=== PATIENT | male | born 1955 | race Caucasian/White ===

== ENCOUNTER 2016-07-07 05:55 | Inpatient (IN) | payer MEDICARE, OTHER ==
[2016-07-07] VITALS (13 sets, daily range): BP systolic 113–231; BP diastolic 31–101; PULSE 92–121; RESP 11–19; O2SAT 95–100
[~2016-07-07] VITALS: Ht 185.4 cm; Wt 85.2 kg
[~2016-07-07 05:55] MED LIST: CALC500T9 PO; HYDR2TAB28 PO; PANT40TA3 PO; SUCR1TAB PO; ZOF8 PO
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
[2016-07-07] MEDS ORDERED: Pantoprazole Inj 80 MG, Pharmacy To Mix 1 EA in 0.9% Sodium Chloride 80 ML IV ONE ×2 (06:10)
[2016-07-07] MEDS ORDERED: Pantoprazole 4 mg/mL 10 mL Inj IVPUSH ONE (06:10)
[2016-07-07] MEDS ORDERED: Promethazine 25 mg/mL Inj IM ONE (06:25)
[2016-07-07] MEDS ORDERED: Ondansetron 8 mg ODT Tablet PO ONE (06:25)
[2016-07-07] MEDS ORDERED: HYDROmorphone 1 mg/mL Inj IM ONE (06:25)
[2016-07-07] MEDS ORDERED: HYDROmorphone 1 mg/mL Inj IVPUSH PRN (07:15)
[2016-07-07 07:30] LABS: BASOPHILS % (AUTO) 0.1 % (0-3); EOSINOPHILS % (AUTO) 0 % (0-5); MONOCYTES % (AUTO) 3.3 % (4-12); Mean Corpuscular Hemoglobin 31.6 pg (27.0-35.0); Mean Corpuscular Volume 96.1 fL (81-100); NEUTROPHILS % (AUTO) 94.3 % (40-74); Platelet Count 327 bil/L (150-400)
[2016-07-07 07:43] LABS: INR 0.98 ratio
[2016-07-07] MEDS ORDERED: Labetalol 5 mg/mL 4 mL Inj IVPUSH ONE (07:45)
[2016-07-07 08:00] LABS: Magnesium 2.3 mg/dL (1.6-2.6)
[2016-07-07] MEDS: Labetalol 5 mg/mL 4 mL Inj IVPUSH ONE ×2 (08:23→08:42)
[2016-07-07] MEDS ORDERED: cloNIDine 0.1 mg Tablet PO ONE (09:00)
--- NOTE | 2016-07-07 09:23 | DRSVH ---
PROCEDURE: X-RAY CHEST ONE VIEW, PORTABLE ([id number]) INDICATIONS: vomiting TECHNIQUE: One view of the chest was acquired. COMPARISON: [facility], CR, XR CHEST 1VW (PORTABLE), 04/05/2016, 3:06. FINDINGS: Surgical changes and devices: tree inspector leads are seen over the chest. Lungs and pleura: No pleural effusions or pneumothorax. Lungs are clear. Vague density over the ce ntral aspect of the left upper lung field is attributed to the first rib. Mediastinum: Mediastinal contours appear normal. Heart size is normal. Bones and chest wall: No suspicious bony lesions. Overlying soft tissues appear unremarkable. IMPRESSION: Acute disease it is not seen in the upright portable chest. Dictated by: Konstantin Alan M.D. on 07/07/2016 at 9:21 Approved by: Konstantin Alan M.D. on 07/07/2016 at 9:21
[2016-07-07] MEDS ORDERED: VIT1TABL57 PO (10:16)
[2016-07-07] MEDS: Ondansetron 2 mg/mL 2 mL Inj IVPUSH PRN ×3 (10:31→21:08)
[2016-07-07] MEDS ORDERED: Ondansetron 2 mg/mL 2 mL Inj IVPUSH PRN (10:40)
[2016-07-07] MEDS ORDERED: Alum-Mag Hydrox-Simeth 30 mL Suspension PO PRN ×2 (10:40→15:35)
[2016-07-07] MEDS ORDERED: hydrALAZINE 20 mg/mL Inj IV ONE (12:25)
--- NOTE | 2016-07-07 12:47 | NUR ---
Admit Pt on unit at 1145, able to transfer self from gurney to bed. Pt actively vomiting brown/bile. Pt has right EJ connected to IV Protonix. Pt's BP is 227/100, will notify . C/o abd pain /, A&O, x3, MURRAY. Declines to remove pants at this time for skin assessment and wants to sleep. 1230 Medication given for BP and pt is sleeping, but awakens to voice. Will continue to monitor. Pt has call light in reach.
[2016-07-07] MEDS ORDERED: Polyethylene Glycol (PEG) 17 Gm Powder PO PRN (15:35)
[2016-07-07] MEDS ORDERED: hydrALAZINE 20 mg/mL Inj IV PRN (16:20)
--- NOTE | 2016-07-07 18:01 | NUR ---
BP/HR 1650 Pt's BP is 200/94. paged and new order for medications given. Meds given and at 1735 BP is 183/73. HR per tele is sinus tachy 109. Pt resting comfortably, no s/s of CP. Pt has history of hypertension. Will continue to monitor.
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
--- NOTE | 2016-07-07 18:41 | NUR ---
Desating Pt sleeping after pain medications given, snoring and O2 desating to high 80's on RA. KIMMIE r/f 4. Pt has YARD DRIVER in place and placed on 3L NC, sating 94-97%. HR still tachy at 100. Continue to monitor
[2016-07-07] MEDS: Pantoprazole 4 mg/mL 10 mL Inj IVPUSH SCH (21:08)
[2016-07-07] MEDS: Insulin Human REGular 300 Unit/3 mL Inj SUBQ SCH (23:10)
[2016-07-08] VITALS (8 sets, daily range): BP systolic 142–184; BP diastolic 68–88; PULSE 86–102; RESP 18; O2SAT 94–100
[2016-07-08] MEDS: Ondansetron 2 mg/mL 2 mL Inj IVPUSH PRN ×6 (00:45→22:26)
--- NOTE | 2016-07-08 04:19 | NUR ---
Pain / activity Continues to have mild nausea and moderate pain adequately controlled with prn Zofran and morphine approx every three hours. Pt is alert, restless in bed, steady on feet when OOB with SBA. Continues to require O2 via NC to keep sats > 92%. Hourly rounding ongoing.
[2016-07-08 07:05] LABS: Magnesium 2.2 mg/dL (1.6-2.6)
[2016-07-08] MEDS: Insulin Human REGular 300 Unit/3 mL Inj SUBQ SCH ×4 (07:30→22:00)
[2016-07-08 08:22] LABS: Mean Corpuscular Hemoglobin 32.1 pg (27.0-35.0); Mean Corpuscular Volume 95.3 fL (81-100)
[2016-07-08] MEDS: Pantoprazole 4 mg/mL 10 mL Inj IVPUSH SCH ×2 (10:43→21:04)
--- NOTE | 2016-07-08 14:17 | NUR ---
[facility] for dialysis: Patient arrived to [facility] via bed for ordered dialysis per tv news director Cheryl. Report received from primary RN. Patient awake, alert, and comfortable. Will continue to monitor. Addendum: 07/08/16 at 1422 by DENA TELLEZ RN semiconductor manufacturing technician called and notified that patient is in room 243-1 for dialysis.
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
--- NOTE | 2016-07-08 14:29 | NUR ---
Off [facility] to Dialysis on MOC Pt taken to [facility] at 1330 for dialysis. Pain better controlled with 2mg IV Morphine and nausea controlled with Zofran. Pt has been hypertensive with BP of 182/85 prior to leaving. Pt refused Hydralazine at this time because of dialysis, report passed to RN who will monitor.
--- NOTE | 2016-07-08 14:40 | NUR ---
Social Work Initial Assessment Attempt: SW attempted to meet with patient at bedside to discuss discharge plan. Patient currently off unit in HD at this time. Patient is a 61 year old male admitted inpatient for upper GI bleed and gastroparesis. Patient payer listed as Medicare and [facility]. Patient has no listed PCP. Patient current with HD on //. Per previous admit notes, Pt resides at home with his son where he remains independent with ADls. Pt uses no DME at baseline and does drive. Pt has no HH history, but has been to [facility] in the past. SW to confirm information upon patient return to unit. SW to follow. PLAN: Initial assessment pending completion. Current with HD. Possible home, no anticipated discharge needs. Vida RODRÍGUEZ
--- NOTE | 2016-07-08 17:15 | PCM.PNMED ---
Subjective Date of Service Jul 08, 2016 Subjective continues to have some nausea but has not had any further vomiting. tolerating clear liquid diet and requesting advancing to full. Exam Vital Signs Vital Sign - Last Date Time Temp Pulse Resp B/P Pulse Ox O2 Delivery O2 Flow Rate FiO2 07/08/16 13:17 182/85 07/08/16 09:46 36.9 102 18 94 Nasal Cannula 2.00 Intake and Output 07/07/16 07/07/16 07/08/16 Cumulative From/Thru 15:00 23:00 07:00 07/07/16 06:08 - 07/08/16 06:21 Intake Total 1000 ml 440 ml 550 ml 1990 ml Output Total 250 ml 0 ml 250 ml Balance 1000 ml 190 ml 550 ml 1740 ml Intake Oral 400 ml 550 ml 950 ml IV Total 1000 ml 40 ml 1040 ml Output Urine Total 0 ml 0 ml 0 ml Emesis 250 ml 250 ml # Bowel Movements 0 0 Exam General: Alert, Cooperative, No Acute Distress Head: Normal Eyes: Scleral Anicteric Nose: Mucous Membr Moist/[place] Mouth: Mucous Membr Moist/[place] Neck: Supple Chest & Lungs: Chest Wall Normal, Clear to auscultation bilat Cardiovascular: Regular Rate/Rhythm Abdomen: Non-tender, Non-distended, Normoactive bowel tones, Soft Extremities: No cyanosis/clubbing/edema bilat Neurological: Grossly Neurologically Intact, Normal Speech IVs and Medications Medications Reviewed: Medications were reviewed in detail Lab and Diagnostics Result Diagram: 07/08/16 0603 07/08/16 0603 X-Rays, CTs and MRIs Date of Service: 07/07/16 0610 PROCEDURE: X-RAY CHEST ONE VIEW, PORTABLE ([id number]) IMPRESSION: Acute disease it is not seen in the upright portable chest. Dictated by: Konstantin Alan M.D. on 07/07/2016 at 9:21 Approved by: Konstantin Alan M.D. on 07/07/2016 at 9:21 Assessment & Plan 60 year old male with multiple co-morbid conditions admitted with nausea, vomiting with possible hematemesis. # Acute on chronic intractable nausea, vomiting with reported hematemesis - h/o multiple admission in past for UGIB - last upper EGD 03/2016 - 1. Severe erosive esophagitis from 32 to 40 cm from the incisors with a small, adherent clot at the distal esophagus 2. Mild nonerosive gastritis.3. Mild duodenitis at the bulb. - h/h remaining stable - c/w PPI - advance diet to full liquid - Consider GI evaluation as inpatient if symptoms persist or h/h trending down otherwise will likely defer further f/u as outpatient. # Acute on somewhat chronic leukocytosis. poa. - ? if reactive to stress of vomiting - Afebrile with stable vital signs. No respiratory symptoms. No other focal symptoms. The patient has a history of leukocytosis in response to stress episodes such as acute abdominal pain, vomiting. - f/u labs # ESRD on Hemodialysis - HD on M/W/F - appreciate Nephrology consult. will f/u w/ recs # Hypertension, chronic. poorly controlled - doesn't seem to be on any BP meds at home! Need to verify - cover with prn IV Hydralazine for now - will f/u w/ nephrology consult for further BP recs # History of diabetes mellitus - c/w ISS Dispo: 2-3 days GI Prophylaxis: Proton Pump Inhibitor VTE Mechanical Devices: Intermittant Pneumatic CD Resuscitation Status: CPR: Attempt Resuscitation (discussed and verified with patient) Aries Arshad Jul 08, 2016 17:15
--- NOTE | 2016-07-08 17:23 | NUR ---
Pain: Patient requesting 2 mg of Morphine During dialysis patient stated 1 mg of Morphine IV ineffective for abdominal pain 11/06. Administered another 1 mg for a total of 2 mg. Will continue to monitor.
--- NOTE | 2016-07-08 18:00 | NUR ---
Dialysis Note: 4 hr tx. Right graft accessed without difficulty, 15 g needles. 400mL/hr NS IV to prevent clotting system, Citrasate used as well. Pt tolerated tx well, requested pain meds and zofran 3 hrs into tx, pain 5/10; floor RN notified and gave morphine and zofran. QB 400, Net UF goal 600. Please see DTR for complete record of VS.
[2016-07-09 00:03] VITALS: BP 168/75; PULSE 76; RESP 20; O2SAT 96
--- NOTE | 2016-07-09 05:47 | NUR ---
Pain / O2 sat Pt returned from dialysis at 1930, stable and alert. Pain and nausea adequately controlled with prn use of morphine and zofran around the clock. Wears O2 at night but still can desat due to apnea; oxygen sat rebounds immediately into high 90s. Hourly rounding ongoing.
[2016-07-09 05:56] VITALS: BP 179/76; PULSE 87; RESP 20; O2SAT 100
[2016-07-09] MEDS: Ondansetron 2 mg/mL 2 mL Inj IVPUSH PRN (06:21)
[2016-07-09] MEDS: Pantoprazole 4 mg/mL 10 mL Inj IVPUSH SCH (06:21)
[2016-07-09] MEDS: Insulin Human REGular 300 Unit/3 mL Inj SUBQ SCH ×2 (07:30→11:30)
[2016-07-09 08:00] VITALS: PULSE 82
[2016-07-09 09:51] VITALS: BP 135/78; PULSE 99; RESP 16; O2SAT 98
--- NOTE | 2016-07-09 10:23 | PCM.DIMED ---
Discharge Instructions Date of Service Jul 09, 2016 Dates of Hospitalization Jul 07, 2016 at 09:10 Discharge Diagnosis Discharge Diagnosis # Acute on chronic intractable nausea, vomiting with possible presenting hematemesis but with stable H/H count. present on admission. Almost resolved. # Acute on somewhat chronic leukocytosis. present on admission. ongoing. Suspect possibly reactive to stress of vomiting # ESRD on Hemodialysis # Hypertension, chronic. present on admission and exacerbated by stress of nausea and vomiting. Improved # History of diabetes mellitus, diet controlled. - HgA1C 6 Diet Low fat, Low Sodium, Heart Healthy, Diabetic Activity No restrictions Call your provider Fever or Chills, Shortness of breath, Bleeding, Chest pain, Vomitting Patient Instructions Seek immediate medical attention if any new or worsening signs or symptoms occur. Follow-up plan 1. Followup with primary care provider / executive secretary social welfare in 3-7 days and for consideration of further gastroenterology referral as outpatient. 2. Resume your outpatient hemodialysis as before Follow-up Provider: Benny Hitchcock MD, Masoud Jul 09, 2016 10:23
--- NOTE | 2016-07-09 13:07 | NUR ---
discharged ate regular lunch without any problems, denied nausea or abd pain. No new Rx, pt will have f/u with Irrigation System Operator and PCP, and GI if needed. His ride will be here at 1500.
--- NOTE | 2016-07-09 15:17 | NUR ---
Social Work initial Assessment D: EMR reviewed. See initial assessment. Pt is a 61Yold male admitted for Upper Gi Bleed and Gastroparesis. Insurance is Medicare and [facility]. PCP is not listed. Readmission score is 5/8-High. SW met with Pt at bedside, SW role explained. Pt lives at home with his son where he remains independent. Pt does not use DME. He does rely on other for transportation. Pt has no HH history. Pt was at [facility] in 2013. Pt receives HD MWF at the [facility]. SW anticipates Pt to discharge home via POV when medically stable, with friend to drive. No discharge needs identified. If needs arise, SW to address. A: Pt who is independent at baseline, HD MWF P:SW anticipates Pt to discharge home via POV when medically stable, with friend to drive. No discharge needs identified. If needs arise, [place] to address. Alfred Addendum: 07/09/16 at 1519 by ALFRED DAY Amended: Links added. Addendum: 07/09/16 at 1519 by ALFRED DAY Pt discharged home via POV. NO needs.
--- NOTE | 2016-07-09 18:14 | PCM.DC.MED ---
Discharge Summary Date of Service Jul 09, 2016 Dates of Hospitalization Date of Hospital Admission Jul 07, 2016 at 09:10 Date of Discharge: Jul 09, 2016 Providers: Admitting Physician: Aries Arshad Primary Care Physician: Chester Attending Physician: Aries Arshad Diagnosis at Time of Discharge Diagnosis at Time of Discharge # Acute on chronic intractable nausea, vomiting with possible presenting hematemesis but with stable H/H count. present on admission. Almost resolved. # Acute on somewhat chronic leukocytosis. present on admission. ongoing. Suspect possibly reactive to stress of vomiting # ESRD on Hemodialysis # Hypertension, chronic. present on admission and exacerbated by stress of nausea and vomiting. Improved # History of diabetes mellitus, diet controlled. - HgA1C 6 Consultations 1. Nephrology Procedures XRay, CTs & MRIs Date of Service: 07/07/16 0610 PROCEDURE: X-RAY CHEST ONE VIEW, PORTABLE ([id number]) IMPRESSION: Acute disease it is not seen in the upright portable chest. Dictated by: Konstantin Alan M.D. on 07/07/2016 at 9:21 Approved by: Konstantin Alan M.D. on 07/07/2016 at 9:21 Brief History 61 year old male with a history of gastroparesis, ERSD on dialysis, diabetes, pancreatitis, and hypertension who has had multiple hospitalizations for recurrent episodes of nausea/vomiting and occasional hematemesis presents again today with complaint of epigastric abdominal pain, nausea, and vomiting. In the ED patient's emesis was noted to be coffee-ground appearing and given concern for GI bleed and other underlying comorbidities he is being admitted to the hospitalist service. patient reports acute onset of these episodes yesterday but significantly worse this morning. He denies noting any red blood in emesis and has not noted any hematochezia or melena. Hospital Course # Acute on chronic intractable nausea, vomiting with reported hematemesis - h/o multiple admission in past for UGIB - last upper EGD 03/2016 - 1. Severe erosive esophagitis from 32 to 40 cm from the incisors with a small, adherent clot at the distal esophagus 2. Mild nonerosive gastritis.3. Mild duodenitis at the bulb. - h/h remaining stable - pt tolerating advanced diet and requesting discharge home today. - Consider GI evaluation as outpatient. # Acute on somewhat chronic leukocytosis. poa. - ? if reactive to stress of vomiting - Afebrile with stable vital signs. No respiratory symptoms. No other focal symptoms. The patient has a history of leukocytosis in response to stress episodes such as acute abdominal pain, vomiting. - f/u labs # ESRD on Hemodialysis - HD on M/W/F - appreciate Nephrology consult. will f/u w/ recs # Hypertension, chronic. - doesn't seem to be on any BP meds at home - cover with prn IV Hydralazine for now - pt notes that BP at home is under good control and is worse when having acute GI symptoms. # History of diabetes mellitus. diet controlled - c/w ISS by day of d/c abdomen is soft, nt, nd, +bs Exam Vital Signs (Last) Date Time Temp Pulse Resp B/P Pulse Ox O2 Delivery O2 Flow Rate FiO2 07/09/16 09:51 36.9 99 16 135/78 98 Room Air 07/08/16 09:46 2.00 Test 07/07/16 07:05 07/07/16 23:15 07/08/16 06:03 Neutrophils (%) (Auto) 94.3% (40-74) Lymphocytes (%) (Auto) 2.2% (14-46) Monocytes (%) (Auto) 3.3% (4-12) Eosinophils (%) (Auto) 0% (0-5) Basophils (%) (Auto) 0.1% (0-3) Prothrombin Time 10.5sec (8.1-12.5) Prothromb Time International Ratio 0.98ratio Total Bilirubin 0.3mg/dL (0.0-1.2) Aspartate Amino Transf (AST/SGOT) 19U/L (0-50) Alanine Aminotransferase (ALT/SGPT) 11U/L (0-44) Alkaline Phosphatase 93U/L (25-160) Total Protein 7.9g/dL (6.4-8.4) Albumin 4.2g/dL (3.4-5.0) Hold [place]ana Top Tube Received (Received) Hemoglobin A1c 6.0% (4.8-5.6) White Blood Count 18.1th/mm3 (3.8-10.1) Red Blood Count 3.43mil/mm3 (4.40-5.80) Hemoglobin 11.0g/dL (13.8-17.2) Hematocrit 32.7% (41.0-50.0) Mean Corpuscular Volume 95.3fL (81-100) Mean Corpuscular Hemoglobin 32.1pg (27.0-35.0) Mean Corpuscular Hemoglobin Concent 33.6% (32.0-37.0) Red Cell Distribution Width 13.4% (12.3-15.4) Platelet Count 308bil/L (150-400) Sodium Level 136mEq/L (134-144) Potassium Level 4.6mEq/L (3.5-5.2) Chloride Level 86mEq/L (97-108) Carbon Dioxide Level 26mmol/L (18-29) Blood Urea Nitrogen 65mg/dL (8-27) Creatinine 8.64mg/dL (0.76-1.27) Estimat Glomerular Filtration Rate 7mL/min (>59) Glucose Level 145mg/dL (60-99) Calcium Level 8.5mg/dL (8.5-10.1) Magnesium Level 2.2mg/dL (1.6-2.6) Discharge Medications Discharge Medications Vit B Cmplx 3/FA/Vit C/Biotin (Starla-Triston Rx Tablet) 1 Each Tablet 1 TABLET PO DAILY (Reported) As needed Calcium Carbonate (Tums) 500 Mg Tab.chew 1,000 MG PO PRN PRN PRN For Indigestion (Reported) Hydromorphone (Hydromorphone) 2 Mg Tablet 2 MG PO Q4H PRN PRN Pain (Reported) Ondansetron (Zofran) 8 Mg Tablet 8 MG PO Q4H PRN PRN For Nausea (Reported) Followup Plan Disposition: Home Follow-up plan 1. Followup with primary care provider / architectural engineering teacher in 3-7 days and for consideration of further gastroenterology referral as outpatient. 2. Resume your outpatient hemodialysis as before Discharge Diet: Low fat, Low Sodium, Heart Healthy, Diabetic Discharge Activity: No restrictions Patient Instructions Seek immediate medical attention if any new or worsening signs or symptoms occur. Follow-up Provider: Benny Hitchcock MD Time spent 35 min copies to: Benny Hitchcock MD, Masoud Jul 09, 2016 18:13
[2016-10-16] MEDS ORDERED: LIDO5CRE17 TOPICAL (17:57)
== END 2016-07-09 13:30 | disposition home or self-care (01) | DRG 377 ==
LOC: SED 05:55 → OSC 09:10
PROVIDERS: ADMIT Internal Medicine; ATTEND Internal Medicine
PROC: 05HP33Z Insertion of Infusion Device into Right External Jugular Vein, Percutaneous Approach (ICD-10-PCS; 2016-07-07)
PROC: 5A1D00Z (ICD-10-PCS; principal; 2016-07-08)
DX: K92.0 Hematemesis (principal); N18.6 End stage renal disease; I12.0 Hypertensive chronic kidney disease with stage 5 chronic kidney disease or end stage renal disease; D72.829 Elevated white blood cell count, unspecified; E11.43 Type 2 diabetes mellitus with diabetic autonomic (poly)neuropathy; E11.29 Type 2 diabetes mellitus with other diabetic kidney complication; Z99.2 Dependence on renal dialysis; Z89.429 Acquired absence of other toe(s), unspecified side; Z87.891 Personal history of nicotine dependence

== ENCOUNTER 2016-10-17 00:05 | Day surgery (SDC) | payer MEDICARE, OTHER ==
[2016-10-17] VITALS (8 sets, daily range): BP systolic 126–151; BP diastolic 61–68; PULSE 74–92; RESP 12–17; O2SAT 94–99
[~2016-10-17] VITALS: Ht 185.4 cm; Wt 84.0 kg
[~2016-10-17 00:05] MED LIST changes: +LIDO5CRE17 TOPICAL; -PANT40TA3 PO; -SUCR1TAB PO; +VIT1TABL57 PO
[2016-10-17] MEDS ORDERED: HEPARIN 1000 UNIT/ML ONE (00:06)
--- NOTE | 2016-10-17 07:00 | NUR ---
ADMISSION NOTE MALE PT ADMITTED FOR FISTULOGRAM. DISCUSSED PLAN OF CARE WITH PT. SEE ADMIT AND FLOW SHEET
[2016-10-17] MEDS ORDERED: Heparin 5,000 Units/500 mL NS Premix IV ONE (08:50)
[2016-10-17] MEDS ORDERED: fentaNYL-PF 50 mCg/mL 2 mL Inj ONE (09:01)
--- NOTE | 2016-10-17 09:45 | NUR ---
POST PROCEDURE NOTE RETURNED FROM RETORT UNLOADER. SEE FLOW SHEET
--- NOTE | 2016-10-17 11:21 | DRSVH ---
PROCEDURE: 1. AV fistulogram. 2. Angioplasty of graft-vein anastomosis. 3. Conscious sedation x39 minutes. 4. Limited ultrasound of the left upper extremity arteriovenous fistula. INDICATIONS: Malfunctioning arteriovenous fistula. COMPARISON: [facility], XA, ARTERIO VENOUS FISTULOGRAM (PNL), 09/20/2015, 10:54. TECHNIQUE: Informed, written consent from the patient was obtained prior to the procedure. Patient wa s brought to the angiography suite, and conscious sedation was administered intravenously by usp staff, while continuous cardiorespiratory monitoring was performed. Maximal sterile barrier t echnique, hand hygiene, skin preparation, and sterile ultrasound technique (if ultrasound was utilize d) was followed. A mask, sterile gown, sterile gloves, a large sterile sheet, hand hygiene, and 2% ch lorhexidine or iodine was utilized for skin antisepsis. The left upper extremity was prepped and drap ed sterilely, and the skin and subcutaneous tissues overlying the peripheral aspect of the dialysis g raft were infused with lidocaine. Limited ultrasound of the left upper extremity arteriovenous fistul a was performed. The peripheral aspect of the dialysis graft was accessed antegrade with a micropunct ure set. Contrast was injected for arteriovenous fistulogram. A Glidewire was advanced into the venou s limb, over which a 6 [place] sheath was advanced. Intravenous heparin was administered. A 40 mm long balloon was expanded to 8.2 mm diameter at the graft-venous anastomosis, followed by repeat arteriov enous fistulogram. Sheath was removed and the venotomy was closed with pursestring closure technique. FLUOROSCOPY TIME: 1.8 minutes FINDINGS: The arterial-graft anastomosis is patent by ultrasound and by arteriovenous fistulogram. T here is high-grade stenosis of the graft vein anastomosis, resolved following 8.2 mm angioplasty. The re is no change in chronic, well collateralized left brachiocephalic vein occlusion. IMPRESSION: 1. High-grade stenosis at the graft-venous anastomosis, resolved following 8.2 mm angioplasty. 2. No change in chronic, well collateralized central venous occlusion. Dictated by: Georgi Gottlieb M.D. on 10/17/2016 at 11:14 Approved by: Georgi Gottlieb M.D. on 10/17/2016 at 11:19
--- NOTE | 2016-10-17 12:15 | NUR ---
DISCHARGED, INSTRUCTIONS GIVEN
== END 2016-10-17 23:59 | disposition home or self-care (01) ==
LOC: SOUO 00:05
PROVIDERS: ATTEND Radiology Diagnostic Radiology
DX: T82.858A Stenosis of other vascular prosthetic devices, implants and grafts, initial encounter (principal); Y83.2 Surgical operation with anastomosis, bypass or graft as the cause of abnormal reaction of the patient, or of later complication, without mention of misadventure at the time of the procedure; I12.0 Hypertensive chronic kidney disease with stage 5 chronic kidney disease or end stage renal disease; E11.29 Type 2 diabetes mellitus with other diabetic kidney complication; N18.6 End stage renal disease; Z99.2 Dependence on renal dialysis; D63.1 Anemia in chronic kidney disease; N25.0 Renal osteodystrophy; Z87.891 Personal history of nicotine dependence
CPT/HCPCS: 36902; 99152; 99153; C1725; C1769; C1894; J1644; J2250; J3010; Q9967

== ENCOUNTER 2016-11-09 23:23 | Inpatient (IN) | payer MEDICARE, OTHER ==
[~2016-11-09] VITALS: Ht 185.4 cm; Wt 85.9 kg
[~2016-11-09 23:23] MED LIST changes: -LIDO5CRE17 TOPICAL
[2016-11-09 23:26] VITALS: BP 194/86; PULSE 111; RESP 21; O2SAT 97
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
[2016-11-09] MEDS ORDERED: 0.9% Sodium Chloride 1,000 ML IV ONE (23:38)
[2016-11-09] MEDS ORDERED: Ondansetron 2 mg/mL 2 mL Inj IVPUSH ONE (23:40)
[2016-11-09] MEDS ORDERED: Pantoprazole 4 mg/mL 10 mL Inj IVPUSH ONE (23:40)
[2016-11-10] VITALS (19 sets, daily range): BP systolic 112–227; BP diastolic 53–99; PULSE 83–119; RESP 16–22; O2SAT 95–100
[2016-11-10] MEDS: HYDROmorphone 1 mg/mL Inj IVPUSH PRN ×5 (00:11→20:29)
[2016-11-10 00:58] LABS: INR 0.99 ratio
[2016-11-10 01:03] LABS: BASOPHILS % (AUTO) 0.2 % (0-3); EOSINOPHILS % (AUTO) 0 % (0-5); MONOCYTES % (AUTO) 3.3 % (4-12); NEUTROPHILS % (AUTO) 94.3 % (40-74); Platelet Count 335 bil/L (150-400)
[2016-11-10 01:09] LABS: Magnesium 1.9 mg/dL (1.6-2.6)
[2016-11-10] MEDS ORDERED: Ondansetron 2 mg/mL 2 mL Inj IVPUSH ONE (01:30)
[2016-11-10] MEDS ORDERED: Haloperidol 5 mg/mL Inj IVPUSH ONE (03:00)
[2016-11-10] MEDS ORDERED: Alum-Mag Hydrox-Simeth 30 mL Suspension PO PRN (03:25)
[2016-11-10] MEDS ORDERED: Polyethylene Glycol (PEG) 17 Gm Powder PO PRN (03:25)
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
--- NOTE | 2016-11-10 06:22 | NUR ---
Admit note Pt arrived to [facility] at 0400. Placed pt on tele. Pt's BP 227/93, repeat BP 209/91. Pt refused admit questions at this time. Pt stating just wanted to sleep. Call light within reach, frequent rounding, bed alarm for safety. Pt's BP continues to be elevated 206/87, paged, orders received for IV labetalol.
[2016-11-10 06:56] LABS: BASOPHILS % (AUTO) 0.2 % (0-3); EOSINOPHILS % (AUTO) 0.1 % (0-5); MONOCYTES % (AUTO) 2.5 % (4-12); Mean Corpuscular Hemoglobin 31.1 pg (27.0-35.0); Mean Corpuscular Volume 91.3 fL (81-100); NEUTROPHILS % (AUTO) 95.2 % (40-74); Platelet Count 333 bil/L (150-400)
[2016-11-10 07:45] LABS: Phosphorus 5.4 mg/dL (2.5-4.9)
[2016-11-10] MEDS: Labetalol 5 mg/mL 4 mL Inj IVPUSH PRN ×2 (07:45→20:32)
[2016-11-10] MEDS: Ondansetron 2 mg/mL 2 mL Inj IVPUSH PRN ×3 (08:04→20:29)
[2016-11-10] MEDS ORDERED: Insulin Human REGular 300 Unit/3 mL Inj IV ONE (08:05)
--- NOTE | 2016-11-10 09:49 | DRSVH ---
PROCEDURE: X-RAY ACUTE ABDOMINAL SERIES ([id number]) INDICATIONS: nausea and vomiting TECHNIQUE: One view chest and two views of the abdomen were acquired. COMPARISON: [facility], CR, XR CHEST 1VW (PORTABLE), 07/07/2016, 6:36. [facility] pital, CR, XR ABD ACUTE SERIES 3VW, 10/27/2015, 8:13. FINDINGS: Surgical changes and devices: None. Chest: Lungs are clear. Heart size is normal. No pleural effusions. No pneumoperitoneum. Abdomen: Bowel gas pattern demonstrates a paucity of small bowel gas. No abnormal dilated bowel loo ps or air-fluid levels. There is gas and stool throughout the colon including the rectum. No suspic ious calcifications. Bones: No suspicious bony lesions. IMPRESSION: 1. Paucity of small bowel gas but no definite evidence of bowel obstruction. Dictated by: Quinton Medina M.D. on 11/10/2016 at 9:41 Approved by: Quinton Medina M.D. on 11/10/2016 at 9:42
--- NOTE | 2016-11-10 09:50 | NUR ---
Hypertension, hyperglycemia, and dark emesis BP 213/92 early in the morning. PRN Labetalol 20 mg IV given. Repeat BP 180/[address] Gaspar aware of repeat BP reading, no further treatment at this point. Bedside BG > 300. 10 units Regular Insulin SQ given as ordered. Vomiting x1 in the morning. Emesis was dark liquid. Sample sent to lab for culture as instructed by Dr. Gaspar. Addendum: 11/10/16 at 1835 by ANITA RTAN RN Pt. is on Labetalol 200 mg PO TID now. BP is controlled. Las BP 128/53. Total 2 emesis since this am. Continue to manage nausea and vomiting with PRN IV Zofran.
--- NOTE | 2016-11-10 13:44 | CONS ---
[address] [address] CONSULTATION REPORT PATIENT: ELYSSA VILLA : 1955 MR#: [id number] ADMIT: 11/10/2016 JOB ID: [id number] DATE OF SERVICE: HISTORY: The patient is a very pleasant, 61-year-old, white male, who has a history of end-stage renal disease. He was admitted to [facility] for recurrent nausea and vomiting along with abdominal pain secondary to chronic diabetic gastroparesis. Renal consultation is being sought for further evaluation and management of his end-stage renal disease. The patient has been on dialysis for a number of years. The etiology of his renal failure is due to longstanding diabetes which has been complicated by peripheral neuropathy, peripheral vascular disease, diabetic renal disease and severe gastroparesis. He has had a number of admissions to our hospital for abdominal pain and intractable vomiting over the last several years. Recently he has had some improvement in his symptomatology with some manipulations of his diet and medication. He states that several days ago he began to have some intermittent sharp mid epigastric pain and cramping. This was associated with nausea and vomiting. He also states that he has felt some fever but no chills. He has had very little he has been able to hold down. The pain is nonradiating. He has not had a bowel movement in several days in part due to lack of oral intake. He denies any nasal congestion, sore throat, cough, wheezing, headache, chest pain, shortness of breath, or lower extremity edema. He normally dialyzes on Friday, Friday, and Friday. His last dialysis was this past Friday and he is scheduled for dialysis tomorrow. PAST MEDICAL HISTORY: Significant for type 2 diabetes with multiple end-organ involvement including gastroparesis, peripheral vascular disease, neuropathy, and diabetic renal disease. He also has a history of hypertension with hypertensive heart disease and hypertensive nephrosclerosis, hyperlipidemia, congestive heart failure, pancreatitis, left upper extremity lymphedema secondary to vascular occlusion, GERD, and osteoarthritis. PAST SURGICAL HISTORY: Is remarkable for a cardiac catheterization, multiple surgeries to both lower extremities, amputation of the great right toe, several dialysis catheters and several fistulas. ALLERGIES: He is allergic to CEPHALOSPORINS. SOCIAL HISTORY: He denies the current use of alcohol or tobacco. He did have a history of tobacco use but states that he quit 17 years ago. He does use marijuana intermittently which may be adding to his vomiting. He normally is able to perform his activities of daily living without significant problems or restriction. MEDICATIONS: At time of my evaluation, include labetalol, Zofran, and Dilaudid. FAMILY HISTORY: Noncontributory. REVIEW OF SYSTEMS: Detailed above. Otherwise is noncontributory. PHYSICAL EXAMINATION: Revealed a well-developed, somewhat pale-appearing, 61-year-old, white male who was alert and oriented x3 and in some mild distress due to his abdominal pain. His blood pressure this morning was 170/74 with a heart rate of 104. HEENT examination is remarkable for pale sclerae. Cornea, conjunctivae, pupils and extraocular muscles were unremarkable. Neck is supple without adenopathy, thyromegaly, or jugular venous distention. Lungs are clear to auscultation. Heart is regular and rhythmical with a soft systolic murmur. Abdomen is soft, with diminished bowel sounds. There is some mild epigastric tenderness which is nonradiating. There was no rebound and some mild guarding was noted. There was no evidence of any hepatosplenomegaly or any masses. Extremities do not show any evidence of any clubbing, cyanosis, or edema. Skin turgor is good. LABORATORY EXAMINATION: This morning, his white count is 12.0, hemoglobin of 11.1, hematocrit 32.6, red cells indices and platelet count are normal. His differential was remarkable for 95 segs. Sodium was 136, potassium 5.4, chloride of 89, bicarbonate 26, BUN and creatinine were 58 and 6.54 respectively. His glucose is 318. Liver function studies are unremarkable and his phosphorus is 5.4. Acute abdominal x-ray series was remarkable only for some small amounts of gas but no evidence of an obstruction. IMPRESSION: 1. Diabetic gastroparesis. 2. End-stage renal disease. 3. Hypertension with hypertensive heart disease and hypertensive nephrosclerosis. 4. Diabetic nephropathy. RECOMMENDATION: I will make arrangements for his dialysis in the morning. I would also like to start him on labetalol 200 mg orally as tolerated every 8 hours Once again, I would like to thank you for allowing me to participate in the care of this most pleasant and interesting patient. I will be following him closely with you.
--- NOTE | 2016-11-10 13:47 | NUR ---
IP status effective today, [facility] signed
[2016-11-10] MEDS ORDERED: Glucose 40% Oral Gel 15 Gm Tube PO PRN (15:05)
[2016-11-10] MEDS: Insulin LISPRO 300 Unit/3 mL Inj SUBQ SCH ×2 (16:59→22:21)
[2016-11-11] VITALS (11 sets, daily range): BP systolic 139–192; BP diastolic 65–89; PULSE 81–98; RESP 18; O2SAT 95–98
[2016-11-11] MEDS: HYDROmorphone 1 mg/mL Inj IVPUSH PRN ×7 (00:23→21:58)
[2016-11-11] MEDS: Ondansetron 2 mg/mL 2 mL Inj IVPUSH PRN ×6 (00:23→21:58)
[2016-11-11] MEDS: Labetalol 5 mg/mL 4 mL Inj IVPUSH PRN ×2 (04:24→21:04)
[2016-11-11 07:15] LABS: Mean Corpuscular Hemoglobin 30.4 pg (27.0-35.0); Mean Corpuscular Volume 93.7 fL (81-100)
[2016-11-11] MEDS: Insulin LISPRO 300 Unit/3 mL Inj SUBQ SCH ×4 (07:49→21:56)
--- NOTE | 2016-11-11 08:34 | NUR ---
Transferred to Dialysis Patient transferred to dialysis at 0800.
--- NOTE | 2016-11-11 11:14 | PCM.PNNEPH ---
Subjective Date of Service November 11, 2016 Subjective Patient is seen during HD. c/o nausea, received IV zofran. BP on the low side during HD, ~ 118/60. Denies cramps, CP, SOB. Exam Vital Signs Vital Sign - Last Date Time Temp Pulse Resp B/P Pulse Ox O2 Delivery O2 Flow Rate FiO2 11/11/16 10:03 81 11/11/16 04:27 163/82 Room Air 11/11/16 03:47 36.9 18 98 Intake and Output 11/10/16 11/10/16 11/11/16 Cumulative From/Thru 15:00 23:00 07:00 11/09/16 23:26 - 11/11/16 05:33 Intake Total 0 ml 400 ml 900 ml Output Total 420 ml 25 ml 445 ml Balance -420 ml 375 ml 455 ml Intake Oral 0 ml 400 ml 400 ml IV Total 500 ml Output Urine Total 0 ml 0 ml 0 ml Emesis 420 ml 25 ml 445 ml # Bowel Movements 1 1 Exam GA: AAOx3, NAD. HEENT: mild pallor,no adenopathy, thyromegaly, or jugular venous distention. Heart: RRR, S1/S2. Lungs: CTA, B/L, no wheezing no rhonchi. Abdomen: soft without any tenderness, rebound, guarding, masses, or hepatosplenomegaly. Extremities:No clubbing or cyanosis. Left AVF with good thrill and bruit. Lab and Diagnostics Result Diagram: 11/11/16 0636 11/11/16 0636 12-lead ECG EKG: Sinus rhythm, heart rate 97, normal axis, prolonged QTC at 483 ms otherwise normal intervals, first-degree AV block, no pathological Q waves or acute ischemic changes suggested elevation or depression. . Plan Impression 1. ESRD - 4 hr, 2K, 35HCO3, DFR 600, BFR 400 Revaclear Max, left AVF, 0 ml UF. 2. DM-2 with gastroparesis, neuropathy and nephropathy. 3. H/o Juana-Griffith tear and esophageal ulcers. 4. HTN with hypertensive nephrosclerosis. 5. Anemia of CKD. 6. Renal osteodystrophy. Plan: Continue HD Q MWF. Repeat Hb after HD. Continue labetalol. May need to add losartan or amlodipine if BP remains elevated. Isabella Pepper MD November 11, 2016 11:14
--- NOTE | 2016-11-11 13:11 | NUR ---
Dialysis note: 4 hr tx. Net UF 800. Accessed left UA fistula by Elena bautista, without difficulty. Pt was nauseous when he arrived and reported pain to floor RN, given zofran and dilaudid by floor RN, Jazmin. Pt stable throughout tx, QB 400. Please see DTR for complete record of VS. Pt returned to floor stable.
[2016-11-11 14:13] LABS: Mean Corpuscular Hemoglobin 30.7 pg (27.0-35.0); Mean Corpuscular Volume 93.5 fL (81-100)
--- NOTE | 2016-11-11 14:23 | NUR ---
Social Work: Initial Assessment Data & Assessment: See Initial assessment. EMR reviewed. Patient is a 61 year old male that admitted on 11/10/16 for ABD pain, Gastroparesis and hematemesis. Patient's does not have a current PCP. Patient's insurance is Medicare and [facility]. Patient does not have an Advance Directive/ DPOA and declined the information. Patient's re-admit score is 5 high risk. Patient CHANELLE is his son Orville Kaplan [phone]. Patient has no LTC or VA benefits. Patient lives independently at home with his family and does not drive at baseline. Patient's home is a three story home with 2 steps to enter and about 24 steps on the inside. [facility] and has no [facility] history. [facility]. Patient reports use occasional THC use, but declined CD assessment and CD resources. Patient did not have any current questions or concerns. Patient does not have any current discharge needs.SW will continue to follow and assist patient throughout stay. Plan: Patient will most likely discharge home no needs via POV when medically ready. SW will continue to follow and assist patient throughout stay. Nida Seay LMSW, FRANCO Addendum: 11/11/16 at 1439 by NIDA SEAY Amended: Links added. Addendum: 11/11/16 at 1446 by NIDA DAY Patient declined assistance with helping to locate a PCP.
--- NOTE | 2016-11-11 15:16 | NUR ---
[place] [facility] [place] [facility] at 1510. Gave report to YOLIS Bunn. Patient left floor via wheelchair with no signs of distress.
--- NOTE | 2016-11-11 15:30 | NUR ---
MOC Assumed patient @15:30, A/O x3. Independent in his room. Oriented to room and unit. Denies any discomfort at this time.
--- NOTE | 2016-11-11 19:36 | NUR ---
GI Patient is complaining of 7/10 abdominal pain that is unlike anything he has experienced accompanied with nausea and vomiting. Patient is requesting to speak with physician. paged
--- NOTE | 2016-11-11 19:38 | PCM.PNMED ---
Subjective Date of Service November 11, 2016 Subjective Patient was seen and examined at bedside today. Patient denies any chest pain, shortness of breath, nausea, vomiting, diarrhea. The patient states that his nausea and vomiting have improved however he is feeling very lethargic at this time. Overnight events: None Exam Vital Signs Vital Sign - Last Date Time Temp Pulse Resp B/P Pulse Ox O2 Delivery O2 Flow Rate FiO2 11/11/16 14:49 37.1 91 18 145/68 95 Room Air Intake and Output 11/10/16 11/10/16 11/11/16 Cumulative From/Thru 15:00 23:00 07:00 11/09/16 23:26 - 11/11/16 05:33 Intake Total 0 ml 400 ml 900 ml Output Total 420 ml 25 ml 445 ml Balance -420 ml 375 ml 455 ml Intake Oral 0 ml 400 ml 400 ml IV Total 500 ml Output Urine Total 0 ml 0 ml 0 ml Emesis 420 ml 25 ml 445 ml # Bowel Movements 1 1 IVs and Medications IV Fluids Physical Exam: GEN: Patient was awake, alert, responding appropriately to questions HEENT: Pupils equal round and reactive to light, extraocular eye muscles intact , Neck soft supple, trachea midline, nomocephalic/atraumatic CV: +S1/S2, regular rate and rhythm, systolic murmur auscultated Respiratory: Decreased, no wheezes, rales, rhonchi GI: +bowel sounds x4, soft, compressible, nontender to palpation EXT: no clubbing, cyanosis, edema, palpable thrill in the left upper extremity secondary to fistula Neuro: Cranial nerves II-XII grossly intact Psych: mood and affect were appropriate Medications Reviewed: Medications were reviewed in detail Lab and Diagnostics Result Diagram: 11/11/16 1408 11/11/16 0636 12-lead ECG EKG: Sinus rhythm, heart rate 97, normal axis, prolonged QTC at 483 ms otherwise normal intervals, first-degree AV block, no pathological Q waves or acute ischemic changes suggested elevation or depression. . Assessment & Plan Orville Kaplan is a 61-year-old male with a past medical history significant for gastroparesis, diabetes mellitus, non-insulin using, and end-stage renal disease on HD 3 times a week presented to [facility] emergency department complaining of intractable nausea and vomiting x 1 day. Acute intractable nausea and vomiting, present on admission. Active. - Patient presented with intractable nausea and vomiting x 1 day with reported coffee ground emesis with associated lower abdominal pain, fever, and chills. - Likely secondary to gastroparesis. - Low threshold for CT abdomen and pelvis with contrast if pain or Sx acutely worsen. - Lipase normal. - Ordered Zofran 4-8 mg every 4 hours as needed. add metoclopramide PRN after acute abd series resulted and no concern for SBO - Monitor for hematemesis - Avoid narcotics as this will likely worsen gastroparesis and symptoms. -May consider consult GI tomorrow if the patient's H&H is stable Acute leukocytosis, present on admission. Active. - Likely secondary to stress response versus infectious process. - May consider stool PCR if he develops diarrhea. - Low threshold for CT abdomen and pelvis with contrast if pain or Sx acutely worsen. Hyponatremia, acute, POA (resolved) - mild decrease in sodium - monitor with am labs ESRD on HD, chronic.Stable. - Patient due for next HD on Friday. - Monitor renal function and electrolytes daily. -Nephrology following Diabetes mellitus type II, non-insulin using, chronic. Stable. - Hemoglobin A1c 6.0 06/2016. - Ordered low dose correctional insulin. - Ordered heart healthy/carbohydrate consistent diet. -Lantus 10 units daily at bedtime Hypertension, chronic. Stable. - Not medically treated. - Patient given one dose of clonidine in ED. - Ordered PRN labetalol 20 mg IV for SBP >160. Hyperlipidemia, chronic. Presumed stable. - Not medically treated. Anemia, chronic. Stable. - Secondary to anemia of chronic disease. - The patient denies hematochezia or melena. The patient reportedly had coffee ground emesis, however, there are no overt signs of bleeding. - Hemoglobin 11.0. - Monitor H&H daily. GERD, chronic. Stable. - Continue Protonix 40 mg IV twice daily. PRN antiemetics: Zofran and Maalox. PRN bowel regimen: Senna and MiraLAX. PRN analgesics: Tylenol. Patient is now an inpatient as he will stay greater than 2 midnights and requires dialysis. There are now some concerns for the patient having an aspiration pneumonia secondary to the chronic nausea and vomiting as he does have a white count now. We will work the patient up for possible aspiration pneumonia. VTE Mechanical Devices: Venous Foot Pump Resuscitation Status: CPR: Attempt Resuscitation Sara Gaspar DO November 11, 2016 19:38
[2016-11-11] MEDS ORDERED: LidocaineVisc 2%:Antacid 1:1 10 mL Syringe PO ONE (19:50)
[2016-11-11] MEDS ORDERED: Pantoprazole Inj 80 MG in 0.9% Sodium Chloride 100 ML IV ONE (19:50)
[2016-11-11 20:10] LABS: BASOPHILS % (AUTO) 0.2 % (0-3); EOSINOPHILS % (AUTO) 0.1 % (0-5); MONOCYTES % (AUTO) 7.4 % (4-12); Mean Corpuscular Hemoglobin 30.7 pg (27.0-35.0); Mean Corpuscular Volume 93.9 fL (81-100); NEUTROPHILS % (AUTO) 85.5 % (40-74); Platelet Count 303 bil/L (150-400)
--- NOTE | 2016-11-11 20:29 | DRSVH ---
PROCEDURE: CT ABDOMEN AND PELVIS WITHOUT CONTRAST ([id number]) INDICATIONS: worsening abd pain, free air, hemoperitoneum? TECHNIQUE: Noncontrast 5 mm thick sections acquired from the diaphragms to the symphysis. 5 mm coronal and sagi ttal reformats were then performed. For radiation dose reduction, the following was used: automated exposure control, adjustment of mA and/or kV according to patient size. COMPARISON: [facility], CT, CT ABD PELVIS W CON, 12/06/2015, 10:02. FINDINGS: Image quality: Excellent. ABDOMEN: Lung bases: Small left hiatal hernia. Lung bases are otherwise clear. Heart size is normal. Solid organs: Liver and spleen are normal in size. The low-density focus within the right hepatic l obe laterally has increased slightly in size, currently measuring 27 mm. Gallbladder is within normal limits. Pancreas is normal in contours. No adrenal nodules. Kidneys are normal in size, without h ydronephrosis or nephrolithiasis. Peritoneum and bowel: A small hiatal hernia is present. There is moderate gastric distention. Unenha nced bowel loops demonstrate otherwise normal wall thickness and caliber. No free fluid or air. Maritza endix is within normal limits. Nodes and vessels: No retroperitoneal or mesenteric adenopathy by size criteria. Aorta and inferior vena cava are normal in caliber. Miscellaneous: No ventral hernias. PELVIS: Genitourinary: Bladder wall thickness is normal. Miscellaneous: No inguinal hernias or adenopathy. Bones: No suspicious bony lesions. No vertebral body compression fractures. IMPRESSION: 1. Moderate gastric distention, possibly indicating gastric outlet obstruction. 2. No pneumoperitoneum. 3. Normal appendix. 4. Small hiatal hernia. 5. Slight increase in size of low-density focus within the right hepatic lobe, which could be further assessed with nonemergent ultrasound, if clinically indicated. Dictated by: Georgi Gottlieb M.D. on 11/11/2016 at 20:22 Approved by: Georgi Gottlieb M.D. on 11/11/2016 at 20:27
--- NOTE | 2016-11-11 20:30 | NUR ---
OFF UNIT Pt off unit via wheelchair with Oswaldo from CT at 2000. Addendum: 11/12/16 at 0139 by KENDELL HINES RN Pt back on unit at 2019.
[2016-11-11] MEDS: Insulin GLARgine 100 Unit/mL Syringe SUBQ SCH (21:00)
[2016-11-12] VITALS (11 sets, daily range): BP systolic 115–185; BP diastolic 51–88; PULSE 72–100; RESP 16–20; O2SAT 95–98
[2016-11-12] MEDS: Ondansetron 2 mg/mL 2 mL Inj IVPUSH PRN ×5 (00:59→18:05)
[2016-11-12] MEDS: HYDROmorphone 1 mg/mL Inj IVPUSH PRN ×2 (00:59→04:24)
[2016-11-12] MEDS: Labetalol 5 mg/mL 4 mL Inj IVPUSH PRN (05:14)
[2016-11-12 07:13] LABS: BASOPHILS % (AUTO) 0 % (0-3); EOSINOPHILS % (AUTO) 0 % (0-5); MONOCYTES % (AUTO) 4.8 % (4-12); Mean Corpuscular Hemoglobin 30.5 pg (27.0-35.0); Mean Corpuscular Volume 94.9 fL (81-100); NEUTROPHILS % (AUTO) 91.5 % (40-74); Platelet Count 262 bil/L (150-400)
[2016-11-12] MEDS ORDERED: Propofol 10,000 mCg/mL 20 mL Inj ONE (08:56)
[2016-11-12] MEDS: HYDROmorphone 0.5 mg/0.5 mL iSecure Syringe IVPUSH PRN ×5 (09:08→20:55)
[2016-11-12] MEDS: Insulin LISPRO 300 Unit/3 mL Inj SUBQ SCH ×4 (09:09→21:44)
[2016-11-12] MEDS: Piperacillin-Tazo 3.375 Gm Inj 3.375 GM in Dextrose 5% Minibag Plus 50 ML IV SCH ×2 (09:09→20:34)
--- NOTE | 2016-11-12 10:06 | NUR ---
Social Work-readiness for discharge: Data:EMR Reviewed. Pt is on day 2 of hospitalization for gastroparesis per H&P. Pt is not medically stable anticipate 1-2 more days. Pt resides at home with his family. Pt goes to dialysis and declines any CD or PCP resources. Pt's family to provide transport home at discharge. per RN notes, pt has been up independent in his room. No anticipated discharge needs. SW will continue to follow if needs arise. Assessment:Pt who is independent at baseline. Plan:Pt to discharge home when medically stable via POV. No anticipated discharge needs. SW will continue to follow if needs arise. MARCOS Duval
[2016-11-12] MEDS ORDERED: Promethazine Inj 25 MG in Dextrose 5%-Pha MIX 50 ML IV PRN (10:10)
--- NOTE | 2016-11-12 10:46 | PCM.PNNEPH ---
Subjective Date of Service November 12, 2016 Subjective Nausea persists. C/o abd pain, fair appetite. Just received IV dilaudid and zofran. Exam Vital Signs Vital Sign - Last Date Time Temp Pulse Resp B/P Pulse Ox O2 Delivery O2 Flow Rate FiO2 11/12/16 06:09 73 120/53 11/12/16 05:09 36.9 20 96 Room Air Intake and Output 11/11/16 11/11/16 11/12/16 Cumulative From/Thru 15:00 23:00 07:00 11/09/16 23:26 - 11/12/16 05:36 Intake Total 380 ml 340 ml 1620 ml Output Total 800 ml 0 ml 0 ml 1245 ml Balance -800 ml 380 ml 340 ml 375 ml Intake Oral 350 ml 100 ml 850 ml IV Total 240 ml 740 ml Tube Irrigant 30 ml 30 ml Output Urine Total 0 ml 0 ml 0 ml Emesis 445 ml Ultrafiltrate 800 ml 800 ml # Voids 0 0 # Bowel Movements 0 1 Exam GA: AAOx3, NAD. HEENT: mild pallor, no adenopathy, thyromegaly, or jugular venous distention. Heart: RRR, S1/S2. Lungs: CTA, B/L, no wheezing no rhonchi. Abdomen: soft without any tenderness, rebound, guarding, masses, or hepatosplenomegaly. Extremities:No clubbing or cyanosis. Left arm sweling, left AVF with good thrill and bruit. Lab and Diagnostics Result Diagram: 11/12/16 0630 11/12/16 0630 12-lead ECG EKG: Sinus rhythm, heart rate 97, normal axis, prolonged QTC at 483 ms otherwise normal intervals, first-degree AV block, no pathological Q waves or acute ischemic changes suggested elevation or depression. . Plan Impression 1. ESRD, HD dependent. 2. DM-2 with gastroparesis, neuropathy and nephropathy. 3. H/o Juana-Griffith tear and esophageal ulcers. 4. HTN with hypertensive nephrosclerosis. 5. Anemia of CKD. 6. Renal osteodystrophy. Plan: Supportive treatment. Continue HD Q MWF. Continue Labetalol. Isabella Pepper MD November 12, 2016 10:46
[2016-11-12] MEDS ORDERED: 0.9% Sodium Chloride 500 ML IV ONE ×2 (11:00→16:11)
--- NOTE | 2016-11-12 12:51 | NUR ---
IV IV went was leaking badly, unsure of how much medication was actually getting through. New IV started thanks to IV therapy, pt requested re dose of dilaudid as the recent dose likely leaked out. Awaiting response from Dr Gaspar. Addendum: 11/12/16 at 1257 by GUILLERMO HERNANDEZ RN Ok from dr gaspar to give new dilaudid dose.
--- NOTE | 2016-11-12 15:38 | PCM.PNMED ---
Subjective Date of Service November 12, 2016 Subjective Patient was seen and examined at bedside today. Patient denies any chest pain, shortness of breath, diarrhea. The patient states that he had had a bowel movement however he has had significant abdominal pain and his nausea and vomiting have returned. Overnight events: Patient started having a new onset of abdominal pain and a CT was done for concerns of possible perforation. No perforations were found but the patient was found to have an increase in gastroparesis with a possible gastric outlet obstruction Exam Vital Signs Vital Sign - Last Date Time Temp Pulse Resp B/P Pulse Ox O2 Delivery O2 Flow Rate FiO2 11/12/16 10:42 80 11/12/16 08:33 36.9 18 165/74 98 Room Air Intake and Output 11/11/16 11/11/16 11/12/16 Cumulative From/Thru 15:00 23:00 07:00 11/09/16 23:26 - 11/12/16 05:36 Intake Total 380 ml 340 ml 1620 ml Output Total 800 ml 0 ml 0 ml 1245 ml Balance -800 ml 380 ml 340 ml 375 ml Intake Oral 350 ml 100 ml 850 ml IV Total 240 ml 740 ml Tube Irrigant 30 ml 30 ml Output Urine Total 0 ml 0 ml 0 ml Emesis 445 ml Ultrafiltrate 800 ml 800 ml # Voids 0 0 # Bowel Movements 0 1 Exam Physical Exam: GEN: Patient was awake, alert, responding appropriately to questions HEENT: Pupils equal round and reactive to light, extraocular eye muscles intact , Neck soft supple, trachea midline, nomocephalic/atraumatic CV: +S1/S2, regular rate and rhythm, systolic murmur auscultated Respiratory: CTAB, no wheezes, rales, rhonchi GI: +bowel sounds x4, soft, compressible, mild tenderness to palpation EXT: no clubbing, cyanosis, edema Neuro: Cranial nerves II-XII grossly intact Psych: mood and affect were appropriate IVs and Medications Medications Reviewed: Medications were reviewed in detail Lab and Diagnostics Result Diagram: 11/12/1662911/12/16629 12-lead ECG EKG: Sinus rhythm, heart rate 97, normal axis, prolonged QTC at 483 ms otherwise normal intervals, first-degree AV block, no pathological Q waves or acute ischemic changes suggested elevation or depression. . Assessment & Plan Orville Kaplan is a 61-year-old male with a past medical history significant for gastroparesis, diabetes mellitus, non-insulin using, and end-stage renal disease on HD 3 times a week presented to [facility] emergency department complaining of intractable nausea and vomiting x 1 day. Acute intractable nausea and vomiting, present on admission. Active. - Patient presented with intractable nausea and vomiting x 1 day with reported coffee ground emesis with associated lower abdominal pain, fever, and chills. - Likely secondary to gastroparesis. -CT abdomen and pelvis showed worsening gastroparesis with possible gastric outlet obstruction -Patient scheduled for EGD later today -Consider starting Protonix twice a day and sucralfate depending on study findings and recommendations from GI after EGD - Lipase normal. - Ordered Zofran 4-8 mg every 4 hours as needed. -Phenergan 25 mg every 6 when necessary nausea vomiting - Continue to monitor for further hematemesis -0.5 mg of Dilaudid every 6 when necessary pain -GI consulted (Dr. Kelly) Acute leukocytosis, present on admission. Active. -Most likely secondary to aspiration pneumonia - Viral PCR - Continue Zosyn Hyponatremia, acute, POA - mild decrease in sodium - 500 mL bolus of IV fluids ran it 200 mL an hour - monitor with am labs ESRD on HD, chronic.Stable. - Patient due for next HD on Friday - Monitor renal function and electrolytes daily. -Nephrology following Diabetes mellitus type II, non-insulin using, chronic. Stable. - Hemoglobin A1c 6.0 06/2016 - Ordered low dose correctional insulin. - Ordered heart healthy/carbohydrate consistent diet. -Lantus 10 units daily at bedtime Hypertension, chronic. Stable. - Not medically treated. - Patient given one dose of clonidine in ED. -Continue labetalol 200 mg 3 times a day - Ordered PRN labetalol 20 mg IV for SBP >160. Hyperlipidemia, chronic. Presumed stable. - Not medically treated. - Follow-up lipid panel Anemia, chronic. Stable. - Secondary to anemia of chronic disease from chronic renal failure. -Positive hematemesis yesterday - Hemoglobin trending down - Monitor H&H daily. GERD, chronic. Stable. - Continue Protonix 40 mg IV twice daily. PRN antiemetics: Zofran and Maalox. PRN bowel regimen: Senna and MiraLAX. PRN analgesics: Tylenol. The patient is being treated for possible aspiration pneumonia at this time. The patient will also have an EGD done later today for possible workup as to the continued nausea and vomiting to ensure there is nothing other than gastroparesis involved. VTE Mechanical Devices: Venous Foot Pump Resuscitation Status: CPR: Attempt Resuscitation Sara Gaspar DO November 12, 2016 15:38
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
[2016-11-12] MEDS ORDERED: Lactated Ringer's 1,000 ML IV SCH (17:17)
--- NOTE | 2016-11-12 17:17 | PCM.ANEP1 ---
Post Anesthesia Phase 1 PACU Phase 1 Assessment Date of Service: November 12, 2016 Vital Signs Vital Signs Date Time Temp Pulse Resp B/P Pulse Ox O2 Delivery O2 Flow Rate FiO2 11/12/16 16:39 36.7 92 16 178/88 98 Room Air 11/12/16 10:42 80 Anesthetic Administered: GA Level of Alertness: Awake, talking MURRAY's with Equal Strength: Yes Pain: No Nausea or Vomiting: No Oxygen Delivery: Room Air Lungs: Clear to Auscultation Complications: No Follow up Care: No Dashawn Garcia MD November 12, 2016 17:17
[2016-11-12] MEDS: Pantoprazole 4 mg/mL 10 mL Inj IVPUSH SCH (18:05)
[2016-11-12] MEDS: MetoCLOpramide 5 mg/mL 2 mL Inj IVPUSH PRN (20:55)
[2016-11-12] MEDS: Insulin GLARgine 100 Unit/mL Syringe SUBQ SCH (21:00)
--- NOTE | 2016-11-12 21:50 | NUR ---
Insulin Pt. refused Lantus this shift, BG was 167, notified via [employer] paging. Will continue to monitor.
--- NOTE | 2016-11-12 23:54 | ENDO ---
[address] [address] ENDOSCOPY PROCEDURE PATIENT: ELYSSA VILLA : 1955 MR#: [id number] ADMIT: 11/10/2016 JOB ID: [id number] PROCEDURE: Esophagogastroduodenoscopy. INDICATIONS: Nausea and vomiting. Please see Dr. Dashawn Garcia' anesthesia report for details regarding ASA classification, Mallampati score, and medications. INSTRUMENT USED: GIF H 180 J. PROCEDURE DETAILS: After informed consent was obtained, the patient was brought to the gastrointestinal suite where he was placed on oxygen via nasal cannula and monitored with continuous pulse oximeter, telemetry, and blood pressure monitoring. A time-out was performed, then he was placed in a left lateral decubitus position and medications were administered for sedation. A bite block was placed. Standard EGD scope was then inserted through the bite block and advanced under direct visualization to the second portion of the duodenum without difficulty. FINDINGS: 1. Normal-appearing 2nd and 1st portion of duodenum. 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 2. Normal-appearing pylorus. In the antrum and body of the stomach, there were flecks of old blood that we irrigated. We were able to clear. Retroflexed views in the gastric body revealed a normal-appearing cardia and fundus. 3. No active bleeding was seen in the stomach and following clearing of old blood, no further evidence of blood was seen. 4. The diaphragmatic hiatus was at approximately 41 cm. The GE junction was at 37 cm. Extending from the GE junction at 37 cm to 30 cm proximally, the esophagus was ulcerated and friable. Appearance was consistent with ulcerative esophagitis. Multiple biopsies were obtained. IMPRESSION: LA class D ulcerative esophagitis. RECOMMENDATIONS: 1. PPI b.i.d. 2. Consider starting Reglan 30 minutes before meals and at bedtime. COMPLICATIONS: None. ESTIMATED BLOOD LOSS: Less than 5 mL.
[2016-11-13] VITALS (7 sets, daily range): BP systolic 116–178; BP diastolic 51–83; PULSE 80–95; RESP 16; O2SAT 97–98
[2016-11-13] MEDS: HYDROmorphone 0.5 mg/0.5 mL iSecure Syringe IVPUSH PRN ×4 (00:28→13:01)
[2016-11-13] MEDS: Ondansetron 2 mg/mL 2 mL Inj IVPUSH PRN ×5 (00:29→21:38)
[2016-11-13] MEDS: Insulin LISPRO 300 Unit/3 mL Inj SUBQ SCH ×4 (08:06→21:57)
[2016-11-13] MEDS: Pantoprazole 4 mg/mL 10 mL Inj IVPUSH SCH ×2 (08:06→17:40)
[2016-11-13] MEDS: Piperacillin-Tazo 3.375 Gm Inj 3.375 GM in Dextrose 5% Minibag Plus 50 ML IV SCH ×2 (08:06→22:17)
[2016-11-13] MEDS: Polyethylene Glycol (PEG) 17 Gm Powder PO SCH ×2 (08:30→20:30)
[2016-11-13 08:40] LABS: Mean Corpuscular Volume 93.6 fL (81-100)
[2016-11-13] MEDS: MetoCLOpramide 5 mg/mL 2 mL Inj IVPUSH PRN (08:51)
[2016-11-13] MEDS ORDERED: DEXTROSE 5% IM PRN (09:09)
[2016-11-13] MEDS ORDERED: PROMETHAZINE IM PRN (09:09)
[2016-11-13] MEDS ORDERED: PHA MIX IM PRN (09:09)
[2016-11-13 09:23] LABS: Phosphorus 5.1 mg/dL (2.5-4.9); Unsaturated Iron Binding 130.6 ug/dL
--- NOTE | 2016-11-13 10:31 | PCM.PNNEPH ---
Subjective Date of Service November 13, 2016 Subjective s/p EGD showed ulcerative colitis, status post biopsy, no active bleeding identified. Patient is seen during dialysis. He complains of being nauseated. Doing about the same, no improvement so far Exam Vital Signs Vital Sign - Last Date Time Temp Pulse Resp B/P Pulse Ox O2 Delivery O2 Flow Rate FiO2 11/13/16 10:20 80 11/13/16 06:07 36.8 16 154/70 98 Room Air Intake and Output 11/12/16 11/12/16 11/13/16 Cumulative From/Thru 15:00 23:00 07:00 11/09/16 23:26 - 11/13/16 05:59 Intake Total 515 ml 870 ml 3005 ml Output Total 0 ml 1245 ml Balance 515 ml 870 ml 1760 ml Intake Oral 180 ml 50 ml 1080 ml IV Total 335 ml 820 ml 1895 ml Tube Irrigant 30 ml Output Urine Total 0 ml Emesis 0 ml 445 ml Ultrafiltrate 800 ml # Voids 4 4 # Bowel Movements 0 1 Exam GA: AAOx3, NAD. HEENT: mild pallor, no adenopathy, thyromegaly, or jugular venous distention. Heart: RRR, S1/S2. Lungs: CTA, B/L, no wheezing no rhonchi. Abdomen: soft, mild tenderness on the epigastric area, no rebound, guarding, masses, or hepatosplenomegaly. Extremities:No clubbing or cyanosis. Left arm swelling, left AVF with good thrill and bruit. Lab and Diagnostics Result Diagram: 11/13/1680411/13/16 08 12-lead ECG EKG: Sinus rhythm, heart rate 97, normal axis, prolonged QTC at 483 ms otherwise normal intervals, first-degree AV block, no pathological Q waves or acute ischemic changes suggested elevation or depression. . Plan Impression 1. ESRD, HD dependent. 2. DM-2 with gastroparesis, neuropathy and nephropathy. 3. H/o [place] tear and esophageal ulcers. s/p EGD on 11/12: ulcerative esophagitis. 4. HTN with hypertensive nephrosclerosis. 5. Anemia of CKD. 6. Renal osteodystrophy. 7. High-grade stenosis at the graft-venous anastomosis, s/p angioplasty on 10/17. Plan: HD per schedule. Follow GI recommendation. Continue current antihypertensive medications. Will give IV Aranesp 60 mcg during HD treatment. Repeat ferritin level. Isabella Pepper MD November 13, 2016 10:30
[2016-11-13] MEDS ORDERED: Darbepoetin Alfa 60 mCg/0.3 mL Inj IV ONE (10:35)
--- NOTE | 2016-11-13 10:47 | PCM.PNMED ---
Subjective Date of Service November 13, 2016 Subjective Patient was mildly nauseous but did not have any vomiting Patient denied epigastric pain Explained the result of the endoscopy Started full liquid diet HD today Exam Vital Signs Vital Sign - Last Date Time Temp Pulse Resp B/P Pulse Ox O2 Delivery O2 Flow Rate FiO2 11/13/16 10:20 80 11/13/16 06:07 36.8 16 154/70 98 Room Air Intake and Output 11/12/16 11/12/16 11/13/16 Cumulative From/Thru 15:00 23:00 07:00 11/09/16 23:26 - 11/13/16 05:59 Intake Total 515 ml 870 ml 3005 ml Output Total 0 ml 1245 ml Balance 515 ml 870 ml 1760 ml Intake Oral 180 ml 50 ml 1080 ml IV Total 335 ml 820 ml 1895 ml Tube Irrigant 30 ml Output Urine Total 0 ml Emesis 0 ml 445 ml Ultrafiltrate 800 ml # Voids 4 4 # Bowel Movements 0 1 Exam NAD, comfortably laying down on the bed no JVD, MMM, no LAD RRR, nl s1, s2 no mrg CTAB, no w,c S,ND,NT,normoactive BS+ warm, no edema, pulses 2/2 IVs and Medications Medications Reviewed: Medications were reviewed in detail Lab and Diagnostics Result Diagram: 11/13/1680411/13/16804 12-lead ECG EKG: Sinus rhythm, heart rate 97, normal axis, prolonged QTC at 483 ms otherwise normal intervals, first-degree AV block, no pathological Q waves or acute ischemic changes suggested elevation or depression. . Assessment & Plan Orville Kaplan is a 61-year-old male with a past medical history significant for gastroparesis, diabetes mellitus, non-insulin using, and end-stage renal disease on HD 3 times a week presented to [facility] emergency department complaining of intractable nausea and vomiting x 1 day. acute, active Acute intractable nausea and vomiting, likely due to ulcerative esophagitis, possible gastroparesis with uncontrolled DM, present on admission, EGD 11/12 showed ulcerative esophagitis, likely due to underlying GERD. biopsy in progress , no pathognomic findings for viral/fungal/cancerous lesions found. -continue PPI bid, -zofran 4-8mg q4h prn, Phenergan 25 mg q6h prn, likely to switch to PO once pt tolerate diet, sx controlled -appreciate further recs from Dr. Kelly) Acute leukocytosis, present on admission. Active. suspected Most likely secondary to aspiration pneumonia, Viral PCR not done, pt started on Zosyn for 2days -given no high suspicion of PNA, no respiratory sx, good oxygenation, will stop zosyn today and watch -trends wbc, PCT, fever curve Hyponatremia, acute, POA, s/p 500 mL bolus, , likely GI fluid loss, trends for now chronic, stable, resolved, ESRD on HD, chronic.Stable. continue HD as scheduled Friday - Monitor renal function and electrolytes daily. -Nephrology following Diabetes mellitus type II, non-insulin using, chronic. Stable. - Hemoglobin A1c 6.0 06/2016 - Ordered low dose correctional insulin. - Ordered heart healthy/carbohydrate consistent diet. -Lantus 10 units daily at bedtime Hypertension, chronic. Stable. - Not medically treated. - Patient given one dose of clonidine in ED. -Continue labetalol 200 mg 3 times a day - Ordered PRN labetalol 20 mg IV for SBP >160. Hyperlipidemia, chronic. Presumed stable. - Not medically treated. - Follow-up lipid panel Anemia, chronic. Stable. - Secondary to anemia of chronic disease from chronic renal failure. -Positive hematemesis yesterday - Hemoglobin trending down - Monitor H&H daily. GERD, chronic. Stable. - Continue Protonix 40 mg IV twice daily. dispo: likely 1-2more days diet; slowly advance diet Full code VTE Mechanical Devices: Venous Foot Pump Resuscitation Status: CPR: Attempt Resuscitation Time spent 35 minutes Brina Sol MD November 13, 2016 10:47
--- NOTE | 2016-11-13 13:50 | NUR ---
Dialysis note: 4 hrs tx 1000 ml net UF FELISA graft, accessed w/ no problems Pls see DTR for VS details Qb 400 No heparin given, Citrasate used instead + NS @ 300 ml/hr given O2 @ 2L via NC on during tx Phenergan IV given at start of tx Aranesp 60 mcg IV given as ordered PRN Dilaudid 0.5 mg IV + Zofran 8 mg IV given for pain and nausea Tolerated tx, slept at intervals Graft needle sites clotted w/in 10 min Stable condition at end of tx Report given to Jose LAGOS
[2016-11-13] MEDS: HYDROmorphone 1 mg/mL Inj IVPUSH PRN ×2 (17:41→21:41)
--- NOTE | 2016-11-13 19:48 | NUR ---
Pain/Nausea Pt has had decent pain and nausea management today, pt reports that reglan is ineffective, and that promethazine doesn't work well either, only zofran. Pain has been increased today, dilaudid barely keeping the pain down.
[2016-11-13] MEDS: Insulin GLARgine 100 Unit/mL Syringe SUBQ SCH ×2 (21:00→21:56)
--- NOTE | 2016-11-13 21:32 | NUR ---
Refused Meds Pt refused Lantus "these aren't my docs, I won't take it". I explained that his blood sugar has been high, so it is standard for an evening dose of Lantus to provide longer coverage. Pt also refused Miralax, but will take both stool softeners. "I can refuse to have diarrhea, can't I?". Absolutely, Orville. This nurse did explain that these are subtle medications. Addendum: 11/13/16 at 2202 by ADRIAN ORDOÑEZ RN UPDATE Pt reconsidered Lantus and accepted it. He stated that in the past, his blood sugar dropped too much overnight. I informed him I would be checking at night to make sure he doesn't get too low.
[2016-11-14] MEDS: Ondansetron 2 mg/mL 2 mL Inj IVPUSH PRN (02:15)
[2016-11-14] MEDS: HYDROmorphone 1 mg/mL Inj IVPUSH PRN (02:16)
--- NOTE | 2016-11-14 03:27 | NUR ---
Pain/Nausea Pt reported Pain and Nausea early on shift. 1 dose of Dilaudid and Zofran administered to relief of patient. Pt relaxed and comfortable. Several hours later, symptoms returned another dosage of both helped to relief symptoms. Pt uses call light appropriately, hourly rounding continues.
[2016-11-14 03:30] VITALS: BP 125/64; PULSE 68; RESP 16; O2SAT 97
[2016-11-14 05:29] VITALS: PULSE 80
[2016-11-14 05:40] VITALS: PULSE 91
[2016-11-14 05:52] LABS: BASOPHILS % (AUTO) 0.3 % (0-3); EOSINOPHILS % (AUTO) 1.1 % (0-5); Mean Corpuscular Hemoglobin 30.9 pg (27.0-35.0); Mean Corpuscular Volume 94.7 fL (81-100); NEUTROPHILS % (AUTO) 67.8 % (40-74); Platelet Count 247 bil/L (150-400)
[2016-11-14 06:37] LABS: Magnesium 1.8 mg/dL (1.6-2.6); Phosphorus 3.1 mg/dL (2.5-4.9)
[2016-11-14 07:56] VITALS: BP 135/63; PULSE 74; RESP 12; O2SAT 97
[2016-11-14 08:00] VITALS: PULSE 73
[2016-11-14] MEDS: Pantoprazole 4 mg/mL 10 mL Inj IVPUSH SCH (08:01)
[2016-11-14] MEDS: Insulin LISPRO 300 Unit/3 mL Inj SUBQ SCH ×2 (08:01→11:46)
[2016-11-14] MEDS: Polyethylene Glycol (PEG) 17 Gm Powder PO SCH (08:02)
[2016-11-14] MEDS ORDERED: LABE200T PO (08:34)
[2016-11-14] MEDS ORDERED: PANT40TA2 PO (08:34)
[2016-11-14] MEDS ORDERED: METO10TA3 PO (08:34)
--- NOTE | 2016-11-14 11:12 | NUR ---
Pat ELIZABETH requests that micro resp viral swab not be collected.
--- NOTE | 2016-11-14 11:52 | PCM.DIMED ---
Discharge Instructions Date of Service November 14, 2016 Dates of Hospitalization November 10, 2016 at 03:31 Discharge Diagnosis Discharge Diagnosis Acute intractable nausea and vomiting, likely due to ulcerative esophagitis, possible gastroparesis with uncontrolled DM Acute leukocytosis, likely reactive Hyponatremia, likely GI fluid loss Medication Instructions you can take zofran, Reglan 30minute prior to meals to prevent nausea, vomiting as needed Please continue to take Protonix 40mg twice a day Please note that Labetalol 200mg three times added to your blood pressure regimen. Please continue it. Diet Renal Diet, Other (please eat small and frequent amount of food) Activity No restrictions Call your provider Shortness of breath, Chest pain, Excessive diarrhea Patient Instructions You were hospitalized with intractable nausea, vomiting, found to have ulcer in you esophagus, it's likely that esophagus ulcer was contributing to your symptoms, as well as your diabetes and gastroparesis, Please note that you need follow up on biopsy result with or , Please follow up medicine instruction, dialysis as scheduled Follow-up Provider: Benny Hitchcock MD Follow-up with PCP in: 1 week Brina Sol MD November 14, 2016 11:52
--- NOTE | 2016-11-14 12:42 | NUR ---
Discharge Pt dc'd ambulatory to meet daughter at ED lot at 1222. All discharge paperwork and instructions reviewed. Pt verbalized understanding of instructions and new medications/ follow up needs. All belongings with pt. IV dc'd w/o complications.
--- NOTE | 2016-11-14 14:55 | PCM.DC.MED ---
Discharge Summary Date of Service November 14, 2016 Dates of Hospitalization Date of Hospital Admission November 10, 2016 at 03:31 Date of Discharge: November 14, 2016 Providers: Admitting Physician: Willa Saldivar DO Primary Care Physician: Nopcp Attending Physician: Willa Saldivar DO Diagnosis at Time of Discharge Diagnosis at Time of Discharge acute dx Acute intractable nausea and vomiting, likely due to ulcerative esophagitis, possible gastroparesis with uncontrolled DM Acute leukocytosis, likely reactive Hyponatremia, likely GI fluid loss chronic dx ESRD on HD, Diabetes mellitus type II, Hypertension Hyperlipidemia Anemia, Consultations GI Procedures XRay, CTs & MRIs PROCEDURE: CT ABDOMEN AND PELVIS WITHOUT CONTRAST ([id number]) INDICATIONS: worsening abd pain, free air, hemoperitoneum? TECHNIQUE: Noncontrast 5 mm thick sections acquired from the diaphragms to the symphysis. 5 mm coronal and sagittal reformats were then performed. For radiation dose reduction, the following was used: automated exposure control, adjustment of mA and/or kV according to patient size. COMPARISON: [facility], CT, CT ABD PELVIS W CON, 12/06/2015, 10:02. FINDINGS: Image quality: Excellent. ABDOMEN: Lung bases: Small left hiatal hernia. Lung bases are otherwise clear. Heart size is normal. Solid organs: Liver and spleen are normal in size. The low-density focus within the right hepatic lobe laterally has increased slightly in size, currently measuring 27 mm. Gallbladder is within normal limits. Pancreas is normal in contours. No adrenal nodules. Kidneys are normal in size, without hydronephrosis or nephrolithiasis. Peritoneum and bowel: A small hiatal hernia is present. There is moderate gastric distention. Unenhanced bowel loops demonstrate otherwise normal wall thickness and caliber. No free fluid or air. Appendix is within normal limits. Nodes and vessels: No retroperitoneal or mesenteric adenopathy by size criteria. Aorta and inferior vena cava are normal in caliber. Miscellaneous: No ventral hernias. PELVIS: Genitourinary: Bladder wall thickness is normal. Miscellaneous: No inguinal hernias or adenopathy. Bones: No suspicious bony lesions. No vertebral body compression fractures. IMPRESSION: 1. Moderate gastric distention, possibly indicating gastric outlet obstruction. 2. No pneumoperitoneum. 3. Normal appendix. 4. Small hiatal hernia. 5. Slight increase in size of low-density focus within the right hepatic lobe, which could be further assessed with nonemergent ultrasound, if clinically indicated. Dictated by: Georgi Gottlieb M.D. on 11/11/2016 at 20:22 Approved by: Georgi Gottlieb M.D. on 11/11/2016 at 20:27 ECG 12 Lead EKG: Sinus rhythm, heart rate 97, normal axis, prolonged QTC at 483 ms otherwise normal intervals, first-degree AV block, no pathological Q waves or acute ischemic changes suggested elevation or depression. . Invasive Procedures ENDOSCOPY PROCEDURE PATIENT: ORVILLE KAPLAN : 1955 MR#: [id number] ADMIT: 11/10/2016 JOB ID: [id number] PROCEDURE: Esophagogastroduodenoscopy. INDICATIONS: Nausea and vomiting. Please see Dr. Dashawn Garcia' anesthesia report for details regarding ASA classification, Mallampati score, and medications. INSTRUMENT USED: GIF H 180 J. PROCEDURE DETAILS: After informed consent was obtained, the patient was brought to the gastrointestinal suite where he was placed on oxygen via nasal cannula and monitored with continuous pulse oximeter, telemetry, and blood pressure monitoring. A time-out was performed, then he was placed in a left lateral decubitus position and medications were administered for sedation. A bite block was placed. Standard EGD scope was then inserted through the bite block and advanced under direct visualization to the second portion of the duodenum without difficulty. FINDINGS: 1. Normal-appearing 2nd and 1st portion of duodenum. 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 2. Normal-appearing pylorus. In the antrum and body of the stomach, there were flecks of old blood that we irrigated. We were able to clear. Retroflexed views in the gastric body revealed a normal-appearing cardia and fundus. 3. No active bleeding was seen in the stomach and following clearing of old blood, no further evidence of blood was seen. 4. The diaphragmatic hiatus was at approximately 41 cm. The GE junction was at 37 cm. Extending from the GE junction at 37 cm to 30 cm proximally, the esophagus was ulcerated and friable. Appearance was consistent with ulcerative esophagitis. Multiple biopsies were obtained. IMPRESSION: LA class D ulcerative esophagitis. RECOMMENDATIONS: 1. PPI b.i.d. 2. Consider starting Reglan 30 minutes before meals and at bedtime. COMPLICATIONS: None. ESTIMATED BLOOD LOSS: Less than 5 mL. Barb Kelly MD 11/12/16 5473 Brief History HPI obtained by on 09/10 Orville Kaplan is a 61-year-old male with a past medical history significant for gastroparesis, diabetes mellitus, non-insulin using, and end-stage renal disease on HD 3 times a week who presented to [facility] emergency department complaining of nausea and vomiting x 1 day. The patient reports that 1-2 days ago he began having nausea and vomiting. He reports that he has accompanying lower abdominal pain that is aching and throbbing in quality with intermittent sharpness. He rates his abdominal pain as a +6 out of 10 on a pain scale. He endorses associated subjective fever, chills, diaphoresis. He has had coffee ground emesis as well. He denies hematochezia or melena, vision changes, lightheadedness, dysuria, or diarrhea. He does have a chronic cough productive of clear sputum, as well as, chronic constipation. He has had similar symptoms previously. Vital signs in the ER: Temperature 36.4. Pulse 111. Respiratory rate 21. Blood pressure 194/86. Pulse ox 97% on room air. He received Protonix 40 mg IV 1, NS 1 L 1, Zofran 8 mg 1, and hydromorphone 1 mg IV 1. No PCP. . Hospital Course Orville Kaplan is a 61-year-old male with a past medical history significant for gastroparesis, diabetes mellitus, non-insulin using, and end-stage renal disease on HD 3 times a week presented to [facility] emergency department complaining of intractable nausea and vomiting x 1 day. acute dx Acute intractable nausea and vomiting, likely due to ulcerative esophagitis and gastroparesis with uncontrolled DM, EGD 11/12 showed ulcerative esophagitis, likely due to underlying GERD. multiple biopsies were taken and in progress, no pathognomic findings for viral/fungal/cancerous lesions found in EGD per Leticia. Patient was given PPI bid iv, switched to oral, nausea and vomiting controlled with zofran, Phenergan. Patient tolerated diet without sx. Patient was asked to follow up with Dr.Alagugurusamy for biopsy result. continue PPI bid, also suggested to take Reglan and zofran premeal to prevent symptoms. Acute leukocytosis, present on admission. Active. initially suspected aspiration pneumonia, pt was given Zosyn for 2days. however, given no high suspicion of PNA, no respiratory sx, good oxygenation, zosyn was stopped. Hyponatremia likely GI fluid loss,, resolved with IVF 500 mL bolus chronic dx ESRD on HD, chronic.Stable. continue HD as scheduled Friday Diabetes mellitus type II, non-insulin using, chronic. Stable. Hemoglobin A1c7.0, controlled with -Lantus 10 units daily at bedtime, low dose correctional insulin. Hypertension, chronic. started on labetalol 200 mg 3 times a day Hyperlipidemia, stable diet controlled, LDL80s Anemia, chronic. Stable. Secondary to anemia of chronic disease from chronic renal failure. Exam Vital Signs (Last) Date Time Temp Pulse Resp B/P Pulse Ox O2 Delivery O2 Flow Rate FiO2 11/14/16 08:00 73 11/14/16 07:56 36.9 12 135/63 97 Room Air Exam NAD, comfortably laying down on the bed no JVD, MMM, no LAD RRR, nl s1, s2 no mrg CTAB, no w,c S,ND,NT,normoactive BS+ warm, no edema, pulses 2/2 Test 11/10/16 00:43 11/10/16 06:20 11/11/16 20:03 11/13/16 08:05 Prothrombin Time 10.6sec (8.1-12.5) Prothromb Time International Ratio 0.99ratio Lipase 35U/L (13-60) Hemoglobin A1c 7.0% (4.8-5.6) Lactic Acid Level 2.0mmol/L (0.4-2.0) Iron Level 34ug/dL (35-150) Total Iron Binding Capacity 165ug/dL (250-450) Percent Iron Saturation 21%sat (15-50) Unsaturated Iron Binding 130.6ug/dL Ferritin 810ng/mL (30-400) Triglycerides Level 144mg/dL (0-149) Cholesterol Level 153mg/dL (100-199) LDL Cholesterol, Calculated 80.200mg/dL (0-99) VLDL Cholesterol 28.800mg/dL HDL Cholesterol 44mg/dL (>39) Cholesterol/HDL Ratio 3.48 (0.0-4.4) Test 11/14/16 05:18 White Blood Count 7.3th/mm3 (3.8-10.1) Red Blood Count 2.62mil/mm3 (4.40-5.80) Hemoglobin 8.1g/dL (13.8-17.2) Hematocrit 24.8% (41.0-50.0) Mean Corpuscular Volume 94.7fL (81-100) Mean Corpuscular Hemoglobin 30.9pg (27.0-35.0) Mean Corpuscular Hemoglobin Concent 32.7% (32.0-37.0) Red Cell Distribution Width 14.4% (12.3-15.4) Platelet Count 247bil/L (150-400) Neutrophils (%) (Auto) 67.8% (40-74) Lymphocytes (%) (Auto) 16.3% (14-46) Monocytes (%) (Auto) 14.0% (4-12) Eosinophils (%) (Auto) 1.1% (0-5) Basophils (%) (Auto) 0.3% (0-3) Sodium Level 137mEq/L (134-144) Potassium Level 4.7mEq/L (3.5-5.2) Chloride Level 97mEq/L (97-108) Carbon Dioxide Level 25mmol/L (18-29) Blood Urea Nitrogen 40mg/dL (8-27) Creatinine 4.06mg/dL (0.76-1.27) Estimat Glomerular Filtration Rate 16mL/min (>59) Glucose Level 142mg/dL (60-99) Calcium Level 7.9mg/dL (8.5-10.1) Phosphorus Level 3.1mg/dL (2.5-4.9) Magnesium Level 1.8mg/dL (1.6-2.6) Total Bilirubin 0.3mg/dL (0.0-1.2) Aspartate Amino Transf (AST/SGOT) 14U/L (0-50) Alanine Aminotransferase (ALT/SGPT) 7U/L (0-44) Alkaline Phosphatase 84U/L (25-160) Total Protein 5.2g/dL (6.4-8.4) Albumin 3.0g/dL (3.4-5.0) Procalcitonin 0.36ng/mL (0.00-0.08) Discharge Medications Discharge Medications Labetalol (Labetalol) 200 Mg Tablet 200 MG PO TID Prescribed by: BRINA RAMOS MD Pantoprazole DR (Protonix) 40 Mg Tablet 40 MG PO BID Prescribed by: BRINA RAMOS MD Vit B Cmplx 3/FA/Vit C/Biotin (Starla-Triston Rx Tablet) 1 Each Tablet 1 TABLET PO DAILY (Reported) As needed Calcium Carbonate (Tums) 500 Mg Tab.chew 1,000 MG PO PRN PRN PRN For Indigestion (Reported) Hydromorphone (Hydromorphone) 2 Mg Tablet 2 MG PO Q4H PRN PRN Pain (Reported) Metoclopramide (Metoclopramide) 10 Mg Tablet 10 MG PO ACHS PRN PRN For Nausea/ Vomiting Prescribed by: BRINA RAMOS MD Ondansetron (Zofran) 8 Mg Tablet 8 MG PO Q4H PRN PRN For Nausea (Reported) Additional med instructions you can take zofran, Reglan 30minute prior to meals to prevent nausea, vomiting as needed Please continue to take Protonix 40mg twice a day Please note that Labetalol 200mg three times added to your blood pressure regimen. Please continue it. Followup Plan Disposition: home Discharge Diet: Renal Diet, Other (please eat small and frequent amount of food ) Discharge Activity: No restrictions Patient Instructions You were hospitalized with intractable nausea, vomiting, found to have ulcer in you esophagus, it's likely that esophagus ulcer was contributing to your symptoms, as well as your diabetes and gastroparesis, Please note that you need follow up on biopsy result with or , Please follow up medicine instruction, dialysis as scheduled Follow-up Provider: Benny Hitchcock MD Follow-up with PCP in: 1 week Time spent 65min Brina Ramos MD November 14, 2016 14:55
--- NOTE | 2016-11-15 10:00 | PATH ---
SURGICAL PATHOLOGY Attending Physician:Donavon Lopez CASE STATUS: Signed Out PATIENT NAME: ELYSSA VILLA PID: [id number] : 1955 DATE COLLECTED:11/12/2016 00:00 SPECIMEN: Esophagus, Biopsy CLINICAL HISTORY: 1. DISTAL ESOPHAGUS FINAL DIAGNOSIS: 1.DISTAL ESOPHAGUS BIOPSY: ESOPHAGEAL SQUAMOUS MUCOSA WITH ACTIVE ESOPHAGITIS AND ULCERATION. NEGATIVE FOR FUNGAL ORGANISMS BY GMS STAIN. Negative for intestinal metaplasia. Negative for dysplasia and malignancy. Eosinophils are not increased. ICD10 code K20.9 GROSS DESCRIPTION: The specimen is received in one formalin filled container labeled with the patient's name, sublabeled "distal esophagus" and consists of 2 portions of tissue which aggregate to 0.3 x 0.3 x 0.2 CM. The specimen is entirely submitted in one cassette. 11/13/2016 DAC MICRO DESCRIPTION: A GMS stain was performed to assess for fungal organisms and is negative. The control stain shows appropriate reactivity. ICD-9 CODES: CPT CODES: 1: 01990, 50124 Electronically Signed Out Jessica Hatfield MD [facility] [address], [place] [address] Technical component performed at [facility], [address] [place] [address] Ave[address], [place], [address]
== END 2016-11-14 12:22 | disposition home or self-care (01) | DRG 380 ==
LOC: SED 23:23 → OBSVTOIN 11-10 03:31 → MPC 11-10 03:31 → MOC 11-11 15:27
PROVIDERS: ADMIT Internal Medicine; ATTEND Internal Medicine
PROC: 5A1D60Z (ICD-10-PCS; 2016-11-11)
PROC: 0DB38ZX Excision of Lower Esophagus, Via Natural or Artificial Opening Endoscopic, Diagnostic (ICD-10-PCS; principal; 2016-11-12 15:30)
DX: K22.10 Ulcer of esophagus without bleeding (principal); N18.6 End stage renal disease; E87.1 Hypo-osmolality and hyponatremia; I13.11 Hypertensive heart and chronic kidney disease without heart failure, with stage 5 chronic kidney disease, or end stage renal disease; F11.20 Opioid dependence, uncomplicated; K92.0 Hematemesis; E21.1 Secondary hyperparathyroidism, not elsewhere classified; E11.43 Type 2 diabetes mellitus with diabetic autonomic (poly)neuropathy; K31.84 Gastroparesis; E11.65 Type 2 diabetes mellitus with hyperglycemia; Z99.2 Dependence on renal dialysis; E78.5 Hyperlipidemia, unspecified; D63.1 Anemia in chronic kidney disease; K21.9 Gastro-esophageal reflux disease without esophagitis; Z87.891 Personal history of nicotine dependence

== ENCOUNTER 2016-11-16 19:03 | Inpatient (IN) | payer MEDICARE, OTHER ==
[~2016-11-16] VITALS: Ht 185.4 cm; Wt 86.8 kg
[~2016-11-16 19:03] MED LIST changes: +LABE200T PO; +METO10TA3 PO; +PANT40TA2 PO
[2016-11-16 19:08] VITALS: BP 127/63; PULSE 116; RESP 20; O2SAT 98
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
[2016-11-16] MEDS ORDERED: Ondansetron 2 mg/mL 2 mL Inj IVPUSH ONE (19:35)
[2016-11-16] MEDS ORDERED: 0.9% Sodium Chloride 1,000 ML IV ONE (19:35)
[2016-11-16] MEDS ORDERED: Pantoprazole Inj 80 MG, Pharmacy To Mix 1 EA in 0.9% Sodium Chloride 80 ML IV ONE ×2 (19:35)
[2016-11-16] MEDS ORDERED: Pantoprazole 4 mg/mL 10 mL Inj IVPUSH ONE (19:35)
[2016-11-16 20:09] LABS: BASOPHILS % (AUTO) 0.2 % (0-3); EOSINOPHILS % (AUTO) 0.3 % (0-5); MONOCYTES % (AUTO) 7.6 % (4-12); Mean Corpuscular Hemoglobin 30.6 pg (27.0-35.0); Mean Corpuscular Volume 94.9 fL (81-100); NEUTROPHILS % (AUTO) 87.4 % (40-74); Platelet Count 300 bil/L (150-400)
[2016-11-16 20:27] LABS: INR 0.96 ratio
[2016-11-16 20:40] VITALS: BP 155/66; PULSE 105; RESP 23; O2SAT 100
[2016-11-16] MEDS ORDERED: HYDROmorphone 1 mg/mL Inj IVPUSH ONE (21:00)
[2016-11-16] MEDS ORDERED: PEG/Electrolytes 4,000 mL Solution PO ONE (22:05)
[2016-11-16 22:10] VITALS: BP 158/67; PULSE 93; RESP 12; O2SAT 96
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
[2016-11-16] MEDS ORDERED: MetoCLOpramide 5 mg/mL 2 mL Inj IVPUSH PRN (23:20)
[2016-11-16 23:30] VITALS: BP 177/72; PULSE 83; RESP 18; O2SAT 100
[2016-11-16] MEDS: HYDROmorphone 1 mg/mL Inj IVPUSH PRN (23:58)
[2016-11-17] VITALS (9 sets, daily range): BP systolic 137–204; BP diastolic 57–88; PULSE 66–88; RESP 18–20; O2SAT 96–100
[2016-11-17] MEDS ORDERED: Glucose 40% Oral Gel 15 Gm Tube PO PRN (00:20)
[2016-11-17] MEDS: Ondansetron 2 mg/mL 2 mL Inj IVPUSH PRN ×5 (02:55→22:27)
[2016-11-17] MEDS: Insulin LISPRO 300 Unit/3 mL Inj SUBQ SCH ×4 (07:57→22:00)
[2016-11-17] MEDS: HYDROmorphone 1 mg/mL Inj IVPUSH PRN ×4 (08:34→22:28)
[2016-11-17 09:55] LABS: BASOPHILS % (AUTO) 0.3 % (0-3); EOSINOPHILS % (AUTO) 1.7 % (0-5); MONOCYTES % (AUTO) 9.5 % (4-12); Mean Corpuscular Hemoglobin 30.5 pg (27.0-35.0); Mean Corpuscular Volume 95.6 fL (81-100); NEUTROPHILS % (AUTO) 82.1 % (40-74); Platelet Count 283 bil/L (150-400)
--- NOTE | 2016-11-17 10:18 | PCM.PNMED ---
Subjective Date of Service November 17, 2016 Subjective pt denied having nausea, vomiting overnight, denied vomiting blood seen by at the bedside together, looks comfortable, haven't decided whether to do colonoscopy or not Exam Vital Signs Vital Sign - Last Date Time Temp Pulse Resp B/P Pulse Ox O2 Delivery O2 Flow Rate FiO2 11/17/16 09:07 36.7 77 18 158/57 97 Room Air Intake and Output 11/16/16 11/16/16 11/17/16 Cumulative From/Thru 15:00 23:00 07:00 11/16/16 19:08 - 11/17/16 06:10 Intake Total 80 ml 80 ml Output Total 0 ml 0 ml Balance 80 ml 80 ml Intake Oral 0 ml 0 ml IV Total 80 ml 80 ml Output Urine Total 0 ml 0 ml # Voids 0 0 # Bowel Movements 0 0 Exam NAD, comfortably laying down on the bed no JVD, MMM, no LAD RRR, nl s1, s2 no mrg CTAB, no w,c S,ND,diffuse tederness,normoactive BS+ warm, no edema, pulses 2/2 IVs and Medications Medications Reviewed: Medications were reviewed in detail Lab and Diagnostics Result Diagram: 11/17/16 0930 11/16/162043 X-Rays, CTs and MRIs CT ABDOMEN AND PELVIS WITHOUT CONTRAST ([id number]) IMPRESSION: 1. Moderate gastric distention, possibly indicating gastric outlet obstruction. 2. No pneumoperitoneum. 3. Normal appendix. 4. Small hiatal hernia. 5. Slight increase in size of low-density focus within the right hepatic lobe, which could be further assessed with nonemergent ultrasound, if clinically indicated. Dictated by: Georgi Gottlieb M.D. on 11/11/2016 at 20:22 Additional Diagnostics Esophagogastroduodenoscopy IMPRESSION: LA class D ulcerative esophagitis. Barb Kelly MD 11/12/16 0482 Assessment & Plan Pt is a 61 y/o male w/ a hx of ulcerative esophagitis on EGD 2 days prior, Juana-Griffith tears, gastroparesis, ESRD on hemodialysis (MWF), CAD, NIDDM, HTN , hyperlipidemia, presenting to the [facility] ED with mild streaked hematemesis, black tarry diarrhea, abdominal pain, lightheadedness, which began 1 day prior. acute, active #presumed GIB, POA, upper with known esophagitis, lower with new source given melena. EGD on 11/12 showed LA class D ulcerative esophagitis -HD stable, h/h mildly trending down, but at baseline -continue PPI gtt for now -appreciate GI for further intervention. -if pt agrees for PEG, will start bowel prep this evening, possible C-scope tomorrow -monitor stools closely, #intractable nausea, vomiting, POA, this is recurrent problems due to know gastroparesis, non-compliance -will do reglan 5mg tid standing, zofran iv prn for now, eventually switch to oral reglan with prior to meals based on GI recs #Acute leukocytosis with new diarrhea, POA, WBC 14.7 is up from discharge two days prior WBC 7.3, Likely secondary to stress response versus infectious process. SIRS positive with Leukocytosis 14.7k, tachycardia 116 -trends fever curve, PCT, wbc, pt remained afebrile w/o abx -awaits stool PCR, prior to colonoscopy, high risks for c.diff given recent abx exposure #mild hyponatremia, POA, likely GI fluid loss, monitor for now chronic, stable 5. ESRD on HD, chronic. Stable. - Patient due for next HD on Friday. - Monitor renal function and electrolytes daily. - Nephrology consulted for possible dialysis in the future 6 Diabetes mellitus type II, non-insulin using, chronic. Stable. - Hemoglobin A1c 7.0 on 11/10/2016. - Ordered low dose correctional insulin. - diet clears overnight with concomitant GoLYTELY until 6 AM, nothing by mouth after that for GI procedure 7 Hypertension, chronic. Stable. - Ordered PRN labetalol 20 mg IV for SBP >160. 8 Hyperlipidemia, chronic. stable. - Not medically treated. 9 GERD, chronic. Stable. - Protonix drip as above dispo: likely 1-2more days, trends h/h possible GI w/u, please coordinate with GI for discharge. Of note, pt had concern for refilling his protonix, reglan, so didn't refill it after d/c from last hospitalization. appreciate SW input regarding cost issues. dvt ppx: SCD Full code GI Prophylaxis: Proton Pump Inhibitor VTE Prophylaxis: SCDs VTE Mechanical Devices: Intermittant Pneumatic CD Resuscitation Status: CPR: Attempt Resuscitation Time spent 35 minutes Brina Sol MD November 17, 2016 10:10
[2016-11-17] MEDS: MetoCLOpramide 5 mg/mL 2 mL Inj IVPUSH PRN ×2 (11:39→18:27)
--- NOTE | 2016-11-17 14:25 | PCM.PNMED ---
Subjective Date of Service November 17, 2016 Subjective patient seen again after initial consultation interview this morning with Dr Sol Mr Kaplan reports no bleeding since vomiting up small streak of blood around midnight. He has not had a bowel movement since 12 noon yesterday. Exam Vital Signs Vital Sign - Last Date Time Temp Pulse Resp B/P Pulse Ox O2 Delivery O2 Flow Rate FiO2 11/17/16 09:07 36.7 77 18 158/57 97 Room Air Intake and Output 11/16/16 11/16/16 11/17/16 Cumulative From/Thru 15:00 23:00 07:00 11/16/16 19:08 - 11/17/16 06:10 Intake Total 80 ml 80 ml Output Total 0 ml 0 ml Balance 80 ml 80 ml Intake Oral 0 ml 0 ml IV Total 80 ml 80 ml Output Urine Total 0 ml 0 ml # Voids 0 0 # Bowel Movements 0 0 Exam Gen- sleeping upon arrival to room, easily arousable, apprpritae answers to questions HEENT- mild pallor Resp- clear CVS-RRR abdomen- soft, non tender, bowel sounds present Lab and Diagnostics Result Diagram: 11/17/16 0930 11/17/16 0930 X-Rays, CTs and MRIs CT ABDOMEN AND PELVIS WITHOUT CONTRAST ([id number]) IMPRESSION: 1. Moderate gastric distention, possibly indicating gastric outlet obstruction. 2. No pneumoperitoneum. 3. Normal appendix. 4. Small hiatal hernia. 5. Slight increase in size of low-density focus within the right hepatic lobe, which could be further assessed with nonemergent ultrasound, if clinically indicated. Dictated by: Georgi Gottlieb M.D. on 11/11/2016 at 20:22 Additional Diagnostics Esophagogastroduodenoscopy IMPRESSION: LA class D ulcerative esophagitis. Barb Kelly MD 11/12/16 9416 Assessment & Plan Possible upper GI bleed -AM H/H down a bit -recommend following H/H Q8, transfuse PRBC as needed -type and cross and have 2 units on hold -2 peripheral IV -continue protonix drip -prep for colonoscopy starting later today -he decide not to prep yesterday as he was concerned about his fluid status and that he might get fluid overloaded with colon prep -plan for EGD and possible colonoscopy tomorrow with anesthesia as he takes chronic pain medications. Gastroparesis -recommend scheduled metoclopramide Anemia -stable -check iron studies -suspect multifactorial, GI bleed, ESRD, frequent blood draws ESRD -per Nephrology team GI Prophylaxis: Proton Pump Inhibitor VTE Prophylaxis: SCDs VTE Mechanical Devices: Intermittant Pneumatic CD Resuscitation Status: CPR: Attempt Resuscitation Barb Kelly MD November 17, 2016 14:25
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
[2016-11-17] MEDS: Labetalol 5 mg/mL 4 mL Inj IVPUSH PRN (15:10)
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
[2016-11-17] MEDS ORDERED: PEG/Electrolytes 4,000 mL Solution PO ONE (17:00)
[2016-11-17] MEDS: Pantoprazole 8 mg/Hr Infusion IV SCH ×2 (22:38)
[2016-11-18] VITALS (11 sets, daily range): BP systolic 104–197; BP diastolic 48–93; PULSE 71–96; RESP 16–18; O2SAT 94–100
[2016-11-18] MEDS: Labetalol 5 mg/mL 4 mL Inj IVPUSH PRN (00:06)
[2016-11-18] MEDS: Ondansetron 2 mg/mL 2 mL Inj IVPUSH PRN ×6 (04:19→22:46)
[2016-11-18] MEDS: HYDROmorphone 1 mg/mL Inj IVPUSH PRN ×5 (04:20→22:49)
[2016-11-18 06:24] LABS: Magnesium 2.1 mg/dL (1.6-2.6); Phosphorus 5.7 mg/dL (2.5-4.9)
[2016-11-18 06:37] LABS: Mean Corpuscular Hemoglobin 31.5 pg (27.0-35.0); Mean Corpuscular Volume 95.8 fL (81-100); NEUTROPHILS % (AUTO) 75.6 % (40-74); Platelet Count 315 bil/L (150-400)
[2016-11-18 06:41] LABS: BASOPHILS % (AUTO) 0.4 % (0-3); EOSINOPHILS % (AUTO) 2.6 % (0-5); MONOCYTES % (AUTO) 10.1 % (4-12)
[2016-11-18] MEDS: Pantoprazole 8 mg/Hr Infusion IV SCH ×4 (07:30→18:01)
[2016-11-18] MEDS: Insulin LISPRO 300 Unit/3 mL Inj SUBQ SCH ×4 (07:45→22:00)
[2016-11-18] MEDS ORDERED: fentaNYL-PF 50 mCg/mL 2 mL Inj ONE (07:46)
[2016-11-18] MEDS ORDERED: Propofol 10,000 mCg/mL 20 mL Inj ONE (07:46)
--- NOTE | 2016-11-18 10:29 | PCM.PNNEPH ---
Subjective Date of Service November 18, 2016 Subjective The patient still has some ongoing nausea and vomiting but states he feels a bit better today. His oral intake has been somewhat limited because of this. Otherwise he denies any headache, chest pain, or shortness of breath. Swallowing his sodium is 133, potassium 4.6, chloride 92, bicarbonate 25, BUN/ creatinine were 55 and 7.32 respectively. Exam Vital Signs Vital Sign - Last Date Time Temp Pulse Resp B/P Pulse Ox O2 Delivery O2 Flow Rate FiO2 11/18/16 09:10 72 11/18/16 06:15 36.8 18 135/67 94 Room Air Intake and Output 11/17/16 11/17/16 11/18/16 Cumulative From/Thru 15:00 23:00 07:00 11/16/16 19:08 - 11/18/16 06:41 Intake Total 200 ml 455 ml 735 ml Output Total 0 ml 25 ml 25 ml Balance 200 ml 430 ml 710 ml Intake Oral 200 ml 400 ml 600 ml IV Total 55 ml 135 ml Output Urine Total 0 ml 25 ml 25 ml # Voids 0 # Bowel Movements 0 Exam Lungs are clear to auscultation. Heart is regular and rhythmical with a soft systolic murmur. Abdomen is soft without any tenderness or rebound guarding masses or hepatosplenomegaly. Extremities do not show any evidence of any clubbing, cyanosis, or edema. Skin turgor is good. Lab and Diagnostics Result Diagram: 11/18/16 0532 11/18/16 0532 X-Rays, CTs and MRIs CT ABDOMEN AND PELVIS WITHOUT CONTRAST ([id number]) IMPRESSION: 1. Moderate gastric distention, possibly indicating gastric outlet obstruction. 2. No pneumoperitoneum. 3. Normal appendix. 4. Small hiatal hernia. 5. Slight increase in size of low-density focus within the right hepatic lobe, which could be further assessed with nonemergent ultrasound, if clinically indicated. Dictated by: Georgi Gottlieb M.D. on 11/11/2016 at 20:22 Additional Diagnostics Esophagogastroduodenoscopy IMPRESSION: LA class D ulcerative esophagitis. Barb Kelly MD 11/12/16 1835 Plan Impression Impression #1 end-stage renal disease dialysis dependent number to diabetic nephropathy #3 severe diabetic gastroparesis with recurrent vomiting which appears to be stable number for hypertension with hypertensive heart disease and hypertensive nephrosclerosis. Recommendation #1 patient to be dialyzed today for 4 hours on a Steve Trina max dialyzer. He will also be dialyzed on a 3 potassium bath standard heparin and try to take 2-3 L of fluid off. Dewayne Lynn DO November 18, 2016 10:29
[2016-11-18] MEDS: MetoCLOpramide 5 mg/mL 2 mL Inj IVPUSH PRN (11:33)
[2016-11-18] MEDS ORDERED: Lactated Ringer's 1,000 ML IV ONE (12:26)
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
[2016-11-18] MEDS ORDERED: Lactated Ringer's 1,000 ML IV SCH (15:12)
[2016-11-18] MEDS ORDERED: MetoCLOpramide 5 mg/mL 2 mL Inj IVPUSH PRN (15:15)
[2016-11-18] MEDS ORDERED: 0.9% Sodium Chloride 1,000 ML IV ONE (15:15)
--- NOTE | 2016-11-18 15:58 | PCM.ANEP1 ---
Post Anesthesia PACU Phase 1 Assessment Vital Signs Vital Signs Date Time Temp Pulse Resp B/P Pulse Ox O2 Delivery O2 Flow Rate FiO2 11/18/16 15:29 77 16 121/52 100 Room Air 11/18/16 15:19 36.8 78 16 104/48 98 Room Air 11/18/16 13:55 36.6 71 16 158/75 98 Room Air 11/18/16 09:10 72 11/18/16 08:56 75 Anesthetic Administered: GA Level of Alertness: Awake, talking MURRAY's with Equal Strength: Yes Pain: Yes (tolerable) Pain Scale Score: 5 Nausea or Vomiting: No CV Function and Hydration: Yes Airway Device: Oxygen Delivery: Room Air Lungs: Normal Air Movement PACU Phase 2 Assessment Complications: No Follow up Care: No Patient Instructions Provided: N/A Dashawn Garcia MD November 18, 2016 15:58
--- NOTE | 2016-11-18 19:59 | PCM.PNMED ---
Subjective Date of Service November 18, 2016 Subjective Patient was gone for dialysis and EGD for the better part of the day. His back and tells me he wants to go home tomorrow. He is hungry we are feeding him a full liquid diet. He has had no further episodes of hematemesis. He has had no nausea vomiting no chest pain, no dyspnea. Exam Vital Signs Vital Sign - Last Date Time Temp Pulse Resp B/P Pulse Ox O2 Delivery O2 Flow Rate FiO2 11/18/16 16:09 36.8 80 18 160/66 99 Room Air Intake and Output 11/17/16 11/17/16 11/18/16 Cumulative From/Thru 15:00 23:00 07:00 11/16/16 19:08 - 11/18/16 06:41 Intake Total 200 ml 455 ml 735 ml Output Total 0 ml 25 ml 25 ml Balance 200 ml 430 ml 710 ml Intake Oral 200 ml 400 ml 600 ml IV Total 55 ml 135 ml Output Urine Total 0 ml 25 ml 25 ml # Voids 0 # Bowel Movements 0 Exam Gen.- A+ O 3 no apparent distress. Eyes- open conjunctiva clear, pupils equal nonicteric ENT- ears normal, nose normal, hearing intact Neck- supple/trach midline CVS-normal rate Lungs-regular nonlabored GI-generous pannus Musc- moving 4 no obvious deformity Neuro- cranial nerves II through XII intact to gross examination, nonfocal Skin- warm and dry, no rashes/lesions/wounds noted Psych- pleasant and appropriate, Lab and Diagnostics Result Diagram: 11/18/16 0532 11/18/16 0532 X-Rays, CTs and MRIs CT ABDOMEN AND PELVIS WITHOUT CONTRAST ([id number]) IMPRESSION: 1. Moderate gastric distention, possibly indicating gastric outlet obstruction. 2. No pneumoperitoneum. 3. Normal appendix. 4. Small hiatal hernia. 5. Slight increase in size of low-density focus within the right hepatic lobe, which could be further assessed with nonemergent ultrasound, if clinically indicated. Dictated by: Georgi Gottlieb M.D. on 11/11/2016 at 20:22 Additional Diagnostics Esophagogastroduodenoscopy IMPRESSION: LA class D ulcerative esophagitis. Barb Kelly MD 11/12/16 7063 Assessment & Plan 61-year-old male with a history of bleeding issues and end-stage renal disease admitted 11/16 for workup of hemoptysis. 11/18 I am meeting this medically complex patient for the first time. We will find out GI recommendations discussed with nephrology patient wants to go home and I am pretty sure he will be able to go home 11/19. Possible upper GI bleed -H/H stable patient had endoscopy today 11/18 was told he could go home tomorrow from GI perspective. GI findings/recommendations are pending. -I have discontinued his PPI drip, and apparently GI has given him a full liquid diet. Gastroparesis- cont metoclopramide Anemia- suspect multifactorial, GI bleed, ESRD, ESRD- dialysis as per Nephrology team GI Prophylaxis: Proton Pump Inhibitor VTE Prophylaxis: SCDs VTE Mechanical Devices: Intermittant Pneumatic CD Resuscitation Status: CPR: Attempt Resuscitation Ricardo Bernal MD November 18, 2016 19:59 -per Nephrology team GI Prophylaxis: Proton Pump Inhibitor VTE Prophylaxis: SCDs VTE Mechanical Devices: Intermittant Pneumatic CD Resuscitation Status: CPR: Attempt Resuscitation Ricardo Bernal MD November 18, 2016 19:59
--- NOTE | 2016-11-18 22:19 | ENDO ---
[address] [address] ENDOSCOPY PROCEDURE PATIENT: ELYSSA VILLA : 1955 MR#: [id number] ADMIT: 11/16/2016 JOB ID: [id number] DATE OF PROCEDURE: PROCEDURE: Esophagogastroduodenoscopy. INDICATION: Hematemesis. SEDATION: Patient's ASA classification, Mallampati score and medications as per Dr. Dashawn Garcia' anesthesia report. INSTRUMENT USED: [id number]. PROCEDURE INFORMATION: After informed consent was obtained, the patient was brought into the GI suite, where he was placed on oxygen via nasal cannula and monitored with continuous pulse oximeter, telemetry, and blood pressure monitoring. A time-out was performed. Then, he was placed in the left lateral decubitus position and medications were administered for sedation. A bite block was placed. The standard EGD scope was then inserted through the bite block and advanced under direct visualization to second portion of duodenum without difficulty. FINDINGS: 1. Normal appearing second and first portion of duodenum. In the duodenal bulb there were findings suggestive of Gerda's gland hyperplasia. 2. Normal appearing pylorus, antrum and gastric body. 3. Retroflexed views in the gastric body revealed a normal appearing cardia and fundus. 4. No old or fresh blood was seen on exam from the stomach to the duodenum. A single biopsy was obtained for H. pylori. 5. In the distal esophagus there was ulceration and friable mucosa consistent with LA class D ulcerative esophagitis. This extended to approximately 5 cm proximally. Proximal to that, the mucosa appeared otherwise unremarkable. IMPRESSION: LA class B ulcerative esophagitis. RECOMMENDATIONS: 1. Change PPI to p.o. b.i.d. daily. 2. Consider scheduled Reglan 10 mg 30 minutes before meals and at bedtime. 3. Small frequent meals. If melena should continue and there should be a drop in H and H we may need to consider colonoscopy to further evaluate. COMPLICATIONS: None. ESTIMATED BLOOD LOSS: Less than 5 mL.
[2016-11-19 00:49] VITALS: BP 142/73; PULSE 89; RESP 18; O2SAT 100
[2016-11-19] MEDS: Ondansetron 2 mg/mL 2 mL Inj IVPUSH PRN ×2 (03:09→08:56)
[2016-11-19] MEDS: HYDROmorphone 1 mg/mL Inj IVPUSH PRN (03:09)
[2016-11-19 05:07] VITALS: BP 149/68; PULSE 89; RESP 18; O2SAT 97
[2016-11-19 06:09] LABS: BASOPHILS % (AUTO) 0.4 % (0-3); MONOCYTES % (AUTO) 13.8 % (4-12); Mean Corpuscular Hemoglobin 31.2 pg (27.0-35.0); Mean Corpuscular Volume 96.2 fL (81-100); NEUTROPHILS % (AUTO) 73.4 % (40-74); Platelet Count 318 bil/L (150-400)
[2016-11-19] MEDS ORDERED: Pantoprazole 40 mg ER24 Tablet PO SCH (07:30)
[2016-11-19] MEDS: Insulin LISPRO 300 Unit/3 mL Inj SUBQ SCH (07:57)
[2016-11-19 10:48] VITALS: PULSE 87
--- NOTE | 2016-11-19 10:48 | PCM.PNNEPH ---
Subjective Date of Service November 19, 2016 Subjective The patient is considerably better today. He has much less nausea, vomiting, or pyrosis. He is tolerating his meals and states he feels comfortable going home today. Exam Vital Signs Vital Sign - Last Date Time Temp Pulse Resp B/P Pulse Ox O2 Delivery O2 Flow Rate FiO2 11/19/16 05:07 36.9 89 18 149/68 97 Room Air Intake and Output 11/18/16 11/18/16 11/19/16 Cumulative From/Thru 15:00 23:00 07:00 11/16/16 19:08 - 11/19/16 05:36 Intake Total 500 ml 200 ml 1435 ml Output Total 2700 ml 20 ml 175 ml 2920 ml Balance -2700 ml 480 ml 25 ml -1485 ml Intake Oral 400 ml 200 ml 1200 ml IV Total 100 ml 235 ml Output Urine Total 20 ml 175 ml 220 ml Ultrafiltrate 2700 ml 2700 ml # Voids 0 # Bowel Movements 0 0 Exam Neck is supple without adenopathy, thyromegaly, or jugular venous distention. Lungs are clear to auscultation. Heart is regular and rhythmical with a soft systolic murmur. Abdomen is soft without any tenderness rebound guarding masses or hepatosplenomegaly. She evidence of any clubbing cyanosis or edema. Lab and Diagnostics Result Diagram: 11/19/1652211/19/16522 X-Rays, CTs and MRIs CT ABDOMEN AND PELVIS WITHOUT CONTRAST ([id number]) IMPRESSION: 1. Moderate gastric distention, possibly indicating gastric outlet obstruction. 2. No pneumoperitoneum. 3. Normal appendix. 4. Small hiatal hernia. 5. Slight increase in size of low-density focus within the right hepatic lobe, which could be further assessed with nonemergent ultrasound, if clinically indicated. Dictated by: Georgi Gottlieb M.D. on 11/11/2016 at 20:22 Additional Diagnostics Esophagogastroduodenoscopy IMPRESSION: LA class D ulcerative esophagitis. Barb Kelly MD 11/12/16 7767 Plan Impression Impression #1 end-stage renal disease dialysis dependent number to diabetic nephropathy #3 hypertension with hypertensive heart disease and hypertensive nephrosclerosis #5 gastroparesis and peptic ulcer disease. Recommendations #1 she can be discharged today and he is scheduled for his routine dialysis at the dialysis center tomorrow. Dewayne Lynn DO November 19, 2016 10:48
--- NOTE | 2016-11-19 10:53 | PCM.DIMED ---
Discharge Instructions Date of Service November 19, 2016 Dates of Hospitalization November 16, 2016 at 21:58 Discharge Diagnosis Discharge Diagnosis Gastroparesis, GERD, esophagitis Diet Discharge Diet: Heart Healthy, Diabetic, Renal Diet Activity Discharge Activity: No restrictions Call your provider Call your provider for: Fever or Chills, Other (or throwing up blood or black stools) Patient Instructions Patient Instructions Try Reglan/metoclopramide. Stop taking it if you have motion abnormalities or if he finds that it is not decreasing need for Zofran/ondansetron. Contact multifocal button generator if you start further coughing up of blood or black stools. 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
[2016-11-19] MEDS ORDERED: PANT40TA3 PO (10:56)
[2016-11-19] MEDS ORDERED: ONDA4TAB12 PO (10:56)
[2016-11-19] MEDS ORDERED: METO10TA3 PO (10:56)
[2016-11-19 11:20] VITALS: BP 182/77; RESP 18; O2SAT 100
--- NOTE | 2016-11-19 12:13 | PCM.PNMED ---
Subjective Date of Service November 19, 2016 Subjective GI progress note History patient went for EGD with normal gastric and duodenal examination and biopsy taken; however there was a LA class D ulcerative esophagitis. This morning patient states that he has no chest pain, difficulty swallowing, abdominal pain, nausea/vomiting, hematochezia/melena, or dizziness. Patient was tolerating a renal diet well so far. He wishes to go home. Denies all other review of systems. Exam Vital Signs Vital Sign - Last Date Time Temp Pulse Resp B/P Pulse Ox O2 Delivery O2 Flow Rate FiO2 11/19/16 11:20 18 182/77 100 Room Air 11/19/16 10:48 87 11/19/16 05:07 36.9 Intake and Output 11/18/16 11/18/16 11/19/16 Cumulative From/Thru 15:00 23:00 07:00 11/16/16 19:08 - 11/19/16 05:36 Intake Total 500 ml 200 ml 1435 ml Output Total 2700 ml 20 ml 175 ml 2920 ml Balance -2700 ml 480 ml 25 ml -1485 ml Intake Oral 400 ml 200 ml 1200 ml IV Total 100 ml 235 ml Output Urine Total 20 ml 175 ml 220 ml Ultrafiltrate 2700 ml 2700 ml # Voids 0 # Bowel Movements 0 0 Exam Gen.: No acute distress, awake and alert HEENT: Mucous membranes moist, neck supple, very mild pallor Cardiac: Regular rate and rhythm Respiratory: CTA bilaterally Abdomen: Soft, nontender, nondistended, positive bowel sounds Extremities: Left foot has chronic skin changes from what appears to be a prior injury IVs and Medications Medications Reviewed: Medications were reviewed in detail Lab and Diagnostics Result Diagram: 11/19/16 0523 11/19/1623 X-Rays, CTs and MRIs CT ABDOMEN AND PELVIS WITHOUT CONTRAST ([id number]) IMPRESSION: 1. Moderate gastric distention, possibly indicating gastric outlet obstruction. 2. No pneumoperitoneum. 3. Normal appendix. 4. Small hiatal hernia. 5. Slight increase in size of low-density focus within the right hepatic lobe, which could be further assessed with nonemergent ultrasound, if clinically indicated. Dictated by: Georgi Gottlieb M.D. on 11/11/2016 at 20:22 Additional Diagnostics Esophagogastroduodenoscopy IMPRESSION: LA class D ulcerative esophagitis. Barb Kelly MD 11/12/16 0851 Assessment & Plan Possible upper GI bleed -EGD did not identify obvious area of bleeding and no old/new blood was identified. -H&H stable and improved since admission 2 days ago. -The patient again has not acute blood loss recommend that he undergo colonoscopy; patient was unable/refused to drink the prep during this stay -Advance diet as slow and as tolerated Gastroparesis - Scheduled Metoclopramide 10mg PO QID (W/ meals and HS) Anemia- suspect multifactorial, GI bleed, ESRD -Iron studies showed low iron and TIBC with normal saturation; ferritin high but likely representing acute stress -B12 is normal GI Prophylaxis: Proton Pump Inhibitor VTE Prophylaxis: SCDs VTE Mechanical Devices: Intermittant Pneumatic CD Resuscitation Status: CPR: Attempt Resuscitation Attending Statement pt seen and examined agree with Dr Clarke's note Orville Kitchen DO November 19, 2016 12:13 Barb Kelly MD Dec 03, 2016 15:01
--- NOTE | 2016-11-19 17:11 | PCM.DC.MED ---
Discharge Summary Date of Service November 19, 2016 Dates of Hospitalization Date of Hospital Admission November 16, 2016 at 21:58 Date of Discharge: November 19, 2016 Providers: Admitting Physician: Tam Ortega MD Primary Care Physician: Nopcp Attending Physician: Tam Ortega MD Diagnosis at Time of Discharge Diagnosis at Time of Discharge Gastroparesis, GERD, esophagitis Consultations GI, [place] Procedures XRay, CTs & MRIs CT ABDOMEN AND PELVIS WITHOUT CONTRAST ([id number]) IMPRESSION: 1. Moderate gastric distention, possibly indicating gastric outlet obstruction. 2. No pneumoperitoneum. 3. Normal appendix. 4. Small hiatal hernia. 5. Slight increase in size of low-density focus within the right hepatic lobe, which could be further assessed with nonemergent ultrasound, if clinically indicated. Dictated by: Georgi Gottlieb M.D. on 11/11/2016 at 20:22 Other Diagnostics Esophagogastroduodenoscopy IMPRESSION: LA class D ulcerative esophagitis. Barb Kelly MD 11/12/16 2048 Brief History Pt is a 61 y/o male w/ a hx of ulcerative esophagitis, Juana-Griffith tears, diabetic gastroparesis, ESRD on hemodialysis (MWF), CAD, NIDDM, HTN, hyperlipidemia, presenting to the ED with hematemesis described as mild blood streaked. He was also experiencing 5 bouts of black tarry diarrhea, abdominal pain, lightheadedness, which began 1 day prior. The patient denies any fever or chills any cough shortness of breath or chest pain. He recently injured his left toe however that this was simply the day prior and he does not believe that is infected. The patient states that his left arm is typically significantly larger than the right and denies any worsening swelling or redness in the left arm. The patient does not believe he has an infection. The patient was able to make his Friday dialysis appointment however he was 6 kg over his dry body weight and felt fairly poorly after his dialysis treatment giving the significant requirement for removal of excess fluid. The patient states that his had one bout of dark tarry stools several years ago and a follow -up colonoscopy showed polyps. Hospital Course 61-year-old male with a history of bleeding issues and end-stage renal disease admitted 11/16 for workup of hemoptysis. 11/18 I am meeting this medically complex patient for the first time. We will find out GI recommendations discussed with nephrology patient wants to go home and I am pretty sure he will be able to go home 11/19. 11/19 no further events benign endoscopy, patient medically stable discharging home. Possible upper GI bleed -H/H stable patient had endoscopydone 11/19 see above for results/recommendations -I have discontinued his PPI drip, and apparently GI has given him a full liquid diet. -Patient advanced to full diet, PPI twice a day with Reglan added Gastroparesis- cont metoclopramide Anemia- multifactorial, GI bleed, ESRD, ESRD- dialysis as per Nephrology team Exam Vital Signs (Last) Date Time Temp Pulse Resp B/P Pulse Ox O2 Delivery O2 Flow Rate FiO2 11/19/16 11:20 18 182/77 100 Room Air 11/19/16 10:48 87 11/19/16 05:07 36.9 Test 11/16/16 19:54 11/16/16 20:44 11/16/16 23:35 11/18/16 05:32 Prothrombin Time 10.3sec (8.1-12.5) Prothromb Time International Ratio 0.96ratio Hold Quintana Top Tube Received (Received) Procalcitonin 0.34ng/mL (0.00-0.08) Lactic Acid Level 1.1mmol/L (0.4-2.0) Phosphorus Level 5.7mg/dL (2.5-4.9) Magnesium Level 2.1mg/dL (1.6-2.6) Total Bilirubin 0.4mg/dL (0.0-1.2) Aspartate Amino Transf (AST/SGOT) 15U/L (0-50) Alanine Aminotransferase (ALT/SGPT) 8U/L (0-44) Alkaline Phosphatase 94U/L (25-160) Total Protein 5.6g/dL (6.4-8.4) Albumin 3.4g/dL (3.4-5.0) Test 11/19/16 05:23 White Blood Count 7.4th/mm3 (3.8-10.1) Red Blood Count 2.92mil/mm3 (4.40-5.80) Hemoglobin 9.1g/dL (13.8-17.2) Hematocrit 28.1% (41.0-50.0) Mean Corpuscular Volume 96.2fL (81-100) Mean Corpuscular Hemoglobin 31.2pg (27.0-35.0) Mean Corpuscular Hemoglobin Concent 32.4% (32.0-37.0) Red Cell Distribution Width 15.1% (12.3-15.4) Platelet Count 318bil/L (150-400) Neutrophils (%) (Auto) 73.4% (40-74) Lymphocytes (%) (Auto) 9.9% (14-46) Monocytes (%) (Auto) 13.8% (4-12) Eosinophils (%) (Auto) 2.0% (0-5) Basophils (%) (Auto) 0.4% (0-3) Sodium Level 134mEq/L (134-144) Potassium Level 4.5mEq/L (3.5-5.2) Chloride Level 94mEq/L (97-108) Carbon Dioxide Level 26mmol/L (18-29) Blood Urea Nitrogen 29mg/dL (8-27) Creatinine 5.09mg/dL (0.76-1.27) Estimat Glomerular Filtration Rate 12mL/min (>59) Glucose Level 150mg/dL (60-99) Calcium Level 8.3mg/dL (8.5-10.1) Discharge Medications Discharge Medications Pantoprazole DR (Pantoprazole DR) 40 Mg Tablet.dr 40 MG PO BIDAC Prescribed by: JUSTIN BERNAL MD As needed Calcium Carbonate (Tums) 500 Mg Tab.chew 1,000 MG PO PRN PRN PRN For Indigestion (Reported) Hydromorphone (Hydromorphone) 2 Mg Tablet 2 MG PO Q4H PRN PRN Pain (Reported) Metoclopramide (Metoclopramide) 10 Mg Tablet 10 MG PO ACHS PRN PRN For Nausea Prescribed by: JUSTIN BERNAL MD Ondansetron ODT (Ondansetron ODT) 4 Mg Tab.rapdis 4 MG PO q4 PRN PRN For Nausea Prescribed by: JUSTIN BERNAL MD Followup Plan Disposition: To home Follow-up plan Patient declines PCP, he will follow up in nephrology/dialysis thrice weekly and GI call for appointment in 2-4 weeks to follow-up on pathology. Discharge Diet: Heart Healthy, Diabetic, Renal Diet Discharge Activity: No restrictions Patient Instructions Try Reglan/metoclopramide. Stop taking it if you have motion abnormalities or if he finds that it is not decreasing need for Zofran/ondansetron. Contact mail processing clerk if you start further coughing up of blood or black stools. 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
[2016-11-19] MEDS ORDERED: OLANZapine Zydis ODT 5 mg Tablet PO SCH (20:30)
== END 2016-11-19 12:28 | disposition home or self-care (01) | DRG 380 ==
LOC: SED 19:03 → OSC 21:58
PROVIDERS: ADMIT Hospitalist; ATTEND Hospitalist
PROC: 5A1D00Z (ICD-10-PCS; 2016-11-18)
PROC: 0DB68ZX Excision of Stomach, Via Natural or Artificial Opening Endoscopic, Diagnostic (ICD-10-PCS; principal; 2016-11-18 15:00)
DX: K22.11 Ulcer of esophagus with bleeding (principal); N18.6 End stage renal disease; I12.0 Hypertensive chronic kidney disease with stage 5 chronic kidney disease or end stage renal disease; E87.1 Hypo-osmolality and hyponatremia; K92.1 Melena; Z99.2 Dependence on renal dialysis; E11.43 Type 2 diabetes mellitus with diabetic autonomic (poly)neuropathy; K31.84 Gastroparesis; D64.9 Anemia, unspecified; Z87.891 Personal history of nicotine dependence; Z86.010 Personal history of colon polyps; Z89.429 Acquired absence of other toe(s), unspecified side; R11.2 Nausea with vomiting, unspecified; R19.7 Diarrhea, unspecified; E11.21 Type 2 diabetes mellitus with diabetic nephropathy

== ENCOUNTER 2016-12-31 14:32 | Inpatient (IN) | payer MEDICARE, OTHER ==
[~2016-12-31] VITALS: Ht 185.4 cm; Wt 86.7 kg
[2016-12-31] VITALS (13 sets, daily range): BP systolic 164–218; BP diastolic 63–111; PULSE 95–124; RESP 11–22; O2SAT 96–100
[~2016-12-31 14:32] MED LIST changes: -LABE200T PO; +ONDA4TAB12 PO; -PANT40TA2 PO; +PANT40TA3 PO; -VIT1TABL57 PO; -ZOF8 PO
[2016-12-31] MEDS ORDERED: 0.9% Sodium Chloride 1,000 ML IV ONE (15:03)
[2016-12-31] MEDS ORDERED: Pantoprazole Inj 80 MG, Pharmacy To Mix 1 EA in 0.9% Sodium Chloride 80 ML IV ONE ×2 (15:05)
[2016-12-31] MEDS ORDERED: Pantoprazole 4 mg/mL 10 mL Inj IVPUSH ONE (15:05)
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
[2016-12-31] MEDS ORDERED: HYDROmorphone 1 mg/mL Inj IVPUSH ONE ×3 (15:15→20:43)
[2016-12-31 15:19] LABS: BASOPHILS % (AUTO) 0.1 % (0-3); EOSINOPHILS % (AUTO) 0.1 % (0-5); MONOCYTES % (AUTO) 2.3 % (4-12); Mean Corpuscular Hemoglobin 30.5 pg (27.0-35.0); Mean Corpuscular Volume 92.7 fL (81-100); NEUTROPHILS % (AUTO) 95.6 % (40-74); Platelet Count 354 bil/L (150-400)
[2016-12-31 15:35] LABS: INR 0.97 ratio
[2016-12-31] MEDS: Ondansetron 2 mg/mL 2 mL Inj IVPUSH PRN ×2 (15:37→17:01)
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
[2016-12-31] MEDS ORDERED: Polyethylene Glycol (PEG) 17 Gm Powder PO PRN (17:50)
[2016-12-31] MEDS ORDERED: Alum-Mag Hydrox-Simeth 30 mL Suspension PO PRN (17:50)
[2016-12-31] MEDS ORDERED: Pantoprazole Inj 80 MG in 0.9% Sodium Chloride 100 ML IV ONE (17:50)
[2016-12-31] MEDS ORDERED: EPHEDrine/NS 5 mg/mL 5 mL Syringe ONE (18:12)
[2016-12-31] MEDS ORDERED: Succinylcholine Chloride 20 mg/mL 5 mL Inj ONE (18:12)
[2016-12-31] MEDS ORDERED: Propofol 10,000 mCg/mL 20 mL Inj ONE (18:12)
[2016-12-31] MEDS ORDERED: Labetalol 5 mg/mL 20 mL Inj IV ONE (18:30)
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
[2016-12-31] MEDS ORDERED: Lactated Ringer's 1,000 ML IV ONE (19:53)
[2016-12-31] MEDS ORDERED: Lactated Ringer's 500 ML IV PRN (20:03)
[2016-12-31] MEDS ORDERED: 0.9% Sodium Chloride 500 ML IV SCH (20:03)
[2016-12-31] MEDS ORDERED: fentaNYL-PF 50 mCg/mL 2 mL Inj IVPUSH PRN (20:05)
[2016-12-31] MEDS ORDERED: Atropine 0.4 mg/mL Inj IVPUSH PRN (20:05)
[2016-12-31] MEDS ORDERED: HYDROmorphone 1 mg/mL Inj IVPUSH PRN (20:05)
[2016-12-31] MEDS ORDERED: Phenylephrine 10,000 mCg/mL Inj IVPUSH PRN (20:05)
[2016-12-31] MEDS ORDERED: Ondansetron 2 mg/mL 2 mL Inj IVPUSH PRN (20:05)
[2016-12-31] MEDS ORDERED: Labetalol 5 mg/mL 4 mL Inj IV PRN (20:05)
[2016-12-31] MEDS ORDERED: EPHEDrine Sulfate 50 mg/mL Inj IVPUSH PRN (20:05)
[2016-12-31] MEDS ORDERED: Dexamethasone 4 mg/mL Inj IVPUSH PRN ×2 (20:05→20:35)
[2016-12-31] MEDS ORDERED: hydrALAZINE 20 mg/mL Inj IVPUSH PRN (20:05)
--- NOTE | 2016-12-31 20:06 | PCM.ENDEGD ---
EGD Date of Service: Dec 31, 2016 Physician Erich Barron MD Presedation Assessment Risks and Benefits Informed consent was obtained from the patient after all risks and benefits including but not limited to drug reaction, infection, pain, bleeding, perforation, as well as alternatives were discussed. Patient monitoring Continuous pulse oximetry, cardiac monitoring, blood pressure monitoring, IV access, and oxygen at 2L per nasal cannula. Complications There were no periprocedural complications identified. Post Procedure Plan Post Procedure Recommendations 1. Restrict activities today. 2. Resume normal activities in the morning. 3. Resume medications. 4. GERD behavioral modification: - Avoid fatty, acidic, spicy, large meals - Do not lie down after meals - Do not eat or drink anything for at least 2 1/2 hours before going to bed at night - Discontinue tobacco and alcohol - Decrease or avoid caffeine - Avoid chocolate and mints - Decrease weight - Avoid aspirin and non steroidal anti-inflammatory agents (NSAID) such as Aleve, Advil, Mobic, Naproxen, Ibuprofen, etc 5. Add proton pump inhibitor. Take 30 minutes before 1st meal of the day. 6. Patient informed of normal post procedure side effects as bloating, drowsiness, blood streaking in the stool 7. If gastric biopsy reveal H.pylori, continue with appropriate treatment 8. If small bowel biopsy reveals celiac, continue with appropriate treatment 9. Please don't hesitate to call me with any questions Erich Barron MD Dec 31, 2016 20:06 3. Resume medications. 4. GERD behavioral modification: - Avoid fatty, acidic, spicy, large meals - Do not lie down after meals - Do not eat or drink anything for at least 2 1/2 hours before going to bed at night - Discontinue tobacco and alcohol - Decrease or avoid caffeine - Avoid chocolate and mints - Decrease weight - Avoid aspirin and non steroidal anti-inflammatory agents (NSAID) such as Aleve, Advil, Mobic, Naproxen, Ibuprofen, etc 5. Add proton pump inhibitor. Take 30 minutes before 1st meal of the day. 6. Patient informed of normal post procedure side effects as bloating, drowsiness, blood streaking in the stool 7. If gastric biopsy reveal H.pylori, continue with appropriate treatment 8. If small bowel biopsy reveals celiac, continue with appropriate treatment 9. Please don't hesitate to call me with any questions Erich Barron MD Dec 31, 2016 20:06
--- NOTE | 2016-12-31 20:09 | PCM.ENDEGD ---
EGD Date of Service: Dec 31, 2016 Physician Erich Barron MD Pre Procedure Diagnosis: Hematemesis Post Procedure Dx & Findings: 2 cm ulcer in the GE junction with a stable clot Procedure Esophagogastroduodenoscopy PROCEDURE IN DETAIL: After proper sedation, Olympus video endoscope was inserted into patient's mouth and esophagus was successfully intubated. Scope introduced esophagus. Esophagus showed normal shiny whitish mucosa consistent with squamous cell component. At the Z line, there was an irregularity with the edema and redness consistent with esophagitis and there was a large ulcer which was about 2 cm. In the center of the crater ulcer, there was a stable blood clot. We pressure was still clot to dislodge it but it did not dislodge. I used the scope to dislodge the clot and it was unsuccessful. Patient did have some blood small in amount on the fundus which was all suctioned. No fresh heme was noted. I was planning on using a snare to dislodge the clot. However, this was not done because I spoke to the surgeon on-call and she informed me that she would not be better to transfer the patient if complications arise due to the location of the ulcer and multiple medical issues. Therefore I injected around the clot using epinephrine. I injected total of 3 mL around the clot. Good blanching noted. Scope further advanced to the stomach. Stomach showed normal shiny mucosa with normal appearing rugae folds without any ulcer mass erosion. Cardia fundus body antrum pylorus were all visualized. Retroflexion was done. Stomach was easily inflated and deflatable using air. Scope further events to the distal duodenum. Duodenum revealed normal villous structures with normal appearing folds without any mass ulcer erosion. Impression 2 cm creating ulcer at the GE junction with stable clot. Epinephrine injection. Unable to dislodge the clot with washing. Recommendation Continue IV Protonix drip Strict nothing by mouth Maximized anti-nausea vomiting protocol with Zofran and Compazine. Presedation Assessment Risks and Benefits Informed consent was obtained from the patient after all risks and benefits including but not limited to drug reaction, infection, pain, bleeding, perforation, as well as alternatives were discussed. Patient monitoring Continuous pulse oximetry, cardiac monitoring, blood pressure monitoring, IV access, and oxygen at 2L per nasal cannula. Complications There were no periprocedural complications identified. Post Procedure Plan Post Procedure Recommendations 1. Restrict activities today. 2. Resume normal activities in the morning. 3. Resume medications. 4. GERD behavioral modification: - Avoid fatty, acidic, spicy, large meals - Do not lie down after meals - Do not eat or drink anything for at least 2 1/2 hours before going to bed at night - Discontinue tobacco and alcohol - Decrease or avoid caffeine - Avoid chocolate and mints - Decrease weight - Avoid aspirin and non steroidal anti-inflammatory agents (NSAID) such as Aleve, Advil, Mobic, Naproxen, Ibuprofen, etc 5. Add proton pump inhibitor. Take 30 minutes before 1st meal of the day. 6. Patient informed of normal post procedure side effects as bloating, drowsiness, blood streaking in the stool 7. If gastric biopsy reveal H.pylori, continue with appropriate treatment 8. If small bowel biopsy reveals celiac, continue with appropriate treatment 9. Please don't hesitate to call me with any questions Erich Barron MD Dec 31, 2016 20:09
--- NOTE | 2016-12-31 20:24 | PCM.ANEP1 ---
Post Anesthesia PACU Phase 1 Assessment Vital Signs Vital Signs Date Time Temp Pulse Resp B/P Pulse Ox O2 Delivery O2 Flow Rate FiO2 12/31/16 20:20 105 22 202/85 100 Simple Mask 10 12/31/16 20:15 106 22 164/63 100 Simple Mask 10 12/31/16 20:11 36.4 183/65 12/31/16 18:51 111 20 218/102 98 Room Air 12/31/16 18:32 122 12/31/16 18:22 111 14 209/111 96 Nasal Cannula 2 12/31/16 16:07 95 15 206/80 96 Nasal Cannula 2 12/31/16 14:35 37.0 118 20 187/101 100 Anesthetic Administered: GA Level of Alertness: Awake, talking MURRAY's with Equal Strength: Yes Pain: No Nausea or Vomiting: No CV Function & Hydration Stable: Yes Airway Device: Oxygen Delivery: Simple Mask Lungs: Clear to Auscultation, Clear to Percussion PACU Phase 2 Assessment Complications: No Follow up Care: No Patient Instructions Provided: N/A Konstantin Gallardo MD Dec 31, 2016 20:24
[2016-12-31] MEDS ORDERED: Ondansetron 2 mg/mL 2 mL Inj IVPUSH ONE (20:44)
[2016-12-31] MEDS: Ondansetron 2 mg/mL 2 mL Inj IVPUSH SCH (21:19)
[2016-12-31] MEDS: NiCARdipine Inj 25 MG in Dextrose 5% 240 ML IV SCH (21:19)
[2016-12-31] MEDS: Promethazine Inj 25 MG in 0.9% Sodium Chloride 50 ML IV SCH (21:20)
[2016-12-31] MEDS ORDERED: Labetalol 5 mg/mL 4 mL Inj IVPUSH ONE (22:55)
[2017-01-01] MEDS: Promethazine Inj 25 MG in 0.9% Sodium Chloride 50 ML IV SCH ×6 (00:30→20:30)
[2017-01-01] MEDS: Pantoprazole Inj 80 MG in 0.9% Sodium Chloride 80 ML IV SCH ×3 (00:49→17:01)
[2017-01-01] MEDS: NiCARdipine Inj 25 MG in Dextrose 5% 240 ML IV SCH ×5 (00:49→19:35)
[2017-01-01] MEDS: Ondansetron 2 mg/mL 2 mL Inj IVPUSH SCH ×3 (02:20→21:54)
[2017-01-01] MEDS: HYDROmorphone 1 mg/mL Inj IVPUSH PRN ×4 (02:20→21:54)
[2017-01-01 03:11] VITALS: BP 140/53; PULSE 73; RESP 18; O2SAT 100
[2017-01-01] MEDS ORDERED: EPINEPHrine 0.1 mg/mL 10 mL Syringe ONE (05:19)
--- NOTE | 2017-01-01 06:32 | NUR ---
Admission to CCU Pt originally admitted to [facility], was in the room for approximately 5 minutes and then was taken to the Endoscopy Lab for an upper endoscopy. Pt extremely hypertensive upon return from endoscopy, obtunded, and was admitted to CCU for a nicardipine gtt. Drip started and remained on lowest setting for approximately 2 hours with goal of 170 systolic. After that time, the drip was stopped, pt given Labetalol 10mg IVP and saline locked. Pt continues to receive Dilaudid 1mg IVP and Phenergan 25mg IVPB scheduled for nausea and pain. Towards the end of the shift the patient expressed thanks to this RN for appropriately managing his pain. Pt states relief of his nausea and pain. Per MD order he remains strict NPO. Protonix gtt at 10 infusing into right foot. External Jugular IV Saline lock on right neck. Pt's dialysis graft on right upper extremity has good thrill and bruit. Pt has nonfunctioning fistula and graft on his right upper arm.
[2017-01-01 07:10] LABS: BASOPHILS % (AUTO) 0.1 % (0-3); EOSINOPHILS % (AUTO) 0 % (0-5); MONOCYTES % (AUTO) 6.2 % (4-12); Mean Corpuscular Hemoglobin 30.7 pg (27.0-35.0); Mean Corpuscular Volume 92.6 fL (81-100); NEUTROPHILS % (AUTO) 90.3 % (40-74); Platelet Count 339 bil/L (150-400)
[2017-01-01 07:14] VITALS: BP 123/61; PULSE 75; RESP 14; O2SAT 100
[2017-01-01] MEDS ORDERED: ONDA8TAB7 PO (07:24)
[2017-01-01 08:23] LABS: Magnesium 2.1 mg/dL (1.6-2.6); Phosphorus 5.3 mg/dL (2.5-4.9)
--- NOTE | 2017-01-01 09:48 | PCM.PNMED ---
Subjective Date of Service Jan 01, 2017 Subjective Patient denies any abdominal pain and no further hematemesis. Exam Vital Signs Vital Sign - Last Date Time Temp Pulse Resp B/P Pulse Ox O2 Delivery O2 Flow Rate FiO2 01/01/17 07:14 36.6 75 14 123/61 100 Nasal Cannula 4.00 Intake and Output 12/31/16 12/31/16 01/01/17 Cumulative From/Thru 15:00 23:00 07:00 12/31/16 14:35 - 01/01/17 05:46 Intake Total 1600 ml 855 ml 2455 ml Output Total 0 ml 0 ml Balance 1600 ml 855 ml 2455 ml Intake Oral 0 ml 0 ml IV Total 1600 ml 855 ml 2455 ml Output Urine Total 0 ml 0 ml # Bowel Movements 0 0 Exam Patient is alert oriented comfortable Head and neck no icterus Lungs clear Cardiovascular regular rate and rhythm normal S1-S2 Abdomen soft nontender nondistended with normoactive bowel sounds Skin shows no jaundice No pitting edema ankles. Lab and Diagnostics Result Diagram: 01/01/1762801/01/17628 Assessment & Plan Mr. Orville Kaplan is a pleasant 61 year old gentleman with past medical history of end-stage renal disease, gastroparesis, Juana-Griffith tear, esophageal ulceration who presented to the hospital with a complaint of vomiting blood. The patient reported that he had two episode of hematemesis this morning. Initially, the vomitus was non-bloody and a change to coffee ground emesis of roughly "200 cc's" . While in the emergency room, he had an episode of another hematemesis. Also right before the endoscopy he had another episode of hematemesis yesterday. Then he was intubated and the EGD was done. EGD showed deep cratered ulcer with a stable clot. Epinephrine injection was done and clot was attempted to be dislodged with aggressive fluid wash. Clot appeared stable. Since last night, has been on IV PPI and nothing by mouth. He has not had any more hematemesis or melena. Acute Upper Gastro-Intestinal bleed, present on admission. Active. Continue IV Protonix 8 mg per hour until Friday then switch him to Protonix 40 mg twice a day by mouth. Carafate 10 mL 4 times a day to Friday. Clear liquid diet till Friday. Then advanced as tolerated to soft foods. Resuscitation Status: CPR: Attempt Resuscitation Erich Barron MD Jan 01, 2017 09:48
[2017-01-01 10:22] VITALS: PULSE 76
[2017-01-01] MEDS ORDERED: 0.9% Sodium Chloride 100 ML ONE (11:18)
[2017-01-01] MEDS: Sucralfate 100 mg/mL 10 mL Suspension PO SCH ×3 (11:30→21:53)
--- NOTE | 2017-01-01 12:24 | PCM.PNNEPH ---
Subjective Date of Service Jan 01, 2017 Subjective s/p ED cm ulcers at the GE junction with stable clot. Epinephrine injection. N/V has stopped since 2 am. He is comfortable. Await HD. Exam Vital Signs Vital Sign - Last Date Time Temp Pulse Resp B/P Pulse Ox O2 Delivery O2 Flow Rate FiO2 01/01/17 10:22 76 01/01/17 07:14 36.6 14 123/61 100 Nasal Cannula 4.00 Intake and Output 12/31/16 12/31/16 01/01/17 Cumulative From/Thru 15:00 23:00 07:00 12/31/16 14:35 - 01/01/17 05:46 Intake Total 1600 ml 855 ml 2455 ml Output Total 0 ml 0 ml Balance 1600 ml 855 ml 2455 ml Intake Oral 0 ml 0 ml IV Total 1600 ml 855 ml 2455 ml Output Urine Total 0 ml 0 ml # Bowel Movements 0 0 Exam General appearance: Awake, alert, oriented x3. Mild distress. Nauseated. HEENT: Mild pallor. No jaundice. No JVD. No lymphadenopathy. No thyroid enlargement. Moist mucous membranes. PERRLA, atraumatic. Heart: Regular rhythm. Normal S1, S2. No murmurs, rubs, or gallops. Lungs: Clear to auscultation bilaterally. Positive for superficial vein dilatation on the left upper chest. Abdomen: Soft, NT, ND. Active bowel sounds. No hepatosplenomegaly. Extremity: No lower extremity edema. Positive for swelling on the left upper extremity. AV fistula with good thrill and bruit. Lab and Diagnostics Result Diagram: 01/01/1762801/01/17628 Plan Impression 1. Hematemesis h/o severe ulcerative esophagitis, Juana-Griffith tear, and gastroparesis. s/p ED cm ulcers at the GE junction with stable clot. Epinephrine injection. 2. End-stage renal disease, on hemodialysis every Friday, Friday, and Friday. 3. Anemia of chronic kidney disease. 4. Renal osteodystrophy. 5. Hypertension with hypertensive nephrosclerosis. 6. Chronic left arm swelling secondary to complete occlusion of left brachiocephalic vein. 7. Marijuana abuse. Plan: HD today without heparin, follow GI rec. Isabella Pepper MD Jan 01, 2017 12:24
--- NOTE | 2017-01-01 13:04 | NUR ---
Patient to [facility] for hemodialysis at 1100. PCC status.
--- NOTE | 2017-01-01 15:16 | NUR ---
Dialysis note 3.5 hr HD tx 1000ml net UF removed No Heparin Citrasate plus continuous NS infusion used to keep system clear 2 15 g needles to CAMPBELL graft QB 450 See DTR for complete vitals trends Pt requested Dilaudid X1 for general discomfort with good relief Sureseals/clamps X15 mins post tx Report given and pt returned to floor stable.
[2017-01-01 16:42] VITALS: BP 154/61; PULSE 74; RESP 16; O2SAT 96
--- NOTE | 2017-01-01 17:59 | NUR ---
Doing well post-hemodialysis; denies pain or nausea at this time, in better spirits this evening. No signs or bleeding, no stools or emesis.
--- NOTE | 2017-01-01 19:24 | PCM.PNMED ---
Subjective Date of Service Jan 01, 2017 Subjective Mr. Orville Kaplan is a pleasant 61 year old gentleman with past medical history of end-stage renal disease, gastroparesis, Juana-Griffith tear, esophageal ulceration who presented to the hospital with a complaint of vomiting blood. He was found to have an ulcer on endscopy which was treated with epinephrine.is being treated for acute upper gastrointestinal bleed, with endoscopy done by GI found to have a 2 cm ulcer and treated with epinephrine. Today, patient is doing much better after hemodialysis. He mentions he's not having any nausea, vomiting, constipation, diarrhea, abdominal, chest pain or shortness of breath. He has not had a bowel movement since he's been here and has poor urine output due to end stage renal disease. Exam Vital Signs Vital Sign - Last Date Time Temp Pulse Resp B/P Pulse Ox O2 Delivery O2 Flow Rate FiO2 01/01/17 16:42 36.4 74 16 154/61 96 Room Air 01/01/17 07:14 4.00 Intake and Output 12/31/16 12/31/16 01/01/17 Cumulative From/Thru 15:00 23:00 07:00 12/31/16 14:35 - 01/01/17 05:46 Intake Total 1600 ml 855 ml 2455 ml Output Total 0 ml 0 ml Balance 1600 ml 855 ml 2455 ml Intake Oral 0 ml 0 ml IV Total 1600 ml 855 ml 2455 ml Output Urine Total 0 ml 0 ml # Bowel Movements 0 0 Exam General: Resting in bed comfortable in no acute distress, well-developed, well- nourished, appropriately interactive HEENT: Normocephalic, atraumatic. External ears without defect. Pupils equal, round, and reactive to light and accommodation. Anicteric sclerae, . Cardiovascular: tachycardic rate and rhythm with no murmurs, rubs, or gallops appreciated Pulmonary: Clear to auscultation bilaterally with no crackles, wheezes, or rhonchi. Normal respiratory effort with no use of accessory muscles. Abdomen: Bowel tones present. Soft, nontender, nondistended. No hepatosplenomegaly or masses appreciated. Extremities: Left upper extremity edema, Lower extremity chronic venous stasis, 3 amputated toes on left foot. Skin: Normal temperature, turgor, and texture; no rash, ulcers, or subcutaneous nodules appreciated. Neurological: Cranial nerves grossly intact. Normal muscle strength, decreased tone and bulk in lower extremity. Psychiatric: Normal mood and affect. Alert and oriented to person, place, and time. Lab and Diagnostics Item Value Date Time White Blood Count 14.9 th/mm3 H 12/31/16 1500 White Blood Count 14.9 th/mm3 H 01/01/17 0629 Hemoglobin 12.1 g/dL L 12/31/16 1500 Hematocrit 36.8 % L 12/31/16 1500 Hemoglobin 10.0 g/dL L 01/01/17 0629 Hematocrit 30.2 % L 01/01/17 0629 Sodium Level 134 mEq/L 01/01/17 0629 Sodium Level 130 mEq/L L 12/31/16 1500 Potassium Level 4.8 mEq/L 12/31/16 1500 Potassium Level 5.3 mEq/L H 01/01/17 0629 Chloride Level 86 mEq/L L 12/31/16 1500 Chloride Level 91 mEq/L L 01/01/17 06 Creatinine 5.87 mg/dL *H 12/31/16 1500 Creatinine 7.25 mg/dL *H 01/01/17 0629 Blood Urea Nitrogen 38 mg/dL H 12/31/16 1500 Blood Urea Nitrogen 46 mg/dL H 01/01/17 0629 Glucose Level 243 mg/dL H 12/31/16 1500 Glucose Level 200 mg/dL H 01/01/1729 Aspartate Amino Transf (AST/SGOT) 18 U/L 12/31/16 1500 Alkaline Phosphatase 131 U/L 12/31/16 1500 Alanine Aminotransferase (ALT/SGPT) 11 U/L 12/31/16 1500 Aspartate Amino Transf (AST/SGOT) 13 U/L 01/01/17 0629 Alanine Aminotransferase (ALT/SGPT) 8 U/L 01/01/1729 Alkaline Phosphatase 103 U/L 01/01/17628 Result Diagram: 01/01/1762801/01/17628 Microbiology Microbiology 12/31/16 MRSA (PCR) - Final, Complete negative Additional Diagnostics Procedure Esophagogastroduodenoscopy Impression 2 cm creating ulcer at the GE junction with stable clot. Epinephrine injection. Unable to dislodge the clot with washing. Assessment & Plan Mr. Orville Kaplan is a pleasant 61 year old gentleman with past medical history of end-stage renal disease, gastroparesis, Juana-Griffith tear, esophageal ulceration who presented to the hospital with a complaint of vomiting blood. He was found to have an ulcer on endscopy which was treated with epinephrine.is being treated for acute upper gastrointestinal bleed, with endoscopy scheduled for the morning. Acute Upper Gastro-Intestinal bleed, present on admission. Active. Was found to have 2 cm ulcer at the GE junction with a stable clot, treated with epinephrine. Continue IV Protonix 8 mg per hour until Friday then switch him to Protonix 40 mg twice a day by mouth. Carafate 10 mL 4 times a day to Friday. Clear liquid diet till Friday morning. Then advanced as tolerated to soft foods. GI following, recommendations. End-stage Renal Disease, present on admission. Active. - Nephrology following, recommendations. - Hemodialysis done 01/01/17 - Monitor kidney function Acute Hypertensive Urgency, present on admission. Resolved - IV Labetolol 10 given. - Nicardipine ggt used to correct BP - Monitor Vitals Acetaminophen for mild pain when necessary. Bowel regimen Senna and MiraLAX scheduled and PRN. Zofran when necessary for nausea and vomiting. SubQ heparin held for now. SCDs in place. High-risk medications: IV Dilaudid PRN pain. Pain Evaluation: Adequate Pain Control Resuscitation Status: CPR: Attempt Resuscitation Attending Statement The patient was seen and examined together with Dr. Parrish on 01/01/2017 and I agree with the history, exam and plan as outlined in the note above. . Tam Parrish DO Jan 01, 2017 19:24 Steve Garcia MD Jan 02, 2017 17:46 IV Dilaudid PRN pain. Resuscitation Status: CPR: Attempt Resuscitation Tam Parrish DO Jan 01, 2017 19:24
[2017-01-01 21:00] VITALS: BP 178/77; PULSE 83; RESP 22; O2SAT 97
[2017-01-01 23:23] VITALS: BP 131/64; PULSE 42; PULSE 72; RESP 16; O2SAT 95
[2017-01-02] VITALS (9 sets, daily range): BP systolic 143–170; BP diastolic 69–78; PULSE 75–96; RESP 7–20; O2SAT 95–98
[2017-01-02] MEDS: HYDROmorphone 1 mg/mL Inj IVPUSH PRN ×5 (00:05→21:58)
[2017-01-02] MEDS: Promethazine Inj 25 MG in 0.9% Sodium Chloride 50 ML IV SCH ×7 (00:05→23:52)
[2017-01-02] MEDS: NiCARdipine Inj 25 MG in Dextrose 5% 240 ML IV SCH ×6 (00:06→23:52)
[2017-01-02] MEDS: Ondansetron 2 mg/mL 2 mL Inj IVPUSH SCH ×3 (02:45→17:26)
[2017-01-02] MEDS: Pantoprazole Inj 80 MG in 0.9% Sodium Chloride 80 ML IV SCH ×3 (04:09→18:17)
--- NOTE | 2017-01-02 04:24 | NUR ---
P) GI Bleed Pt. alert and oriented, c/o mild nausea, no vomiting, pain well controlled with dilaudid though he would like the zofran q4h with the dilaudid. No signs of continued bleeding, no stool. BP high, max was 178/77 tonight after room change, pt. refused phenergan and nicardipine as they are not compatible with protonix and he adamantly refuses another IV, states he would be willing to take a PO or IV push medication for BP. I) Consulted Dr. Marquez, as next BP was lower we will continue to monitor. E) Resting quietly, did get up and ambulate some in room, did well.
[2017-01-02 08:13] LABS: BASOPHILS % (AUTO) 0.5 % (0-3); EOSINOPHILS % (AUTO) 1.6 % (0-5); MONOCYTES % (AUTO) 10.3 % (4-12); Mean Corpuscular Hemoglobin 31.2 pg (27.0-35.0); Mean Corpuscular Volume 95.5 fL (81-100); NEUTROPHILS % (AUTO) 77.3 % (40-74); Platelet Count 286 bil/L (150-400)
[2017-01-02 08:34] LABS: Phosphorus 4.5 mg/dL (2.5-4.9)
--- NOTE | 2017-01-02 09:35 | NUR ---
Social Work: Initial Assessment Data: Pt is a 61 y/o male admitted for upper GI bleed. Pt's PCP is Dr Hitchcock, pt's insurance is Medicare with [facility]. EMR reviewed. Readmit score is 5. UTILIZATION REVIEW RN met with pt at bedside, role explained. Pt states that he lives in [place] with his son and his son's fiance in a two story home where he uses no DME. Pt drives, has no hx of HH or SNF, no LTC or VA benefits, and is not a caregiver. Pt states he has been up and independent in the room. Pt reports his son will transport him home. UTILIZATION REVIEW RN will continue to follow. Assessment: Pt who is independent at baseline. Plan: Pt will d/c home via POV with son when medically stable. No d/c planning needs identified at this time. UTILIZATION REVIEW RN will continue to follow. MARCOS Watt Addendum: 01/02/17 at 0938 by TERESA DAY Amended: Links added.
--- NOTE | 2017-01-02 11:42 | NUR ---
Wound Note Pressure injury protocol order received, pt interviewed at bedside, he reports no skin issues at this time, nursing concurs. Ambulating in hallways at this time, independent with bed mobility.
--- NOTE | 2017-01-02 11:45 | PCM.PNNEPH ---
Subjective Date of Service Jan 02, 2017 Subjective HD yesterday without complication. Denies N/V/CP/SOB. Exam Vital Signs Vital Sign - Last Date Time Temp Pulse Resp B/P Pulse Ox O2 Delivery O2 Flow Rate FiO2 01/02/17 08:16 36.6 77 14 170/70 96 Room Air 01/01/17 07:14 4.00 Intake and Output 01/01/17 01/01/17 01/02/17 Cumulative From/Thru 15:00 23:00 07:00 12/31/16 14:35 - 01/02/17 05:39 Intake Total 1220 ml 759 ml 4434 ml Output Total 1000 ml 200 ml 1200 ml Balance 220 ml 559 ml 3234 ml Intake Oral 880 ml 640 ml 1520 ml IV Total 340 ml 119 ml 2914 ml Output Urine Total 0 ml 200 ml 200 ml Ultrafiltrate 1000 ml 1000 ml # Bowel Movements 0 0 Exam General appearance: Awake, alert, oriented x3. Mild distress. Nauseated. HEENT: Mild pallor. No jaundice. No JVD. No lymphadenopathy. No thyroid enlargement. Moist mucous membranes. PERRLA, atraumatic. Heart: Regular rhythm. Normal S1, S2. No murmurs, rubs, or gallops. Lungs: Clear to auscultation bilaterally. Positive for superficial vein dilatation on the left upper chest. Abdomen: Soft, NT, ND. Active bowel sounds. No hepatosplenomegaly. Extremity: No lower extremity edema. Positive for swelling on the left upper extremity. AV fistula with good thrill and bruit. Lab and Diagnostics Result Diagram: 01/02/17 0745 01/02/17 0745 Microbiology Microbiology 12/31/16 MRSA (PCR) - Final, Complete negative Additional Diagnostics Procedure Esophagogastroduodenoscopy Impression 2 cm creating ulcer at the GE junction with stable clot. Epinephrine injection. Unable to dislodge the clot with washing. Plan Impression 1. Hematemesis h/o severe ulcerative esophagitis, Juana-Griffith tear, and gastroparesis. s/p ED cm ulcers at the GE junction with stable clot. Epinephrine injection. 2. End-stage renal disease, on hemodialysis every Friday, Friday, and Friday. 3. Anemia of chronic kidney disease. 4. Renal osteodystrophy. 5. Hypertension with hypertensive nephrosclerosis. 6. Chronic left arm swelling secondary to complete occlusion of left brachiocephalic vein. 7. Marijuana abuse. Plan: HD in am without heparin. Advance diet as per GI. Isabella Pepper MD Jan 02, 2017 11:45
[2017-01-02] MEDS: Sucralfate 100 mg/mL 10 mL Suspension PO SCH ×3 (12:02→21:58)
--- NOTE | 2017-01-02 14:04 | PCM.PNMED ---
Subjective Date of Service Jan 02, 2017 Subjective Mr. Orville Kaplan is a pleasant 61 year old gentleman with past medical history of end-stage renal disease, gastroparesis, Juana-Griffith tear, esophageal ulceration who presented to the hospital with a complaint of vomiting blood. He was found to have an ulcer on endscopy which was treated with epinephrine.is being treated for acute upper gastrointestinal bleed, with endoscopy done by GI found to have a 2 cm ulcer and treated with epinephrine. Overnight events: Patient had elevated blood pressure to 178/77. He refused having another peripheral line placed. Blood pressure decreased after pain medications given. Today, Orville Kaplan mentions he's feeling good. He is not having any nausea, vomiting, constipation, diarrhea, abdominal, chest pain or shortness of breath. He still has not had a bowel movement since he's been here and has poor urine output due to end stage renal disease. Exam Vital Signs Vital Sign - Last Date Time Temp Pulse Resp B/P Pulse Ox O2 Delivery O2 Flow Rate FiO2 01/02/17 05:57 75 01/02/17 03:59 37.1 16 152/69 98 Room Air 01/01/17 07:14 4.00 Intake and Output 01/01/17 01/01/17 01/02/17 Cumulative From/Thru 15:00 23:00 07:00 12/31/16 14:35 - 01/02/17 05:39 Intake Total 1220 ml 759 ml 4434 ml Output Total 1000 ml 200 ml 1200 ml Balance 220 ml 559 ml 3234 ml Intake Oral 880 ml 640 ml 1520 ml IV Total 340 ml 119 ml 2914 ml Output Urine Total 0 ml 200 ml 200 ml Ultrafiltrate 1000 ml 1000 ml # Bowel Movements 0 0 Exam General: Resting in bed comfortable in no acute distress, well-developed, well- nourished, appropriately interactive HEENT: Normocephalic, atraumatic. External ears without defect. Pupils equal, round, and reactive to light and accommodation. Anicteric sclerae, . Cardiovascular: tachycardic rate and rhythm with no murmurs, rubs, or gallops appreciated Pulmonary: Clear to auscultation bilaterally with no crackles, wheezes, or rhonchi. Normal respiratory effort with no use of accessory muscles. Abdomen: Bowel tones present. Soft, nontender, nondistended. No hepatosplenomegaly or masses appreciated. Extremities: Left upper extremity edema, Lower extremity chronic venous stasis, 3 amputated toes on left foot. Skin: Normal temperature, turgor, and texture; no rash, ulcers, or subcutaneous nodules appreciated. Neurological: Cranial nerves grossly intact. Normal muscle strength, decreased tone and bulk in lower extremity. Psychiatric: Normal mood and affect. Alert and oriented to person, place, and time. Lab and Diagnostics Item Value Date Time White Blood Count 8.8 th/mm3 01/02/17744 Red Blood Count 3.56 mil/mm3 L 01/02/17 0745 Hemoglobin 11.1 g/dL L 01/02/17 0745 Hematocrit 34.0 % L 01/02/17 07 Platelet Count 286 baldev/L 01/02/17 0745 Platelet Count 339 baldev/L 01/01/17 06 Hematocrit 30.2 % L 01/01/17628 Hemoglobin 10.0 g/dL L 01/01/17 06 Red Blood Count 3.26 mil/mm3 L 01/01/17 06 White Blood Count 14.9 th/mm3 H 01/01/17 06 Prothrombin Time 10.4 sec 12/31/16 1500 Prothromb Time International Ratio 0.97 ratio 12/31/16 1500 Sodium Level 140 mEq/L 01/02/17 0745 Sodium Level 134 mEq/L 01/01/17 0629 Potassium Level 5.3 mEq/L H 01/01/17 0629 Potassium Level 4.6 mEq/L 01/02/17 0745 Blood Urea Nitrogen 22 mg/dL 01/02/1745 Blood Urea Nitrogen 46 mg/dL H 01/01/17 0629 Creatinine 7.25 mg/dL *H 01/01/17 0629 Creatinine 4.71 mg/dL H 01/02/17 0745 Glucose Level 200 mg/dL H 01/01/17 0629 Glucose Level 111 mg/dL H 01/02/17 0745 Magnesium Level 2.1 mg/dL 01/01/17 06 Result Diagram: 01/01/17 0629 01/01/17 06 Microbiology Microbiology 12/31/16 MRSA (PCR) - Final, Complete negative Additional Diagnostics Procedure Esophagogastroduodenoscopy Impression 2 cm creating ulcer at the GE junction with stable clot. Epinephrine injection. Unable to dislodge the clot with washing. Assessment & Plan Mr. Orville Kaplan is a pleasant 61 year old gentleman with past medical history of end-stage renal disease, gastroparesis, Juana-Griffith tear, esophageal ulceration who presented to the hospital with a complaint of vomiting blood. He was found to have an ulcer on endscopy which was treated with epinephrine.is being treated for acute upper gastrointestinal bleed, with endoscopy showing stable 2 cm ulcer. Acute Upper Gastro-Intestinal bleed, present on admission. Active. Was found to have 2 cm ulcer at the GE junction with a stable clot, treated with epinephrine. Continue IV Protonix 8 mg per hour until Friday morning then switch him to Protonix 40 mg twice a day by mouth. Carafate 10 mL 4 times a day to Friday morning. Advanced to full liquid diet today. Will advance to soft diet tomorrow AM. GI following, recommendations. End-stage Renal Disease, present on admission. Active. - Nephrology following, recommendations. - Hemodialysis M, W, F, with plan for tomorrow AM - Monitor kidney function Acute Hypertensive Urgency, present on admission. Resolved - IV Labetolol 10 given. - Nicardipine ggt used to correct BP - Monitor Vitals Acetaminophen for mild pain when necessary. Bowel regimen Senna and MiraLAX scheduled and PRN. Zofran when necessary for nausea and vomiting. SubQ heparin held for now. SCDs in place. High-risk medications: IV Dilaudid PRN pain. Disposition: Discharge tomorrow after hemodialysis if patient tolerating treatment recommendation by GI and if clinically stable. Pain Evaluation: Adequate Pain Control Resuscitation Status: CPR: Attempt Resuscitation Attending Statement The patient was seen and examined together with Dr. Parrish on 01/02/2017 and I agree with the history, exam and plan as outlined in the note above. . Tam Parrish DO Jan 02, 2017 06:42 Steve Garcia MD Jan 02, 2017 17:46
--- NOTE | 2017-01-02 15:52 | PCM.PNMED ---
Subjective Date of Service Jan 02, 2017 Subjective Patient feeling better today. He is resting comfortably in bed. He has not had any emesis since EGD. She is tolerating a full liquid diet. Obtaining medications on discharge discussed with patient. He said that he was paid on Friday and should be able to obtain his medications. I asked him if if he would like social work to come and discuss obtaining medications after discharge with him. He stated that he does not need any help, and would prefer to not have social work come and talk with him. Exam Vital Signs Vital Sign - Last Date Time Temp Pulse Resp B/P Pulse Ox O2 Delivery O2 Flow Rate FiO2 01/02/17 11:56 36.7 93 20 150/75 97 Room Air 01/01/17 07:14 4.00 Intake and Output 01/01/17 01/01/17 01/02/17 Cumulative From/Thru 15:00 23:00 07:00 12/31/16 14:35 - 01/02/17 05:39 Intake Total 1220 ml 759 ml 4434 ml Output Total 1000 ml 200 ml 1200 ml Balance 220 ml 559 ml 3234 ml Intake Oral 880 ml 640 ml 1520 ml IV Total 340 ml 119 ml 2914 ml Output Urine Total 0 ml 200 ml 200 ml Ultrafiltrate 1000 ml 1000 ml # Bowel Movements 0 0 Exam General: Oriented X3, Cooperative, no acute distress Head: Normal Neck: Supple Chest & Lungs: Clear to auscultation bilaterally Cardiovascular: Regular rate and rhythm Abdomen: Non-distended, Normoactive bowel tones, soft, mildly tender in epigastric area Extremities: Edema (left upper extremity) Neurological: Grossly Neurologically Intact Lab and Diagnostics Result Diagram: 01/02/17 0745 01/02/17 0745 Microbiology Microbiology 12/31/16 MRSA (PCR) - Final, Complete negative Additional Diagnostics Date of Service: Dec 31, 2016 Physician Erich Barron MD Pre Procedure Diagnosis: Hematemesis Post Procedure Dx & Findings: 2 cm ulcer in the GE junction with a stable clot Procedure Esophagogastroduodenoscopy Impression 2 cm creating ulcer at the GE junction with stable clot. Epinephrine injection. Unable to dislodge the clot with washing. Recommendation Continue IV Protonix drip Strict nothing by mouth Maximized anti-nausea vomiting protocol with Zofran and Compazine. Assessment & Plan Patient is a 61 yo man with history of end-stage renal disease on hemodialysis Friday, Juaan-Griffith tear, gastroparesis, LA Class D ulcerative esophagitis as noted on so EGD 11/18/16. Patient had multiple episodes of coffee-ground emesis and underwent endoscopy that showed a 2 cm cratering ulcer at the GE junction with stable clot status post epinephrine injection around the clock. Continue IV Protonix 8 mg per hour until Friday Start tonight PO Protonix 40 mg twice a day by mouth. Carafate 10 mL 4 times a day through Friday. Maximized anti-nausea vomiting protocol with Zofran and Compazine. Patient tolerating full liquid diet. Starting Friday advance diet as tolerated to soft foods. Social work referral to help assist patient with medication compliance. Follow-up with Dr. Kelly in 2 weeks in the outpatient GI clinic. I have seen and examined the patient and agree with above. Resuscitation Status: CPR: Attempt Resuscitation copies to: Barb Kelly MD; Erich Barron MD, Erika R DO Jan 02, 2017 15:52 Erich Barron MD Jan 03, 2017 19:00 Disposition: Discharge tomorrow after hemodialysis if patient tolerating treatment recommendation by GI and if clinically stable. Resuscitation Status: CPR: Attempt Resuscitation Hilary Sauceda DO Jan 02, 2017 15:52
--- NOTE | 2017-01-02 18:19 | NUR ---
GI Pt received scheduled zofran IV for mild nausea, no emesis this shift; pt refuses phenergan, states "I just don't like it.". No overt evidence of bleeding. Tolerating full liquid diet. Protonix gtt continues at 10mL/hr, to infuse until tomorrow morning, per GI MD. Pt to start on PO protonix this evening, awaiting pharmacy verification to be able to access and administer medication. 1mg IV dilaudid administered x2 this shift, pt able to request med prn; reports 5/10 epigastric pain that is well controlled with the dilaudid.
[2017-01-02] MEDS: Pantoprazole 40 mg ER24 Tablet PO SCH (18:41)
[2017-01-02] MEDS: Ondansetron 2 mg/mL 2 mL Inj IVPUSH PRN (23:18)
[2017-01-03 00:22] VITALS: BP 138/77; PULSE 99; RESP 16; O2SAT 96
[2017-01-03] MEDS: HYDROmorphone 1 mg/mL Inj IVPUSH PRN ×4 (02:39→14:23)
[2017-01-03] MEDS: Ondansetron 2 mg/mL 2 mL Inj IVPUSH PRN ×2 (03:15→07:36)
[2017-01-03] MEDS: Pantoprazole Inj 80 MG in 0.9% Sodium Chloride 80 ML IV SCH (04:10)
[2017-01-03 04:14] VITALS: BP 137/76; PULSE 79; RESP 18; O2SAT 97
[2017-01-03] MEDS: Promethazine Inj 25 MG in 0.9% Sodium Chloride 50 ML IV SCH ×3 (04:30→10:20)
[2017-01-03 05:42] VITALS: PULSE 90
--- NOTE | 2017-01-03 05:44 | NUR ---
P: c/o abdominal, esophagus pain, nausea I: dilaudid IV, zofran IV, sucrafate E: A/O. c/o abdominal, esophagus pain w/ intermittent burning pain. Dilaudid 1mg IVP given per request every 4 hours. Zofran 8mg IVP given every 4 hours. Pain and nausea continuous. Drinking coffee. Denies dyspnea. Tele SR 90s. BP stable. No s/sx of bleeding. Protonix drip infusing. HD planned for today. Makes minimal urine.
[2017-01-03] MEDS: Sucralfate 100 mg/mL 10 mL Suspension PO SCH ×2 (06:31→10:19)
[2017-01-03] MEDS: NiCARdipine Inj 25 MG in Dextrose 5% 240 ML IV SCH ×2 (06:32→10:19)
[2017-01-03 07:29] VITALS: BP 152/78; PULSE 76; RESP 14; O2SAT 98
[2017-01-03 07:31] LABS: BASOPHILS % (AUTO) 0.6 % (0-3); EOSINOPHILS % (AUTO) 2.4 % (0-5); Mean Corpuscular Hemoglobin 30.5 pg (27.0-35.0); Mean Corpuscular Volume 95.5 fL (81-100); NEUTROPHILS % (AUTO) 73.6 % (40-74); Platelet Count 299 bil/L (150-400)
[2017-01-03] MEDS: Pantoprazole 40 mg ER24 Tablet PO SCH (07:35)
[2017-01-03 08:00] VITALS: PULSE 101
[2017-01-03 09:11] VITALS: BP 168/84; PULSE 88
--- NOTE | 2017-01-03 13:39 | PCM.PNMED ---
Subjective Date of Service Jan 03, 2017 Subjective Patient is feeling well today. He is currently receiving dialysis. He has not had any abdominal pain out of the ordinary for him. He is looking forward to going home after dialysis. He understands the importance of getting his medications and appreciated his physicians expressing how important taking his medication is and why. Exam Vital Signs Vital Sign - Last Date Time Temp Pulse Resp B/P Pulse Ox O2 Delivery O2 Flow Rate FiO2 01/03/17 09:11 88 01/03/17 07:29 36.7 14 152/78 98 Room Air 01/01/17 07:14 4.00 Intake and Output 01/02/17 01/02/17 01/03/17 Cumulative From/Thru 15:00 23:00 07:00 12/31/16 14:35 - 01/03/17 06:12 Intake Total 932 ml 514 ml 5880 ml Output Total 700 ml 0 ml 1900 ml Balance 232 ml 514 ml 3980 ml Intake Oral 816 ml 400 ml 2736 ml IV Total 116 ml 114 ml 3144 ml Output Urine Total 700 ml 0 ml 900 ml Ultrafiltrate 1000 ml # Bowel Movements 0 0 Exam General: Oriented X3, Cooperative, no acute distress. Undergoing hemodialysis Head: Normal Neck: Supple Chest & Lungs: Clear to auscultation bilaterally Cardiovascular: Regular rate and rhythm Abdomen: Non-distended, Normoactive bowel tones, soft, mildly tender in epigastric area Extremities: Edema (left upper extremity) chronic Neurological: Grossly Neurologically Intact Lab and Diagnostics Result Diagram: 01/03/17 0716 01/03/17 0716 Microbiology Microbiology 12/31/16 MRSA (PCR) - Final, Complete negative Additional Diagnostics Date of Service: Dec 31, 2016 Physician Erich Barron MD Pre Procedure Diagnosis: Hematemesis Post Procedure Dx & Findings: 2 cm ulcer in the GE junction with a stable clot Procedure Esophagogastroduodenoscopy Impression 2 cm creating ulcer at the GE junction with stable clot. Epinephrine injection. Unable to dislodge the clot with washing. Recommendation Continue IV Protonix drip Strict nothing by mouth Maximized anti-nausea vomiting protocol with Zofran and Compazine. Assessment & Plan Patient is a 61 yo man with history of end-stage renal disease on hemodialysis Friday, Juana-Griffith tear, gastroparesis, LA Class D ulcerative esophagitis as noted on so EGD 11/18/16. Patient had multiple episodes of coffee-ground emesis and underwent endoscopy that showed a 2 cm cratering ulcer at the GE junction with stable clot status post epinephrine injection around the clock. Protonix 40 mg twice a day by mouth. Carafate 10 mL 4 times a day completed this morning. Maximized anti-nausea vomiting protocol with Zofran and Compazine. Patient tolerating soft diet Social work referral to help assist patient with medication compliance. Follow-up with Dr. Barron in 2 weeks in the outpatient GI clinic. Patient okay to discharge home from a GI perspective once medically stable. Resuscitation Status: CPR: Attempt Resuscitation copies to: Erich Barron MD, Erika R DO Jan 03, 2017 13:39
--- NOTE | 2017-01-03 13:50 | NUR ---
Dialysis note: 4 hrs tx 3000 ml net UF per pt's request, Dr Lynn notified FELISA graft, accessed w/ no problems Pls see DTR for VS details Qb 400 No heparin given, Citrasate used instead + NS @ 100 ml/hr given O2 @ 2L via NC on during tx PRN Dilaudid 1 mg IV given for pain Tolerated tx, slept at intervals Graft needle sites clotted w/in 10 min Stable condition at end of tx Report given to Madhuri LAGOS
--- NOTE | 2017-01-03 14:01 | PCM.PNNEPH ---
Subjective Date of Service Jan 03, 2017 Subjective I have reviewed the endoscopy results. Patient feels considerably better and is tolerating slow advances in his diet. Otherwise he has had no further nausea , vomiting, or diarrhea. Exam Vital Signs Vital Sign - Last Date Time Temp Pulse Resp B/P Pulse Ox O2 Delivery O2 Flow Rate FiO2 01/03/17 09:11 88 01/03/17 07:29 36.7 14 152/78 98 Room Air 01/01/17 07:14 4.00 Intake and Output 01/02/17 01/02/17 01/03/17 Cumulative From/Thru 15:00 23:00 07:00 12/31/16 14:35 - 01/03/17 06:12 Intake Total 932 ml 514 ml 5880 ml Output Total 700 ml 0 ml 1900 ml Balance 232 ml 514 ml 3980 ml Intake Oral 816 ml 400 ml 2736 ml IV Total 116 ml 114 ml 3144 ml Output Urine Total 700 ml 0 ml 900 ml Ultrafiltrate 1000 ml # Bowel Movements 0 0 Exam Neck is supple without adenopathy, thyromegaly, or jugular venous distention. Lungs are clear to auscultation. Heart was regular with a soft systolic murmur. Abdomen is soft without any tenderness rebound guarding masses or hepatosplenomegaly. [place] evidence of any clubbing, cyanosis, or edema. Skin turgor good. Lab and Diagnostics Result Diagram: 01/03/17 0716 01/03/17 07 Microbiology Microbiology 12/31/16 MRSA (PCR) - Final, Complete negative Additional Diagnostics Date of Service: Dec 31, 2016 Physician Erich Barron MD Pre Procedure Diagnosis: Hematemesis Post Procedure Dx & Findings: 2 cm ulcer in the GE junction with a stable clot Procedure Esophagogastroduodenoscopy Impression 2 cm creating ulcer at the GE junction with stable clot. Epinephrine injection. Unable to dislodge the clot with washing. Recommendation Continue IV Protonix drip Strict nothing by mouth Maximized anti-nausea vomiting protocol with Zofran and Compazine. Plan Impression Impression #1 end-stage renal disease dialysis dependent #2 severe diabetic gastroparesis #3 esophageal ulcerations Recommendations #1 patient is to dialyze today for 4 hours, max dialyzer, 2 potassium bath, and no heparin. Blood flow is 450 with 600 dialysate flow and we will try to take 3 L in fluid. Following his dialysis he can be discharged unless a new problem arises. Dewayne Lynn DO Jan 03, 2017 14:01
--- NOTE | 2017-01-03 14:53 | PCM.DIMED ---
Tam Parrish DO 01/03/17 1453: Discharge Instructions Date of Service Jan 03, 2017 Dates of Hospitalization Dec 31, 2016 at 18:11 Discharge Diagnosis Discharge Diagnosis Acute Upper Gastro-Intestinal bleed End-stage Renal Disease Acute Hypertensive Urgency Medication Instructions Additional med instructions Protonix 40 mg twice a day by mouth. Diet Discharge Diet: Heart Healthy, Diabetic, Other (Soft foods is better) Activity Discharge Activity: No restrictions Call your provider Call your provider for: Fever or Chills, Shortness of breath, Bleeding, Chest pain, Vomitting, Weakness (unilateral) Patient Instructions Patient Instructions New Medications Protonix 40 mg twice a day by mouth until reviewed by your clay dry press operator. Try to maintain a Soft diet Follow-up with Dr. Barron in 1-2 weeks in the outpatient GI clinic. Please be compliant with your outpatient medication. Follow-up Provider: Benny Hitchcock MD Follow-up with PCP in: 1 week (Hemodialysis as scheduled. Follow up with Dr. Hitchcock in 1-2 weeks) Provider: Erich Barron MD Follow-up in: 1 week (1-2 weeks) Steve Garcia MD 01/04/17 1735: Discharge Instructions Attending's Statement The patient was seen and examined together with Dr. Parrish on 01/03/2017 and I agree with the history, exam and plan as outlined in the note above. . Tam Parrish DO Jan 03, 2017 14:53 Steve Garcia MD Jan 04, 2017 17:35
[2017-01-03] MEDS ORDERED: PANT40TA3 PO ×2 (15:10→15:21)
--- NOTE | 2017-01-03 15:20 | NUR ---
Social Work: Multidisciplinary Rounds/Discharge D: Pt discussed in am rounds. Pt is medically stable for discharge. GI MD has concerns about the patient's outpatient medication compliance and states that the pt needs close follow up. EMPLOYEE BENEFITS INSURANCE AGENT received order to discuss barriers to med compliance with the patient. EMPLOYEE BENEFITS INSURANCE AGENT met with the patient at bedside. Pt states that "this isn't an issue anymore. Four doctors have already grilled me about this." Pt states that his son is going to peanut picker his medications the [facility] in [place]. Pt states that he does not wish to discuss reasons surrounding his previous non-compliance. EMPLOYEE BENEFITS INSURANCE AGENT explained that providers and staff are concerned about him and explained the risks associated with non-compliance in the future. Pt states that he understands these risks. MD has called in the d/c medications and is confirming with the pharmacy that they are being filled. Pt declined to have EMPLOYEE BENEFITS INSURANCE AGENT make have an appointment with his PCP and states that he sees Dr. Hitchcock bi-weekly at Dialysis and will follow up with him next Friday. EMPLOYEE BENEFITS INSURANCE AGENT spoke with Water Resource Agent [facility] to inform her of the MD Concerns regarding the pt's medication compliance issues. She is aware and will continue to follow up with the patient as an outpatient to attempt to address any medication barriers in the future A: Pt who is I at baseline and ambulating I during admission. P: Pt to discharge home with no further sw needs. Pt to continue [place] [facility] [place] MARCOS Morgan
--- NOTE | 2017-01-03 16:12 | NUR ---
Discharge Pt D/Cd home in stable condition. New Rx hard copy given to pt, copy in chart. Stressed importance of compliance of medication as well as follow up appts that have been set up for him with GI MD. Pt states he understands and has no questions at this time. PIV and TELE D/Cd, pt wheeled out by ZO.
--- NOTE | 2017-01-03 17:06 | PCM.DC.MED ---
Discharge Summary Date of Service Jan 03, 2017 Dates of Hospitalization Date of Hospital Admission Dec 31, 2016 at 18:11 Date of Discharge: Jan 03, 2017 Providers: Admitting Physician: Steve Garcia MD Primary Care Physician: Benny Hitchcock MD Attending Physician: Steve Garcia MD Diagnosis at Time of Discharge Diagnosis at Time of Discharge Acute Upper Gastro-Intestinal bleed End-stage Renal Disease Acute Hypertensive Urgency Procedures Other Diagnostics Date of Service: Dec 31, 2016 Physician Erich Barron MD Pre Procedure Diagnosis: Hematemesis Post Procedure Dx & Findings: 2 cm ulcer in the GE junction with a stable clot Procedure Esophagogastroduodenoscopy Impression 2 cm creating ulcer at the GE junction with stable clot. Epinephrine injection. Unable to dislodge the clot with washing. Recommendation Continue IV Protonix drip Strict nothing by mouth Maximized anti-nausea vomiting protocol with Zofran and Compazine. Brief History Mr. Orville Kaplan is a pleasant 61 year old gentleman with past medical history of end-stage renal disease, gastroparesis, Juana-Griffith tear, esophageal ulceration who presented to the hospital with a complaint of vomiting blood. The patient reported that he had two episode of hematemesis this morning. Initially, the vomitus was nonbloody and a change to coffee ground emesis of roughly "200 cc's" The patient has had multiple hospitalizations related to upper GI bleed. Last hospitalization was between November 16 and November 19. Last endoscopy performed on November 12, 2016 showed ulcerative esophagitis. He reports of chronic epigastric pain, some constipation with an episode of bright red blood per rectum and denies history of hemorrhoids. He denies fever, chills, syncope, chest pain, shortness of breath, headache, diarrhea. Patient underwent upper endoscopy with GI team that showed a 2 cm cratering ulcer at the GE junction with stable clot status post epinephrine injection around the clock. He was given max dose anti-nausea medications and slow diet advancing. He was also started on Protonix ggt. When he was tolerating soft diet and hgb and vitals were stable, patient was discharged home with recommendations to continue home medications. Social work referral to help assist patient with medication compliance. Follow-up with Dr. Barron in 2 weeks in the outpatient GI clinic. Hospital Course Acute Upper Gastro-Intestinal bleed, present on admission.Resolved. Was found to have 2 cm ulcer at the GE junction with a stable clot, treated with epinephrine. Continue IV Protonix 8 mg per hour until Friday (01/03/17) morning then switch him to Protonix 40 mg twice a day by mouth with strong home medication recommendations. Carafate 10 mL 4 times a day to Friday morning (01/03/17). Advance to soft diet was well tolerated today. End-stage Renal Disease, present on admission. Active. - Hemodialysis M, W, F, with dialysis here at [facility] 01/03/17 before discharge. - Monitor kidney function Acetaminophen for mild pain when necessary. Bowel regimen Senna and MiraLAX scheduled and PRN. Zofran when necessary for nausea and vomiting. SubQ heparin held for now. SCDs in place. High-risk medications: IV Dilaudid PRN pain till discharge. Exam Vital Signs (Last) Date Time Temp Pulse Resp B/P Pulse Ox O2 Delivery O2 Flow Rate FiO2 01/03/17 09:11 88 01/03/17 07:29 36.7 14 152/78 98 Room Air 01/01/17 07:14 4.00 Exam General: No Acute distress from nausea and vomiting, well-developed, well- nourished, appropriately interactive HEENT: Normocephalic, atraumatic. External ears without defect. Pupils equal, round, and reactive to light and accommodation. Anicteric sclerae, moist conjunctivae, and no lid lag. Oropharynx free of erythema and cobble stoning with moist mucosa. Neck: Supple with full range of motion. No jugular venous distension. No bruits. No lymphadenopathy or thyromegaly. Cardiovascular: Regular rate and rhythm with no murmurs, rubs, or gallops appreciated Pulmonary: Clear to auscultation bilaterally with no crackles, wheezes, or rhonchi. Normal respiratory effort with no use of accessory muscles. Abdomen: Bowel tones present. Soft, nontender, nondistended. No hepatosplenomegaly or masses appreciated. Extremities: No clubbing, cyanosis, Left upper extremity edema, or lymphadenopathy appreciated. Lower extremity chronic venous stasis. Skin: Normal temperature, turgor, and texture; no rash, ulcers, or subcutaneous nodules appreciated. Neurological: Cranial nerves grossly intact. Normal muscle strength, tone, and bulk. Reflexes, coordination, and sensory function within normal limits. No known gait impairment. Psychiatric: Normal mood and affect. Alert and oriented to person, place, and time. Discharge Medications Discharge Medications Pantoprazole DR (Pantoprazole DR) 40 Mg Tablet.dr 40 MG PO BIDAC Prescribed by: JUSTIN JACOBS MD Pantoprazole DR (Pantoprazole DR) 40 Mg Tablet.dr 40 MG PO BID Prescribed by: EDVIN BOLIVAR Pantoprazole (Pantoprazole DR) 40 Mg Tablet.dr 40 MG PO BID Prescribed by: EDVIN BOLIVAR, As needed Calcium Carbonate (Tums) 500 Mg Tab.chew 1,000 MG PO PRN PRN PRN For Indigestion (Reported) Hydromorphone (Hydromorphone) 2 Mg Tablet 2 MG PO Q4H PRN PRN Pain (Reported) Ondansetron ODT (Zofran ODT) 8 Mg Tablet 8 MG PO Q4H PRN PRN For Nausea ( Reported) Additional med instructions Protonix 40 mg twice a day by mouth. Followup Plan Follow-up plan Follow up with Dr. Barron in 1-2 weeks time. Discharge Diet: Heart Healthy, Diabetic, Other (Soft foods is better) Discharge Activity: No restrictions Patient Instructions New Medications Protonix 40 mg twice a day by mouth until reviewed by your payment manager. Try to maintain a Soft diet Follow-up with Dr. Barron in 1-2 weeks in the outpatient GI clinic. Please be compliant with your outpatient medication. Follow-up Provider: Benny Hitchcock MD Follow-up with PCP in: 1 week (Hemodialysis as scheduled. Follow up with Dr. Hitchcock in 1-2 weeks) Provider: Erich Barron MD Follow-up in: 1 week (1-2 weeks) Time spent Greater than 30 minutes was spent in preparation of discharge with greater than 50% of that time dedicated to patient counseling and coordination of care. . Attending Statement The patient was seen and examined together with Dr. Faulkner on 01/03/2017 and I agree with the history, exam and plan as outlined in the note above. . copies to: Erich Barron MD; Benny Hitchcock MD, COREY P DO Jan 03, 2017 17:06 Steve Garcia MD Jan 04, 2017 17:36
== END 2017-01-03 16:12 | disposition home or self-care (01) | DRG 377 ==
LOC: SED 14:32 → PCC 18:11 → CCU 19:48 → PCC 01-01 08:15
PROVIDERS: ADMIT Internal Medicine; ATTEND Internal Medicine
PROC: 0DJ08ZZ Inspection of Upper Intestinal Tract, Via Natural or Artificial Opening Endoscopic (ICD-10-PCS; 2016-12-31)
PROC: 3E0G8GC Introduction of Other Therapeutic Substance into Upper GI, Via Natural or Artificial Opening Endoscopic (ICD-10-PCS; principal; 2016-12-31 19:00)
PROC: 5A1D60Z (ICD-10-PCS; 2017-01-01)
DX: K92.0 Hematemesis (principal); N18.6 End stage renal disease; I12.0 Hypertensive chronic kidney disease with stage 5 chronic kidney disease or end stage renal disease; Z99.2 Dependence on renal dialysis; Z89.429 Acquired absence of other toe(s), unspecified side; Z87.891 Personal history of nicotine dependence; Z98.61 Coronary angioplasty status; I16.0 Hypertensive urgency; D63.1 Anemia in chronic kidney disease; N25.0 Renal osteodystrophy

== ENCOUNTER 2017-02-05 14:18 | Emergency (ER) | payer MEDICARE, OTHER ==
[~2017-02-05] VITALS: Ht 185.4 cm; Wt 82.0 kg
[~2017-02-05 14:18] MED LIST changes: -METO10TA3 PO; -ONDA4TAB12 PO; +ONDA8TAB7 PO
[2017-02-05 14:24] VITALS: BP 164/74; PULSE 101; RESP 14; O2SAT 100
[2017-02-05] MEDS ORDERED: LidocaineVisc 2%:Antacid 1:1 10 mL Syringe PO ONE (14:30)
[2017-02-05] MEDS ORDERED: Ondansetron 2 mg/mL 2 mL Inj IVPUSH ONE (14:30)
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
[2017-02-05] MEDS ORDERED: Promethazine Inj 25 MG in 0.9% Sodium Chloride 50 ML IV ONE (15:20)
[2017-02-05 15:30] LABS: BASOPHILS % (AUTO) 0.2 % (0-3); EOSINOPHILS % (AUTO) 0.1 % (0-5); MONOCYTES % (AUTO) 3.7 % (4-12); Mean Corpuscular Volume 90.2 fL (81-100); NEUTROPHILS % (AUTO) 92.5 % (40-74); Platelet Count 316 bil/L (150-400)
[2017-02-05 15:51] LABS: Magnesium 1.7 mg/dL (1.6-2.6)
[2017-02-05 17:09] VITALS: BP 203/97; PULSE 100; RESP 20; O2SAT 97
== END 2017-02-05 17:39 | disposition home or self-care (01) ==
LOC: SED 14:18
DX: E11.43 Type 2 diabetes mellitus with diabetic autonomic (poly)neuropathy (principal); K31.84 Gastroparesis; F11.29 Opioid dependence with unspecified opioid-induced disorder; R45.1 Restlessness and agitation; I13.10 Hypertensive heart and chronic kidney disease without heart failure, with stage 1 through stage 4 chronic kidney disease, or unspecified chronic kidney disease; N19 Unspecified kidney failure; I25.10 Atherosclerotic heart disease of native coronary artery without angina pectoris; K21.9 Gastro-esophageal reflux disease without esophagitis; E78.5 Hyperlipidemia, unspecified; Z87.891 Personal history of nicotine dependence; Z99.2 Dependence on renal dialysis; Z88.1 Allergy status to other antibiotic agents
CPT/HCPCS: 36415; 80053; 83690; 83735; 85025; 96374; 96375; 99284; J2405; J2550

== ENCOUNTER 2017-02-05 19:21 | Emergency (ER) | payer MEDICARE, OTHER ==
[~2017-02-05] VITALS: Ht 185.4 cm; Wt 82.0 kg
[2017-02-05 19:34] VITALS: BP 193/93; PULSE 115; RESP 20; O2SAT 100
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
[2017-02-05] MEDS ORDERED: 0.9% Sodium Chloride 1,000 ML IV ONE (19:46)
[2017-02-05] MEDS ORDERED: Ondansetron 2 mg/mL 2 mL Inj IVPUSH ONE (19:50)
[2017-02-05] MEDS ORDERED: Pantoprazole 4 mg/mL 10 mL Inj IVPUSH ONE (19:50)
[2017-02-05] MEDS ORDERED: MetoCLOpramide 5 mg/mL 2 mL Inj IVPUSH ONE (20:20)
[2017-02-05 21:46] LABS: BASOPHILS % (AUTO) 0.1 % (0-3); EOSINOPHILS % (AUTO) 0 % (0-5); MONOCYTES % (AUTO) 3.6 % (4-12); Mean Corpuscular Hemoglobin 30.1 pg (27.0-35.0); Mean Corpuscular Volume 90.2 fL (81-100); NEUTROPHILS % (AUTO) 94.3 % (40-74); Platelet Count 310 bil/L (150-400)
[2017-02-05 21:52] VITALS: BP 187/87; PULSE 117; RESP 16; O2SAT 99
[2017-02-05 22:04] LABS: INR 0.96 ratio
[2017-02-05 22:55] VITALS: BP 177/105; PULSE 103; RESP 18; O2SAT 98
== END 2017-02-05 20:15 | disposition home or self-care (01) ==
LOC: SED 19:21
DX: K31.84 Gastroparesis (principal); R11.2 Nausea with vomiting, unspecified; R10.13 Epigastric pain; F11.29 Opioid dependence with unspecified opioid-induced disorder; I11.9 Hypertensive heart disease without heart failure; I25.10 Atherosclerotic heart disease of native coronary artery without angina pectoris; K21.9 Gastro-esophageal reflux disease without esophagitis; E78.5 Hyperlipidemia, unspecified; F41.8 Other specified anxiety disorders; E11.40 Type 2 diabetes mellitus with diabetic neuropathy, unspecified; E11.22 Type 2 diabetes mellitus with diabetic chronic kidney disease; N18.6 End stage renal disease; Z99.2 Dependence on renal dialysis; Z87.891 Personal history of nicotine dependence; Z88.1 Allergy status to other antibiotic agents
CPT/HCPCS: 36415; 80053; 85025; 85610; 86850; 93005; 96374; 96375; 99285; J1200; J2405; J2765; J7030; S0164

== ENCOUNTER 2017-02-07 14:34 | Inpatient (IN) | payer MEDICARE, OTHER ==
[2017-02-07] VITALS (8 sets, daily range): BP systolic 147–206; BP diastolic 62–98; PULSE 82–128; RESP 17–24; O2SAT 96–100
[~2017-02-07] VITALS: Ht 185.4 cm; Wt 83.5 kg
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
[2017-02-07] MEDS ORDERED: 0.9% Sodium Chloride 1,000 ML IV ONE (15:01)
[2017-02-07] MEDS ORDERED: Promethazine Inj 25 MG in 0.9% Sodium Chloride 50 ML IV ONE (15:05)
[2017-02-07] MEDS ORDERED: Iohexol 300 mg/mL 30 mL Inj PO ONE (15:05)
--- NOTE | 2017-02-07 15:47 | DRSVH ---
PROCEDURE: CT KUB ([id number]) INDICATIONS: worsening abd pain, tachycardia TECHNIQUE: Noncontrast 5 mm thick sections acquired from the diaphragms to the symphysis. 5 mm thick coronal an d sagittal reformats were then performed. For radiation dose reduction, the following was used: aut omated exposure control, adjustment of mA and/or kV according to patient size. COMPARISON: [facility], CT, ABD/PELVIS W/CON (PNL), 06/02/2012, 17:31. [facility], CT, ABD/PELVIS W/CON (PNL), 09/08/2012, 23:16. [facility], CT, ABD/PELVIS W/O C ON (PNL), 03/19/2013, 10:45. [facility], CT, ABD/PELVIS W/O CON (PNL), 09/17/2014, 14:54. [facility], CT, ABD/PELVIS W/CON (PNL), 08/05/2014, 6:29. [facility], CT, AB D/PELVIS W/CON (PNL), 11/26/2013, 12:05. [facility], CR, XR ABD ACUTE SERIES 3VW, 11/11/19 17, 8:33. [facility], CT, CT ABD PELVIS W CON, 12/06/2015, 10:02. [facility] , CT, CT ABD PELVIS WO CON, 10/02/2015, 0:36. [facility], CT, CT ABD PELVIS W CON, 016, 23:18. [facility], CR, XR ABD ACUTE SERIES 3VW, 07/26/2015, 2:04. [facility], CR, XR ABD ACUTE SERIES 3VW, 06/25/2015, 2:21. [facility], CT, CT ABD PELVIS W CO N, 04/29/2015, 21:48. [facility], CT, CT ABD PELVIS WO CON, 03/26/2015, 3:45. [facility], CT, CT ABD PELVIS WO CON, 01/30/2015, 22:56. [facility], CR, ABD ACUTE SERI ES, 11/16/2014, 12:26. [facility], CT, CT ABD PELVIS WO CON, 11/11/2016, 20:09. FINDINGS: Image quality: Excellent. Lung bases: Lung bases are clear. Heart size is normal. Atherosclerotic calcifications are noted in the visualized coronary vasculature. Urinary system: Both kidneys are normal in size. No kidney stones. No hydronephrosis or perinephri c fat stranding. Both ureters appear non-dilated throughout their expected courses. Bladder wall th ickness is normal; no calcified bladder stones. Other solid organs: Liver and spleen are normal in size. Hypoattenuating lesion in the right hepatic lobe slightly increased in size compared to 11/11/16 measuring approximately 2.9 cm in maximum diamet er. Gallbladder is within normal limits. Pancreas is normal in contours. No adrenal nodules. Peritoneum and bowel: Small hiatal hernia noted. Unenhanced bowel loops demonstrate normal wall thic kness and caliber. No free fluid or air. The appendix is normal. Nodes and vessels: No retroperitoneal or mesenteric adenopathy by size criteria. Aorta and inferior vena cava are normal in caliber. Abdominal wall: No ventral hernias. Pelvis: No free pelvic fluid. No inguinal hernias or adenopathy. Bladder circumferential wall thick ening noted. Bones: No suspicious bony lesions. No vertebral body compression fractures. Spine degenerative disc disease and facet arthropathy. L1, L2 and L3 lytic lesions are noted. IMPRESSION: 1. No renal stone or hydronephrosis. 2. No free fluid or air. 3. No dilated loops of bowel. 4. The appendix is normal. 5. 2.9 cm hypoattenuating lesion in the right lobe liver. Recommend CT scan of the abdomen with contr ast when clinically feasible. 6. Small hiatal hernia. 7. Atherosclerosis including the coronary vasculature. 8. Mild, circumferential urinary bladder wall thickening which could be due to nondistention versus i nfectious or infiltrating process. Recommend correlation with urinalysis findings. 9. Lytic lesions involving the L1, L2 and L3 vertebral bodies. Recommend MRI of the lumbar spine with and without gadolinium to exclude metastatic disease. Dictated by: Shanita Mims MD, PhD on 02/07/2017 at 15:32 Approved by: Shanita Mims MD, PhD on 02/07/2017 at 15:46
[2017-02-07 16:39] LABS: BASOPHILS % (AUTO) 0.1 % (0-3); EOSINOPHILS % (AUTO) 0 % (0-5); MONOCYTES % (AUTO) 4.8 % (4-12); Mean Corpuscular Hemoglobin 30.3 pg (27.0-35.0); Mean Corpuscular Volume 89.8 fL (81-100); NEUTROPHILS % (AUTO) 92.5 % (40-74); Platelet Count 313 bil/L (150-400)
[2017-02-07 16:47] LABS: INR 0.95 ratio
[2017-02-07 17:03] LABS: Magnesium 1.6 mg/dL (1.6-2.6)
[2017-02-07 17:05] LABS: TROPONIN T 0.151 ug/L (0.0-0.011)
[2017-02-07] MEDS ORDERED: Polyethylene Glycol (PEG) 17 Gm Powder PO PRN (19:20)
[2017-02-07] MEDS ORDERED: Alum-Mag Hydrox-Simeth 30 mL Suspension PO PRN (19:20)
[2017-02-07] MEDS ORDERED: 0.9% Sodium Chloride 1,000 ML IV SCH (20:00)
[2017-02-07] MEDS: Ondansetron 2 mg/mL 2 mL Inj IVPUSH PRN (20:27)
[2017-02-07] MEDS: 0.9% Sodium Chloride 1,000 ML IV SCH (20:27)
[2017-02-07] MEDS: Labetalol 5 mg/mL 20 mL Inj IVPUSH PRN ×2 (20:59→22:54)
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
[2017-02-07] MEDS ORDERED: Promethazine 25 mg/mL Inj IV PRN (22:00)
[2017-02-07] MEDS ORDERED: Promethazine Inj 25 MG in 0.9% Sodium Chloride 50 ML IV PRN (22:15)
[2017-02-07] MEDS: ERYTHROMYCIN IV SCH (22:54)
[2017-02-07] MEDS: SODIUM CHLORIDE 0.9% IV SCH (22:54)
[2017-02-08] VITALS (9 sets, daily range): BP systolic 124–220; BP diastolic 63–102; PULSE 70–120; RESP 16–18; O2SAT 95–99
[2017-02-08] MEDS: Insulin Human REGular 300 Unit/3 mL Inj SUBQ SCH ×5 (00:35→20:35)
[2017-02-08] MEDS: Heparin 5,000 Unit/mL Inj SUBQ SCH ×5 (01:35→20:37)
[2017-02-08] MEDS: SODIUM CHLORIDE 0.9% IV SCH (04:07)
[2017-02-08] MEDS: ERYTHROMYCIN IV SCH (04:07)
[2017-02-08] MEDS: Ondansetron 2 mg/mL 2 mL Inj IVPUSH PRN ×4 (05:35→23:21)
[2017-02-08] MEDS: Labetalol 5 mg/mL 20 mL Inj IVPUSH PRN (05:36)
--- NOTE | 2017-02-08 05:46 | NUR ---
Admit PT admitted from ED for abdominal pain r/t gastroparesis flare up. PT is found to be hypertensive and is currently on his 3rd dosing of IV labetolol. PT b/p is currently 220/110. Pt is on tele and is sinus tach up to 134 on admit. BS are hypo t/o. Pt is retching, but no emesis noted. Zofran has been effective for nausea. Morphine given once for severe pain. Toradol also given once with good relief. PT b/p did go down to 150's after first 2 doses of labetolol, but is back up at this time. Hence, the reason the morphine was given with labetolol. PT noted to be lying in bed with legs lifted off the bed in attempt to manage pain. PT has iv in R ankle due to poor iv access. Pt has LUE dialysis shunt with good thrill and bruit noted. PT also has a failed shunt in RUE. PT states the one in his right arm never worked. PT has been mildly sedated upon arrival from ED and has so far been sleeping most of the night. B/P down to 178/92, HR 95 with one dose labetolol. WIll CTM. PT is scheduled for MRI today. Still waiting for urine sample. PT oliguric.
[2017-02-08] MEDS: 0.9% Sodium Chloride 1,000 ML IV SCH ×2 (08:03→12:45)
[2017-02-08 09:11] LABS: BASOPHILS % (AUTO) 0.1 % (0-3); EOSINOPHILS % (AUTO) 0.1 % (0-5); MONOCYTES % (AUTO) 6.1 % (4-12); Mean Corpuscular Hemoglobin 30.4 pg (27.0-35.0); Mean Corpuscular Volume 89.9 fL (81-100); Platelet Count 292 bil/L (150-400)
[2017-02-08 10:03] LABS: Magnesium 1.7 mg/dL (1.6-2.6)
[2017-02-08] MEDS ORDERED: MetoCLOpramide 5 mg/mL 2 mL Inj IVPUSH PRN (12:00)
--- NOTE | 2017-02-08 12:06 | DRSVH ---
PROCEDURE: MRI LUMBAR SPINE WITHOUT CONTRAST ([id number]) INDICATIONS: Lytic lesions in the lumbar spine on CT. TECHNIQUE: Noncontrast sagittal T1 spin echo and T2 fast echo, sagittal STIR, axial T1 and T2 fast spin echo thr ough the lumbar spine. In cases with scoliosis, additional coronal T2 fast spin echo may be performe d. COMPARISON: [facility], CT, CT KUB, 02/07/2017, 15:29. FINDINGS: Image quality: Diagnostic. Alignment and Curvature: There is minimal retrolisthesis of L3 on L4. Bone Marrow: Marrow is heterogeneous in signal likely representing hematopoietic marrow reconversion . There are prominent Schmorl's nodes along the inferior endplates of L1, L2, and L3 with associated reactive endplate edema. No acute vertebral body compression fractures. No suspicious intraosseous mass lesions. Spinal Cord: Conus medullaris terminates at the L1 level. Visualized cord demonstrates normal signa l and size. Paraspinous Soft Tissues: No paravertebral masses. L1-L2: Disc desiccation with minimal loss of disc height a minimal disc bulge. There is mild facet a rthropathy. No spinal canal or neuroforaminal narrowing. L2-L3: Disc desiccation with minimal loss of disc height and a minimal broad-based disc bulge. There is mild facet arthropathy. No spinal canal narrowing. There is mild right and minimal left neurofo raminal narrowing. L3-L4: Disc desiccation with mild loss of disc height and a small broad-based disc bulge. There is m oderate facet arthropathy and mild ligamentum flavum hypertrophy. There is associated moderate spina l canal narrowing with moderate right and mild to moderate left neuroforaminal narrowing. L4-L5: Disc desiccation with a small broad-based disc bulge. There is moderate to severe facet arthr opathy with a small left joint effusion. There is mild ligamenta flava hypertrophy. The findings co ntribute to mild to moderate spinal canal narrowing with moderate right and mild left neuroforaminal narrowing. L5-S1: Disc desiccation with minimal loss of disc height posteriorly and a minimal disc bulge. There is a small posterior annular fissure. There is moderate facet arthropathy. Findings contribute to minimal overall spinal canal narrowing with mild narrowing of the lateral recesses. There is mild to moderate left and mild right neuroforaminal narrowing. IMPRESSION: 1. Prominent Schmorl's nodes along the inferior endplates at L1-L3 correspond to the lytic lesions s een on CT. 2. Multilevel degenerative changes throughout the lumbar spine most prominent at L3-L4 where there i s moderate spinal canal narrowing. 3. Multilevel neuroforaminal narrowing also demonstrated including moderate narrowing on the right a t L3-L4 and L4-5. Dictated by: Quinton Medina M.D. on 02/08/2017 at 12:05 Approved by: Quinton Medina M.D. on 02/08/2017 at 12:05
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
[2017-02-08] MEDS: HYDROmorphone 0.5 mg/0.5 mL iSecure Syringe IVPUSH PRN ×3 (13:36→23:21)
--- NOTE | 2017-02-08 13:54 | PCM.PNMED ---
Subjective Date of Service Feb 08, 2017 Subjective Patient seen and examined. Says his pain is better, but there. Passing gas. Vitals noted. Exam Vital Signs Vital Sign - Last Date Time Temp Pulse Resp B/P Pulse Ox O2 Delivery O2 Flow Rate FiO2 02/08/17 13:41 36.9 70 16 152/66 97 Room Air Intake and Output 02/07/17 02/07/17 02/08/17 Cumulative From/Thru 15:00 23:00 07:00 02/07/17 14:41 - 02/08/17 06:04 Intake Total 1000 ml 617 ml 1617 ml Output Total 0 ml 0 ml Balance 1000 ml 617 ml 1617 ml Intake Oral 0 ml 0 ml IV Total 1000 ml 617 ml 1617 ml Output Urine Total 0 ml 0 ml Exam General: Disheveled, moderate distress, diaphoretic Cardiovascular: Tachycardic, no clicks murmurs or rubs appreciated Pulmonary: Clear to auscultation bilaterally, no W/R/R. Abdominal: Soft to palpation, bowel sounds present 4, no hepatosplenomegaly. Negative rebound. Tenderness to moderate palpation in the epigastrium, mildly. Extremities: Surgical removal of left toes, IV to dorsal right foot. No edema or asymmetries to his legs, left arm larger than right, AV fistulas left arm. Neuro: Neurologically grossly intact, strength is equal bilaterally upper and lower extremities. Lab and Diagnostics Result Diagram: 02/08/17 0855 02/08/17 0855 X-Rays, CTs and MRIs Abdomen pelvis CT performed 02/07/2017 IMPRESSION: 1. No renal stone or hydronephrosis. 2. No free fluid or air. 3. No dilated loops of bowel. 4. The appendix is normal. 5. 2.9 cm hypoattenuating lesion in the right lobe liver. Recommend CT scan of the abdomen with contrast when clinically feasible. 6. Small hiatal hernia. 7. Atherosclerosis including the coronary vasculature. 8. Mild, circumferential urinary bladder wall thickening which could be due to nondistention versus infectious or infiltrating process. Recommend correlation with urinalysis findings. 9. Lytic lesions involving the L1, L2 and L3 vertebral bodies. Recommend MRI of the lumbar spine with and without gadolinium to exclude metastatic disease. Dictated by: Shanita Mims MD, PhD on 02/07/2017 at 15:32 12-lead ECG EKG: Heart rate 119, sinus tachycardia, R BBB and L PFB, no significant change from previous. MT 142, QTC 475. Assessment & Plan 61-year-old gentleman with complicated medical history presents with intractable vomiting secondary to gastroparesis, elevated blood pressure, tachycardia, incidentally found to have lytic lesions in his spine and questionable radiographic findings in his bladder. Acute on chronic Gastroparesis, present on admission, active Phenergan and ondansetron for nausea Erythromycin 100 mg every 8 hours for only two doses. Changed to Reglan 10mg q6hrs after 2nd dose of erythromycin, to begin 1200 02/08/. Dilaudid for pain (patient takes it chronically, discussed with Dr. Crystal who knows the patient well), doubt seeking behavior Clear liquids, advance as tolerated Advanced to oral erythromycin once he is able to tolerate oral Parenteral fluids for hydration, normal saline 60 mL per hour Lumbar changes, present on admission, resolved New findings of Lytic lesions to lumbar 1, 2 and 3. Circumferential bladder wall thickening possible infectious or infiltrative process Lumbar MRI - consistent with Schmorl's nodes, no signs of metastatic disease Acute on chronic hypertensive urgency, present on admission, active patient gets that response to pain , not on antihypertensives at home Labetalol 20 mg every 15 minutes to reach blood pressure 175-150 systolic. No More than 4 doses. Elevated troponin. Present on admission Likely due to demand ischemia as well as from renal failure trending troponin levels overnight No indication for Heparin drip with no anginal symptoms Chronic uncontrolled diabetes type II, non-insulin using, present on admission, active Blood glucose 237 at admission, without polyuria, no polydipsia. Hemoglobin A1c in the morning Low-dose correctional insulin to begin IV fluids, urine analysis once he is able to provide a urine sample. Acute worsening leukocytosis, present on admission, active Likely reactive 2/2 vomiting will monitor for fever Acute on chronic kidney injury, present on admission, active Hemodialysis dependent, Friday, has fistula, does not have a port, felt fistulas in the past on his upper extremities have left us with only lower extremity IV access. Received hemodialysis 02/07/2017 Intend to maintain hemodialysis schedule Pelvis CAT scan showed that there might be an infection, IV fluids, urine analysis when available. Nephrology consult, Dr. Sullivan on board Acute Hyponatremia, present on admission, active Serum sodium was within normal range yesterday during ER visits, 132 yesterday after correcting for elevated glucose 133 today, without symptoms. will monitor lytes Chronic pain with chronic opioid use, present on admission, active Difficult case as patient's pain makes his bp worse, however narcotics cannot be given due to gastroparesis, patient has extensive neuropathy and needs pain killers to control his pain Discussed with Dr. Lynn, who knows the patient very well, says he does well with pain control with narcotics will restart dilaudid DVT prophylaxis heparin subcutaneous Patient admitted to inpatient status with anticipated length of stay greater than 2 mid nights, based on diagnosis, anticipated treatment, and risk of adverse events. Time spent 35 mins Rico Platt MD Feb 08, 2017 13:54 Patient admitted to inpatient status with anticipated length of stay greater than 2 mid nights, based on diagnosis, anticipated treatment, and risk of adverse events. Rico Platt MD Feb 08, 2017 13:54
--- NOTE | 2017-02-08 18:19 | NUR ---
BP/pain/diet BP has remained below perimeter for PRN Lobetalol throughout this shift. Pt remains on bedrest due to R foot IV site. Pt c/o generalized pain, PRN analgesic effective. Pt NPO upon beginning of shift, changed to CL diet. Pt upset, states that due to dialysis and inability to produce urine, fluid will accumulate and require "three or four" dialysis tx's to get extra fluid off. This was communicated to MD who agreed to upgrade pt to a diet as tolerated so pt can regulate fluid intake. Pt req one dose of PRN antiemetic, effective. No retching/emesis this shift. Bed in lowest, locked position and call light in reach.
[2017-02-08] MEDS ORDERED: Dextrose 10% 250 ML IV PRN (18:25)
[2017-02-08] MEDS: Pantoprazole 40 mg ER24 Tablet PO SCH (20:28)
[2017-02-09 01:03] VITALS: BP 120/65; PULSE 81; RESP 18; O2SAT 97
[2017-02-09] MEDS: Ondansetron 2 mg/mL 2 mL Inj IVPUSH PRN ×3 (03:17→12:21)
[2017-02-09] MEDS: HYDROmorphone 0.5 mg/0.5 mL iSecure Syringe IVPUSH PRN ×3 (03:17→12:21)
[2017-02-09 04:22] VITALS: BP 145/73; PULSE 76; RESP 19; O2SAT 97
--- NOTE | 2017-02-09 05:04 | NUR ---
NOC activity pt reports of abd pain 12/07 controlled with .5mg dilaudid. Reports of nausea. Zofran administered PRN. No further complains throughout the night. Intentional hourly rounding done. VSS WNL and has been afebrile. Hourly rounding in effect.
[2017-02-09] MEDS: 0.9% Sodium Chloride 1,000 ML IV SCH (06:10)
[2017-02-09 06:14] VITALS: PULSE 71
[2017-02-09] MEDS: Heparin 5,000 Unit/mL Inj SUBQ SCH (07:13)
[2017-02-09] MEDS: Insulin Human REGular 300 Unit/3 mL Inj SUBQ SCH ×2 (07:30→11:30)
[2017-02-09 08:00] VITALS: PULSE 92
[2017-02-09] MEDS: Pantoprazole 40 mg ER24 Tablet PO SCH (08:11)
[2017-02-09 08:47] LABS: BASOPHILS % (AUTO) 0.3 % (0-3); EOSINOPHILS % (AUTO) 2.1 % (0-5); MONOCYTES % (AUTO) 11.4 % (4-12); Mean Corpuscular Volume 91.2 fL (81-100); NEUTROPHILS % (AUTO) 72.8 % (40-74); Platelet Count 279 bil/L (150-400)
[2017-02-09 08:59] LABS: Magnesium 1.8 mg/dL (1.6-2.6)
[2017-02-09 09:18] VITALS: BP 189/79; PULSE 83; RESP 18; O2SAT 98
[2017-02-09] MEDS ORDERED: ONDA8TAB7 PO (09:24)
[2017-02-09] MEDS ORDERED: HYDR2TAB28 PO (09:24)
--- NOTE | 2017-02-09 09:25 | PCM.DIMED ---
Discharge Instructions Date of Service Feb 09, 2017 Dates of Hospitalization Feb 07, 2017 at 18:49 Discharge Diagnosis Discharge Diagnosis Vomiting 2/2 gastroparesis Diet Discharge Diet: Diabetic Activity Discharge Activity: No restrictions Call your provider Call your provider for: Fever or Chills, Chest pain, Vomitting, Excessive diarrhea Patient Instructions Follow-up with PCP in: 1 week Rico Platt MD Feb 09, 2017 09:25
--- NOTE | 2017-02-09 09:27 | PCM.DC.MED ---
Discharge Summary Date of Service Feb 09, 2017 Dates of Hospitalization Date of Hospital Admission Feb 07, 2017 at 18:49 Date of Discharge: Feb 09, 2017 Providers: Admitting Physician: Edvin Ortega MD Primary Care Physician: Benny Hitchcock MD Attending Physician: Immanuel Chow MD Diagnosis at Time of Discharge Diagnosis at Time of Discharge Vomiting 2/2 gastroparesis Procedures XRay, CTs & MRIs Abdomen pelvis CT performed 02/07/2017 IMPRESSION: 1. No renal stone or hydronephrosis. 2. No free fluid or air. 3. No dilated loops of bowel. 4. The appendix is normal. 5. 2.9 cm hypoattenuating lesion in the right lobe liver. Recommend CT scan of the abdomen with contrast when clinically feasible. 6. Small hiatal hernia. 7. Atherosclerosis including the coronary vasculature. 8. Mild, circumferential urinary bladder wall thickening which could be due to nondistention versus infectious or infiltrating process. Recommend correlation with urinalysis findings. 9. Lytic lesions involving the L1, L2 and L3 vertebral bodies. Recommend MRI of the lumbar spine with and without gadolinium to exclude metastatic disease. Dictated by: Shanita Mims MD, PhD on 02/07/2017 at 15:32 ECG 12 Lead EKG: Heart rate 119, sinus tachycardia, R BBB and L PFB, no significant change from previous. SC 142, QTC 475. Brief History Orville Kaplan is a 61-year-old gentleman with history of gastroparesis, type II diabetes, non-insulin using, diabetic neuropathy, chronic renal failure on dialysis Friday, malignant hypertension, coronary artery disease status post cardiac stent, GERD, and hyperlipidemia presented to the emergency department today with ongoing complaint of epigastric burning abdominal pain that has been present for 3-4 days. He was seen in the emergency department twice yesterday for abdominal pain with emesis but workup was negative for any infectious etiology he is given antiemetics and discharged home. ER documentation notes he requested repeatedly Dilaudid by name, but was informed that this would be counterproductive to his treatment of gastroparesis. He is not on any medications at home for gastroparesis, diabetes or hypertension. Patient's nausea was transiently under control in the ER, but was unable to pass by mouth challenge, he received a abdominal pelvis CT which incidentally showed lytic lesions to his lumbar spine. He has had an increasing white blood cell count over the last 2 days, has not been able to keep down any enteral fluids or nutrition. He denies any diarrhea, has not recently had a bowel movement. He still able to make urine but has not done so recently. He denies any fever, chills, lightheadedness or dizziness, endorses nausea with some shortness of breath. No change in paresthesias/ neuropathy in his extremities. He reports going to dialysis earlier today. On presentation to the emergency department temperature 36.6 Celsius, 128, 24, 206/98, 100% on room air. White blood cells 14.3, hemoglobin 12.2, 92.5% neutrophils Sodium 130 (132 corrected for glucose), chloride 84, BUN 28, creatinine 3.91 ( below baseline), blood glucose 237. AG of 20 (22 with corrected sodium). LA 1.1 , troponin 0.151 (appears to be baseline) Abdomen pelvis CT: Mild circumferential urinary bladder wall thickening, lytic lesions to L1, L2 and L3 vertebral bodies. 2.9 cm hypoattenuating lesion of the right lobe liver. EKG: Heart rate 119, sinus tachycardia, R BBB and L PFB, no significant change from previous. SC 142, QTC 475. Patient was given a liter of IV fluids through peripheral IV in his foot, heart rate transiently decreased to below 100 but has remained tachycardic sent. Blood pressure remained in the high 100s and low 200s. He was admitted for acute exacerbation of chronic gastroparesis, incidental findings of lytic lesions requiring additional workup. Hospital Course 61-year-old gentleman with complicated medical history presents with intractable vomiting secondary to gastroparesis, elevated blood pressure, tachycardia, incidentally found to have lytic lesions in his spine and questionable radiographic findings in his bladder. Acute on chronic Gastroparesis, present on admission, resolved patient improved patient has severe diabetic neuropathy causing pain in addition to his gastroparesis, everytime he starts having a bout, what has worked for him is pain control and antinausea medication Lumbar changes, present on admission, resolved New findings of Lytic lesions to lumbar 1, 2 and 3. Circumferential bladder wall thickening possible infectious or infiltrative process Lumbar MRI - consistent with Schmorl's nodes, no signs of metastatic disease Acute on chronic hypertensive urgency, present on admission, active patient gets that response to pain , not on antihypertensives at home. Elevated troponin. Present on admission Likely due to demand ischemia as well as from renal failure no chest pain Chronic uncontrolled diabetes type II, non-insulin using, present on admission, active Blood glucose 237 at admission, without polyuria, no polydipsia Low-dose correctional insulin was used in hospital Acute worsening leukocytosis, present on admission, active Likely reactive 2/2 vomiting Acute on chronic kidney injury, present on admission, active Hemodialysis dependent, Friday, has fistula, does not have a port, felt fistulas in the past on his upper extremities have left us with only lower extremity IV access. Received hemodialysis 02/07/2017 Intend to maintain hemodialysis schedule Dr. Sullivan saw the patient Chronic pain with chronic opioid use, present on admission, active Difficult case as patient's pain makes his bp worse, however narcotics cannot be given due to gastroparesis, patient has extensive neuropathy and needs pain killers to control his pain Discussed with Dr. Lynn, who knows the patient very well, says he does well with pain control with narcotics Exam Vital Signs (Last) Date Time Temp Pulse Resp B/P Pulse Ox O2 Delivery O2 Flow Rate FiO2 02/09/17 09:18 36.7 83 18 189/79 98 Room Air Test 02/07/17 16:10 02/08/17 08:55 02/09/17 08:05 Prothrombin Time 10.2sec (8.1-12.5) Prothromb Time International Ratio 0.95ratio Lactic Acid Level 1.1mmol/L (0.4-2.0) Lipase 11U/L (13-60) Procalcitonin 0.36ng/mL (0.00-0.08) Total Bilirubin 0.3mg/dL (0.0-1.2) Aspartate Amino Transf (AST/SGOT) 15U/L (0-50) Alanine Aminotransferase (ALT/SGPT) 7U/L (0-44) Alkaline Phosphatase 106U/L (25-160) Troponin T 0.127ug/L (0.0-0.011) Total Protein 7.0g/dL (6.4-8.4) Albumin 3.8g/dL (3.4-5.0) White Blood Count 9.5th/mm3 (3.8-10.1) Red Blood Count 4.30mil/mm3 (4.40-5.80) Hemoglobin 12.9g/dL (13.8-17.2) Hematocrit 39.2% (41.0-50.0) Mean Corpuscular Volume 91.2fL (81-100) Mean Corpuscular Hemoglobin 30.0pg (27.0-35.0) Mean Corpuscular Hemoglobin Concent 32.9% (32.0-37.0) Red Cell Distribution Width 13.8% (12.3-15.4) Platelet Count 279bil/L (150-400) Neutrophils (%) (Auto) 72.8% (40-74) Lymphocytes (%) (Auto) 13.0% (14-46) Monocytes (%) (Auto) 11.4% (4-12) Eosinophils (%) (Auto) 2.1% (0-5) Basophils (%) (Auto) 0.3% (0-3) Sodium Level 133mEq/L (134-144) Potassium Level 4.4mEq/L (3.5-5.2) Chloride Level 90mEq/L (97-108) Carbon Dioxide Level 24mmol/L (18-29) Blood Urea Nitrogen 56mg/dL (8-27) Creatinine 6.18mg/dL (0.76-1.27) Estimat Glomerular Filtration Rate 10mL/min (>59) Glucose Level 151mg/dL (60-99) Calcium Level 8.3mg/dL (8.5-10.1) Magnesium Level 1.8mg/dL (1.6-2.6) Discharge Medications Discharge Medications Pantoprazole DR (Pantoprazole DR) 40 Mg Tablet.dr 40 MG PO BID Prescribed by: EDVIN BOLIVAR, As needed Calcium Carbonate (Tums) 500 Mg Tab.chew 1,000 MG PO PRN PRN PRN For Indigestion (Reported) Hydromorphone (Hydromorphone) 2 Mg Tablet 2 MG PO Q4H PRN PRN Pain Prescribed by: IMMANUEL CHOW MD Ondansetron ODT (Zofran ODT) 8 Mg Tablet 8 MG PO Q4H PRN PRN For Nausea Prescribed by: IMMANUEL CHWO MD Followup Plan Discharge Diet: Diabetic Discharge Activity: No restrictions Follow-up with PCP in: 1 week Time spent 35 mins Immanuel Chow MD Feb 09, 2017 09:27 Ondansetron ODT (Zofran ODT) 8 Mg Tablet 8 MG PO Q4H PRN PRN For Nausea Prescribed by: IMMANUEL CHOW MD Followup Plan Discharge Diet: Diabetic Discharge Activity: No restrictions Follow-up with PCP in: 1 week Immanuel Chow MD Feb 09, 2017 09:27 Followup Plan Discharge Diet: Diabetic Discharge Activity: No restrictions Follow-up with PCP in: 1 week Immanuel Chow MD Feb 09, 2017 09:27
--- NOTE | 2017-02-09 11:36 | NUR ---
Social Work Note: Initial Assessment/Discharge Data& Assessment: EMR reviewed. LAUNDRY ASSISTANT met with pt at bedside to discuss discharge planning, SW role explained and Discharge Planning Checklist provided. Per MD in multidisciplinary rounds, pt is medically ready for discharge. Orville Kaplan is a 61 year old male admitted on 02/07/2017 for NSTEMI and intractable vomiting. Pt has Medicare and [facility] supplemental insurance coverage. Pt sees Benny Hitchcock MD for all of his primary care. Pt is a M, W, F, HD pt at [facility], pt does not identify any concerns or barriers to getting to dialysis. Pt lives in [place] with his son in a multilevel home. Pt is independent at baseline with all ADL's and does not use any DME. MD does not identify any concerns with pt capacity for self care. Pt independent with self care during this hospitalization except for when self care-or ambulation-was hindered by his IV line connected to his ankle. Pt has been to [facility] before but does not have HH hx. Pt does not have [facility] insurance or VA benefits. Pt declined DPOA/AD paperwork. Pt son to transport pt home today. Pt denies any other needs. No other discharge needs or MD orders identified. Plan: Per MD, pt is medically ready to discharge home via POV. Pt denies any other needs. No other discharge needs or MD orders identified. MARCOS Mckoy Addendum: 02/09/17 at 1141 by MARCELA DAY Amended: Links added.
--- NOTE | 2017-02-09 12:20 | PCM.PNNEPH ---
Subjective Date of Service Feb 09, 2017 Subjective Patient is feeling somewhat better. He is able to tolerate his diet and offers no new complaints. His MRI of his spine was consistent with severe degenerative joint disease but no evidence of any metastatic lesions. Normal point of view he can be discharged today. Exam Vital Signs Vital Sign - Last Date Time Temp Pulse Resp B/P Pulse Ox O2 Delivery O2 Flow Rate FiO2 02/09/17 09:18 36.7 83 18 189/79 98 Room Air Intake and Output 02/08/17 02/08/17 02/09/17 Cumulative From/Thru 15:00 23:00 07:00 02/07/17 14:41 - 02/09/17 06:01 Intake Total 787 ml 1137 ml 737 ml 4278 ml Output Total 0 ml 0 ml 0 ml Balance 787 ml 1137 ml 737 ml 4278 ml Intake Oral 947 ml 600 ml 1547 ml IV Total 787 ml 190 ml 137 ml 2731 ml Output Urine Total 0 ml 0 ml 0 ml # Bowel Movements 0 0 Exam Neck is supple without adenopathy thyromegaly or jugular venous distention. Lungs are clear to auscultation. Heart is regular and rhythmical with a soft systolic murmur. Abdomen is soft without any tenderness rebound guarding masses or hepatosplenomegaly. Extremities without shortening or evidence of any clubbing cyanosis or edema. Lab and Diagnostics Result Diagram: 02/09/1780402/09/17 08 X-Rays, CTs and MRIs Abdomen pelvis CT performed 02/07/2017 IMPRESSION: 1. No renal stone or hydronephrosis. 2. No free fluid or air. 3. No dilated loops of bowel. 4. The appendix is normal. 5. 2.9 cm hypoattenuating lesion in the right lobe liver. Recommend CT scan of the abdomen with contrast when clinically feasible. 6. Small hiatal hernia. 7. Atherosclerosis including the coronary vasculature. 8. Mild, circumferential urinary bladder wall thickening which could be due to nondistention versus infectious or infiltrating process. Recommend correlation with urinalysis findings. 9. Lytic lesions involving the L1, L2 and L3 vertebral bodies. Recommend MRI of the lumbar spine with and without gadolinium to exclude metastatic disease. Dictated by: Shanita Mims MD, PhD on 02/07/2017 at 15:32 12-lead ECG EKG: Heart rate 119, sinus tachycardia, R BBB and L PFB, no significant change from previous. AL 142, QTC 475. Plan Impression Impression #1 end-stage renal disease dialysis dependent number to diabetic nephropathy #3 diabetic gastroparesis #4 hypertension with hypertensive heart disease and hypertensive nephrosclerosis #5 degenerative disc disease throughout the lumbar spine. Recommendation #14 Myfort[facility] be discharged today with instructions to follow up for his routine dialysis treatment tomorrow morning. Dewayne Lynn DO Feb 09, 2017 12:20
--- NOTE | 2017-02-09 13:21 | NUR ---
DISCHARGE Pt dc'd home at 1310, off unit accompanied by son and MUNICIPAL ENGINEER. Vital signs stable, denies pain and in no apparent distress. IV dc'd intact, all belongings returned. All instructions for diet, activity, medications, prescriptions and follow up reviewed with pt who reports understanding.
== END 2017-02-09 13:00 | disposition home or self-care (01) | DRG 73 ==
LOC: SED 14:34 → MPC 18:49
PROVIDERS: ADMIT Hospitalist; ATTEND Internal Medicine
DX: E11.43 Type 2 diabetes mellitus with diabetic autonomic (poly)neuropathy (principal); N18.6 End stage renal disease; I13.11 Hypertensive heart and chronic kidney disease without heart failure, with stage 5 chronic kidney disease, or end stage renal disease; K31.84 Gastroparesis; M25.562 Pain in left knee; K21.9 Gastro-esophageal reflux disease without esophagitis; E78.5 Hyperlipidemia, unspecified; I25.10 Atherosclerotic heart disease of native coronary artery without angina pectoris; I16.0 Hypertensive urgency; M47.896 Other spondylosis, lumbar region; E87.8 Other disorders of electrolyte and fluid balance, not elsewhere classified; I73.9 Peripheral vascular disease, unspecified; Z79.891 Long term (current) use of opiate analgesic; Z95.5 Presence of coronary angioplasty implant and graft; Z87.891 Personal history of nicotine dependence; Z99.2 Dependence on renal dialysis

== ENCOUNTER 2017-02-12 05:01 | Inpatient (IN) | payer MEDICARE, OTHER ==
[~2017-02-12] VITALS: Ht 185.4 cm; Wt 84.5 kg
[2017-02-12] VITALS (20 sets, daily range): BP systolic 118–223; BP diastolic 56–113; PULSE 72–123; RESP 14–22; O2SAT 91–100
[2017-02-12] MEDS: HYDROmorphone 0.5 mg/0.5 mL iSecure Syringe IVPUSH PRN ×7 (05:37→14:19)
[2017-02-12] MEDS: Ondansetron 2 mg/mL 2 mL Inj IVPUSH PRN ×5 (05:37→21:51)
[2017-02-12 06:00] LABS: BASOPHILS % (AUTO) 0.1 % (0-3); EOSINOPHILS % (AUTO) 0.1 % (0-5); MONOCYTES % (AUTO) 3.2 % (4-12); Mean Corpuscular Hemoglobin 30.4 pg (27.0-35.0); Mean Corpuscular Volume 90.5 fL (81-100); NEUTROPHILS % (AUTO) 94.8 % (40-74); Platelet Count 302 bil/L (150-400)
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
[2017-02-12] MEDS ORDERED: HYDROmorphone 1 mg/mL Inj IVPUSH PRN (06:05)
[2017-02-12] MEDS ORDERED: Ondansetron 2 mg/mL 2 mL Inj IVPUSH PRN ×2 (06:05→07:45)
[2017-02-12 06:29] LABS: Magnesium 1.7 mg/dL (1.6-2.6)
[2017-02-12 06:51] LABS: TROPONIN T 0.128 ug/L (0.0-0.011)
[2017-02-12] MEDS ORDERED: Labetalol 5 mg/mL 20 mL Inj IVPUSH ONE ×3 (07:10→09:40)
--- NOTE | 2017-02-12 07:42 | PCM.HPMED ---
Subjective Date of Service Feb 12, 2017 Primary Provider: Admitting Physician: Primary Care Physician: Benny Hitchcock MD Attending Physician: Allergies Coded Allergies: Cephalosporins (Verified Adverse Reaction, Severe, rash and seizure, ) PMH Social History Hx Alcohol Use: No Hx Substance Use: Yes (marijuana 2-3 times/week) Hx Tobacco Use: Yes Smoking Status: Former Smoker Exam Vital Signs Vital Sign - Last Date Time Temp Pulse Resp B/P Pulse Ox O2 Delivery O2 Flow Rate FiO2 02/12/17 05:09 36.7 123 19 223/101 97 Room Air Lab and Diagnostics Result Diagram: 02/12/17 0546 02/12/17 0546 Yvon Pratt MD Feb 12, 2017 07:42
[2017-02-12] MEDS ORDERED: Alum-Mag Hydrox-Simeth 30 mL Suspension PO PRN ×2 (07:45→15:35)
--- NOTE | 2017-02-12 07:46 | DRSVH ---
PROCEDURE: X-RAY CHEST ONE VIEW, PORTABLE ([id number]) INDICATIONS: SHORT OF BREATH TECHNIQUE: One view of the chest was acquired. COMPARISON: Merged With [facility], CR, XR CHEST 1VW (PORTABLE), 07/07/2016, 6:36. FINDINGS: Surgical changes and devices: None. Lungs and pleura: No pleural effusions or pneumothorax. Lungs are clear. Mediastinum: Mediastinal contours appear normal. Heart size is normal. Bones and chest wall: No suspicious bony lesions. Overlying soft tissues appear unremarkable. IMPRESSION: No radiographic evidence of acute cardiopulmonary pathology. Dictated by: Pablito Demarco M.D. on 02/12/2017 at 7:43 Approved by: Pablito Demarco M.D. on 02/12/2017 at 7:44
[2017-02-12] MEDS ORDERED: Pantoprazole 4 mg/mL 10 mL Inj IVPUSH ONE (07:50)
[2017-02-12] MEDS ORDERED: Promethazine Inj 25 MG in Dextrose 5%-Pha MIX 50 ML IV ONE (07:55)
[2017-02-12] MEDS ORDERED: Pantoprazole Inj 80 MG, Pharmacy To Mix 1 EA in 0.9% Sodium Chloride 80 ML IV ONE ×2 (07:55)
[2017-02-12] MEDS ORDERED: NiCARdipine Inj 25 MG in Dextrose 5% 240 ML IV SCH (11:15)
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
[2017-02-12] MEDS ORDERED: Polyethylene Glycol (PEG) 17 Gm Powder PO PRN (15:35)
[2017-02-12] MEDS: Heparin 5,000 Unit/mL Inj SUBQ SCH (16:30)
[2017-02-12] MEDS: HYDROmorphone 1 mg/mL Inj IVPUSH PRN ×2 (17:28→21:55)
[2017-02-13] VITALS (10 sets, daily range): BP systolic 132–200; BP diastolic 61–83; PULSE 78–97; RESP 16–19; O2SAT 95–99
[2017-02-13] MEDS: Heparin 5,000 Unit/mL Inj SUBQ SCH ×4 (00:30→22:37)
[2017-02-13] MEDS: Ondansetron 2 mg/mL 2 mL Inj IVPUSH PRN ×6 (02:42→23:55)
[2017-02-13] MEDS: HYDROmorphone 1 mg/mL Inj IVPUSH PRN ×6 (02:47→23:57)
[2017-02-13 02:48] LABS: BASOPHILS % (AUTO) 0.3 % (0-3); EOSINOPHILS % (AUTO) 0.7 % (0-5); MONOCYTES % (AUTO) 10.4 % (4-12); Mean Corpuscular Hemoglobin 30.2 pg (27.0-35.0); Mean Corpuscular Volume 89.8 fL (81-100); NEUTROPHILS % (AUTO) 80.8 % (40-74); Platelet Count 306 bil/L (150-400)
[2017-02-13 03:45] LABS: Magnesium 1.7 mg/dL (1.6-2.6); Phosphorus 5.2 mg/dL (2.5-4.9)
[2017-02-13] MEDS ORDERED: Pantoprazole Inj 80 MG in 0.9% Sodium Chloride 80 ML IV SCH (08:15)
[2017-02-13] MEDS: Pantoprazole 4 mg/mL 10 mL Inj IVPUSH SCH ×2 (08:30→21:04)
--- NOTE | 2017-02-13 09:26 | PCM.PNNEPH ---
ROGERS ASHER DO 02/13/17 0926: Subjective Date of Service Feb 13, 2017 Subjective Patient received dialysis yesterday with 2 L ultrafiltrate removed. Blood pressures been somewhat labile ranging from 110's/50s to 200s/80s. The nicardipine drip stopped and has labetalol when necessary orders. White count has trended down and H&H continues to trend down slightly. Troponins were negative 2 and electrolyte panel shows improvement in creatinine. Overall he states he feels very good, the presenting symptoms of nausea vomiting dissipated and he has not had an additional episode of hematemesis. Exam Vital Signs Vital Sign - Last Date Time Temp Pulse Resp B/P Pulse Ox O2 Delivery O2 Flow Rate FiO2 02/13/17 07:44 161/68 02/13/17 07:34 37.1 89 17 95 Room Air Intake and Output 02/12/17 02/12/17 02/13/17 Cumulative From/Thru 15:00 23:00 07:00 02/12/17 05:09 - 02/13/17 06:19 Intake Total 175 ml 400 ml 575 ml Output Total 2000 ml 0 ml 2000 ml Balance -1825 ml 400 ml -1425 ml Intake Oral 400 ml 400 ml IV Total 175 ml 175 ml Output Urine Total 0 ml 0 ml Ultrafiltrate 2000 ml 2000 ml Exam General: Awake and alert lying in hospital bed in no acute distress HEENT: Normocephalic, atraumatic. External ears without defect. Pupils equal, round, and reactive to light and accommodation. Anicteric sclerae, moist conjunctivae, moist mucosa, poor dentition Neck: Supple with full range of motion. No jugular venous distension. Cardiovascular: Regular rate with regular rhythm, blowing systolic murmur heard best at left sternal border Pulmonary: Clear to auscultation bilaterally with no crackles. Normal respiratory effort with no use of accessory muscles. Abdomen: Bowel tones present. Soft, nondistended. Nontender to palpation post 4 quadrants Extremities: No clubbing, cyanosis, edema left lower extremity digits surgically removed. . Left upper extremity markedly more swollen than right, chronically Skin: Normal temperature, turgor, and texture Neurological: Cranial nerves grossly intact. Psychiatric: Flat affect, A&Ox4 Lab and Diagnostics Result Diagram: 02/13/17 0243 02/13/17 0243 X-Rays, CTs and MRIs X-RAY CHEST ONE VIEW, PORTABLE IMPRESSION: No radiographic evidence of acute cardiopulmonary pathology. Dictated by: Pablito Demarco M.D. on 02/12/2017 at 7:43 Approved by: Pablito Demarco M.D. on 02/12/2017 at 7:44 . 12-lead ECG Sinus tachycardia rate 113 Ventricular premature complex Right bundle branch block Aberrent conduction of SV complexes Non-specific ST changes Plan Impression End-stage renal disease -HD scheduled Friday -HD yesterday at 2 L UF taken off -Repeat tomorrow 02/14/2017 if still inpatient Elevated troponin in the setting of ESRD -EKG shows sinus tach first-degree AV block with rhythmic change from prior EKG and new or worsening ischemia/infarction -Initial troponin elevated, repeat level static -No reports of chest pain -Telemetry Anemia -Post likely secondary to ESRD -History of [place]-Griffith tears with reported recent hematemesis -Hemoglobin on admit 11.2, with downward trend to 10.4 today -No currents of hematemesis -Stool guaiac pending -Consider Carafate per primary team -Transfusion threshold Hg 8 Hypertension -Was likely secondary to fluid overload as patient missed hemodialysis today, no home blood pressure medications - Blood pressures have trended down -Nicardipine DC'd -Labetalol when necessary Isabella Pepper MD 02/13/17 1503: Exam Lab and Diagnostics Result Diagram: 02/13/17 0243 02/13/17 0243 Plan Impression Pt was seen and examined. Case discussed with Dr. Asher. Agree with assessment and plan as outlined above. Tomasa Hamilton MD. ROGERS ASHER DO Feb 13, 2017 09:26 Isabella Pepper MD Feb 13, 2017 15:03
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
[2017-02-14 04:22] LABS: BASOPHILS % (AUTO) 0.3 % (0-3); EOSINOPHILS % (AUTO) 1.3 % (0-5); MONOCYTES % (AUTO) 13.4 % (4-12); Mean Corpuscular Hemoglobin 30.2 pg (27.0-35.0); Mean Corpuscular Volume 92.7 fL (81-100); NEUTROPHILS % (AUTO) 70.2 % (40-74); Platelet Count 280 bil/L (150-400)
[2017-02-14 04:31] VITALS: BP 112/51; PULSE 82; RESP 14; O2SAT 98
[2017-02-14 05:36] VITALS: PULSE 73
[2017-02-14] MEDS: Ondansetron 2 mg/mL 2 mL Inj IVPUSH PRN ×2 (06:28→10:55)
[2017-02-14] MEDS: HYDROmorphone 1 mg/mL Inj IVPUSH PRN (06:32)
[2017-02-14 08:07] VITALS: BP 168/82; PULSE 78; RESP 16; O2SAT 96
[2017-02-14] MEDS: Heparin 5,000 Unit/mL Inj SUBQ SCH ×2 (08:09→15:31)
[2017-02-14] MEDS: Pantoprazole 4 mg/mL 10 mL Inj IVPUSH SCH (08:17)
--- NOTE | 2017-02-14 08:31 | PCM.PNNEPH ---
ROGERS ASHER DO 02/14/17 0831: Subjective Date of Service Feb 14, 2017 Subjective Became hypertensive requiring Labetalol administration. Dilaudid and zofran given for pain/nausea with effect. Today Pt states he feels much better, seems to be in good spirits. Still has a non productive cough. Denies significant pain or discomfort. Exam Vital Signs Vital Sign - Last Date Time Temp Pulse Resp B/P Pulse Ox O2 Delivery O2 Flow Rate FiO2 02/14/17 08:07 36.9 78 16 168/82 96 Room Air Intake and Output 02/13/17 02/13/17 02/14/17 Cumulative From/Thru 15:00 23:00 07:00 02/12/17 05:09 - 02/14/17 06:45 Intake Total 320 ml 1480 ml 2375 ml Output Total 100 ml 100 ml 2200 ml Balance 220 ml 1380 ml 175 ml Intake Oral 320 ml 1480 ml 2200 ml IV Total 175 ml Output Urine Total 100 ml 100 ml 200 ml Ultrafiltrate 2000 ml Exam General: Awake and alert lying in hospital bed in no acute distress HEENT: Normocephalic, atraumatic. External ears without defect. Pupils equal, round, and reactive to light and accommodation. Anicteric sclerae, moist conjunctivae, moist mucosa, poor dentition Neck: Supple with full range of motion. Cardiovascular: Regular rate with regular rhythm, blowing systolic murmur heard best at left sternal border Pulmonary: Clear to auscultation bilaterally with no crackles. Normal respiratory effort with no use of accessory muscles. Abdomen: Soft, nondistended. Nontender to palpation post 4 quadrants Extremities: No clubbing, cyanosis, edema left lower extremity digits surgically removed. Left upper extremity markedly more swollen than right, chronically Skin: Normal temperature, turgor, and texture Neurological: Cranial nerves grossly intact. Psychiatric: Awake and alert in good spirits Lab and Diagnostics Result Diagram: 02/14/17 0350 02/14/17 0350 X-Rays, CTs and MRIs X-RAY CHEST ONE VIEW, PORTABLE IMPRESSION: No radiographic evidence of acute cardiopulmonary pathology. Dictated by: Pablito Demarco M.D. on 02/12/2017 at 7:43 Approved by: Pablito Demarco M.D. on 02/12/2017 at 7:44 . 12-lead ECG Sinus tachycardia rate 113 Ventricular premature complex Right bundle branch block Aberrent conduction of SV complexes Non-specific ST changes Plan Impression End-stage renal disease -HD scheduled Friday -HD Scheduled for today 02/14/2017 Elevated troponin in the setting of ESRD -EKG showed sinus tach first-degree AV block with rhythmic change from prior EKG and new or worsening ischemia/infarction -Initial troponin elevated, repeat level static -No reports of chest pain -Telemetry Anemia -Post likely secondary to ESRD -History of [place]-Griffith tears with reported recent hematemesis -Hemoglobin on admit 11.2, appears to have stabilized at 10.3 -No currents of hematemesis -Stool guaiac pending -Consider Carafate per primary team -Transfusion threshold Hg 8 Hypertension -Was likely secondary to fluid overload as patient missed hemodialysis, no home blood pressure medications -Blood pressures have trended down with periods of elevation -Nicardipine DC'd -Labetalol PRN Isabella Pepper MD 02/14/17 1441: Exam Lab and Diagnostics Result Diagram: 02/14/17 0350 02/14/17 0350 Plan Impression Pt was seen and examined. Case discussed with Dr. Asher. Agree with assessment and plan as outlined above. Tomasa Hamilton MD. ROGERS ASHER DO Feb 14, 2017 08:31 Isabella Pepper MD Feb 14, 2017 14:41
--- NOTE | 2017-02-14 09:43 | PCM.DIMED ---
Ron Feliciano DO 02/14/17 0943: Discharge Instructions Date of Service Feb 14, 2017 Dates of Hospitalization Feb 12, 2017 at 11:58 Discharge Diagnosis Discharge Diagnosis ESRD Nausea and hematemesis HTN Elevated Troponin of uncertain significance DM2 Chronic Pain with opioid Habituation Leukocytosis Diet Discharge Diet: Renal Diet Activity Discharge Activity: No restrictions Call your provider Call your provider for: Fever or Chills, Shortness of breath, Bleeding, Chest pain, Vomitting, Excessive diarrhea, Weakness (unilateral) Patient Instructions Patient Instructions Eat smaller meals throughout the day. have 6 small meals a day. Avoid foods high in salt, sugar, and potassium. Continue your dialysis schedule. Follow-up plan Continue with your regularly Friday, Friday, Friday schedule of dialysis. You will see Dr. Lynn for these appointments. Follow-up Provider: Dewayne Lynn DO Follow-up with PCP in: 1 week Steve Garcia MD 02/15/17 0603: Discharge Instructions Attending's Statement The patient was seen and examined together with Dr. Feliciano on 02/14/2017 and I agree with the history, exam and plan as outlined in the note above. . Ron Feliciano DO Feb 14, 2017 09:43 Steve Garcia MD Feb 15, 2017 06:03
[2017-02-14 09:45] VITALS: BP 152/77; PULSE 80
[2017-02-14 11:07] VITALS: PULSE 91
[2017-02-14] MEDS ORDERED: PANT40TA3 PO (11:53)
[2017-02-14 14:55] VITALS: BP 154/76
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
== END 2017-02-14 16:21 | disposition home or self-care (01) | DRG 682 ==
LOC: SED 05:01 → PCC 11:58
PROVIDERS: ADMIT Internal Medicine; ATTEND Internal Medicine
PROC: 5A1D60Z (ICD-10-PCS; principal; 2017-02-12)
DX: I12.0 Hypertensive chronic kidney disease with stage 5 chronic kidney disease or end stage renal disease (principal); N18.6 End stage renal disease; I16.1 Hypertensive emergency; K92.0 Hematemesis; F11.20 Opioid dependence, uncomplicated; N25.81 Secondary hyperparathyroidism of renal origin; E11.22 Type 2 diabetes mellitus with diabetic chronic kidney disease; Z99.2 Dependence on renal dialysis; E11.21 Type 2 diabetes mellitus with diabetic nephropathy; E11.43 Type 2 diabetes mellitus with diabetic autonomic (poly)neuropathy; K31.84 Gastroparesis; Z87.891 Personal history of nicotine dependence; G89.29 Other chronic pain; R74.8 Abnormal levels of other serum enzymes; D63.1 Anemia in chronic kidney disease